=== PATIENT | male | born 1945 | race Caucasian/White ===

== ENCOUNTER → 2020-05-18 | Outpatient (CLI) | payer MEDICARE, OTHER ==
[2015-11-18 15:57] VITALS: BP 108/55
[~2020-05-18] MED LIST: ASPI81TA50 PO; ATOR10TA60 PO; DOCU-109 PO; FERR325T14 PO; LISI20TA18 PO; SILD100T PO; WARF3TAB54 PO
--- NOTE | 2020-05-18 09:04 | RAD ---
US DPLX CAROTID BILAT History: PAD / Spl. Instructions: / History: Multiple grayscale, color, and duplex spectral analysis waveform sonographic images were acquired of the carotid, subclavian, and vertebral arteries. Comparison: None Findings: RIGHT SIDE: Peak systolic flow velocity of the distal CCA is 120 cm/sec. Peak systolic flow velocity of the ICA is 141 cm/sec. The ICA/CCA ratio is 1.2. Peak end diastolic flow velocity of the ICA is 37 cm/sec. The peak systolic velocity of the ECA is 165 cm/sec. Atherosclerotic plaque formation is identified. LEFT SIDE: Peak systolic flow velocity of the distal CCA is 111 cm/sec. Peak systolic flow velocity of the ICA is 273 cm/sec. The ICA/CCA ratio is 2.5. Peak end diastolic flow velocity of the ICA is 73 cm/sec. Peak systolic flow velocity of the ECA is 178 cm/sec. Atherosclerotic plaque formation is identified. Vertebral arteries: Bilateral vertebral arteries demonstrate antegrade flow. Impression: Atherosclerosis of the cervical ICAs with velocities on the left consistent with greater than 70 perc ent stenosis and on the right with 50-69 percent stenosis. PQRS Compliance Statement - Stenosis calculations for carotid ultrasound studies are derived from giovanna idated velocity criteria which are known to correlate with the NASCET methodology. Electronically signed by: Kris Miller MD (05/18/2020 9:01 AM) [id number]
--- NOTE | 2020-05-18 11:43 | RAD ---
US ABDOMINAL AORTA SCREENING AAA Clinical Indication: Reason: tobacco use / Comparison: None. TECHNIQUE: Real-time grayscale, color-flow, Doppler spectral waveform analysis of the abdominal aorta . Findings: The proximal abdominal aorta maximum diameter is 2.5 cm, mid 2 cm, and distal 2 cm. The peak systolic velocity of the abdominal aorta is 108 cm/s. IMPRESSION: There is no abdominal aortic aneurysm. Electronically signed by: Alexander Montes MD (05/18/2020 11:41 AM) [id number]
--- NOTE | 2020-05-18 17:40 | CARD ---
MR#: [id number] Date of Study: 05/18/2020 Ordering Physician: WES JEFF, Referring Physician: WES JEFF, Tech: Cesia Calderon [facility] APPROVED REPORT EXAM: Two-dimensional and M-mode echocardiogram with Doppler and color Doppler. Other Information Quality : GoodHR: 91bpm Rhythm : APC's INDICATION CAD RISK FACTORS Hypertension Hyperlipidemia Smoking 2D DIMENSIONS RVDd3.0 (2.9-3.5cm)Left Atrium(2D)4.1 (1.6-4.0cm) IVSd1.2 (0.7-1.1cm)Aortic Root(2D)3.8 (2.0-3.7cm) LVDd4.7 (3.9-5.9cm)LVOT Diameter2.3 (1.8-2.4cm) PWd1.2 (0.7-1.1cm)LVDs3.0 (2.5-4.0cm) FS (%) 35.9 %SV67.8 ml Aortic Valve AoV Peak Axel.162.9cm/sAoV VTI37.2cm AO Peak GR.10.6mmHgLVOT Peak Axel.112.3cm/s AO Mean GR.6mmHgAVA (VMAX)2.82cm2 Mitral Valve MV E Eqbktjfq15.1cm/sMV DECEL [id number] MV A Nkndueai02.3cm/sE/A Ratio0.9 Pulmonary Valve PV Peak Wqbpjgzn21.9cm/s LEFT VENTRICLE The left ventricle is normal size. There is borderline to mild concentric left ventricular hypertroph y. The left ventricular systolic function is normal and the ejection fraction is within normal range. Estimated ejection fraction 55-60%. There is normal LV segmental wall motion. Transmitral Doppler f low pattern is Grade I-abnormal relaxation pattern. RIGHT VENTRICLE The right ventricle is normal size. There is normal right ventricular wall thickness. The right ventr icular systolic function is normal. ATRIA The left atrium size is normal. The right atrium size is normal. The interatrial septum is intact wit h no evidence for an atrial septal defect or patent foramen ovale as noted on 2-D or Doppler imaging. AORTIC VALVE The aortic valve is calcified but opens well. Doppler and Color Flow revealed no significant aortic r egurgitation. There is no significant aortic valvular stenosis. MITRAL VALVE The mitral valve is normal in structure and function. There is no evidence of mitral valve prolapse. There is no mitral valve stenosis. Doppler and Color-flow revealed mild mitral regurgitation. TRICUSPID VALVE The tricuspid valve is normal in structure and function. Doppler and Color Flow revealed no tricuspid valve regurgitation noted. There is no tricuspid valve stenosis. PULMONIC VALVE The pulmonary valve is normal in structure and function. Doppler and Color Flow revealed no pulmonic valvular regurgitation. GREAT VESSELS The aortic root is mildly enlarged. The IVC is normal in size and collapses >50% with inspiration. PERICARDIAL EFFUSION There is no evidence of significant pericardial effusion. Critical Notification Critical Value: No <Conclusion> The left ventricle is normal size. The left ventricular systolic function is normal and the ejection fraction is within normal range. Estimated ejection fraction 55-60%. There is borderline to mild concentric left ventricular hypertrophy. Doppler and Color Flow revealed no significant aortic regurgitation. There is no significant aortic valvular stenosis. Doppler and Color-flow revealed mild mitral regurgitation. Doppler and Color Flow revealed no tricuspid valve regurgitation noted. The aortic root is mildly enlarged. Signed by : Chilo Ureña MD Electronically Approved : 05/18/2020 17:39:21
== END ==
LOC: US 07:12
PROVIDERS: ATTEND Internal Medicine Cardiovascular Disease
DX: I65.23 Occlusion and stenosis of bilateral carotid arteries (principal); I08.0 Rheumatic disorders of both mitral and aortic valves; I25.10 Atherosclerotic heart disease of native coronary artery without angina pectoris; Z87.891 Personal history of nicotine dependence
CPT/HCPCS: 76770; 93306; 93880

== ENCOUNTER 2021-05-15 16:27 | Inpatient (IN) | payer MEDICARE, OTHER ==
[~2021-05-15] VITALS: Ht 182.9 cm; Wt 81.8 kg
[2021-05-15 14:00] VITALS: BP 120/59
[2021-05-15] MEDS ORDERED: FUROSEMIDE 40 MG/4 ML VIAL. IVP ONE (17:00)
[2021-05-15] MEDS ORDERED: ACETAMINOPHEN 325 MG TABLET. PO PRN (17:00)
[2021-05-15] MEDS ORDERED: ELECTROLYTE (NON-ICU) PROTOCOL. MC PRN (17:00)
[2021-05-15] MEDS ORDERED: CALCIUM CARBONATE 500 MG TAB.CHEW PO PRN (17:00)
[2021-05-15] MEDS ORDERED: ONDANSETRON PF 4 MG/2 ML VIAL. IVP PRN (17:00)
[2021-05-15] MEDS ORDERED: STERILE WATER for RESP 2,000 ML BAG. INH PRN (17:15)
[2021-05-15 18:23] LABS: BASO % 0 % (0-3); EOS # 0.1 x10^3/uL (0.0-0.7); EOS % 0 % (0-3); HEMATOCRIT 29.2 % (39.0-53.0); LYMPH # 0.9 x10^3/uL (1.0-4.8); LYMPH % 6 % (24-48); MEAN CORPUSCULAR HEMOGLOBIN 27 pg (25-35); MEAN CORPUSCULAR HGB CONC 31 g/dL (31-37); MEAN CORPUSCULAR VOLUME 87 fL (79-100); MONO # 1.4 x10^3/uL (0.0-1.1); MONO % 10 % (0-9); NEUT # 12.1 x10^3/uL (1.8-7.7); NEUT % 84 % (31-73); PLATELET COUNT 356 x10^3/uL (140-400); RED BLOOD COUNT 3.37 x10^6/uL (4.30-5.70); RED CELL DISTRIBUTION WIDTH 16.4 % (11.5-14.5); WHITE BLOOD COUNT 14.4 x10^3/uL (4.0-11.0)
[2021-05-15 18:37] LABS: ALBUMIN 3.2 g/dL (3.4-5.0); ALBUMIN/GLOBULIN RATIO 0.7 (1.0-1.7); CHOLESTEROL/HDL RATIO 2.5; GFR 32.9; POTASSIUM 3.5 mmol/L (3.5-5.1); TOTAL BILIRUBIN 0.6 mg/dL (0.2-1.0); TOTAL PROTEIN 7.7 g/dL (6.4-8.2)
--- NOTE | 2021-05-15 19:06 | RAD ---
XR CHEST 1V INDICATION: sob; left pleural effusion on osh imaging . COMPARISON STUDY: None. FINDINGS: Lungs: Normal lung volume. Bilateral perihilar and basilar heterogeneous opacity. Pleura: Trace left pleural effusion. Heart and Mediastinum: Cardiomegaly. Tortuous atherosclerotic aorta. IMPRESSION: Bilateral perihilar and basilar opacities, probably pulmonary edema or multifocal infection. Trace left pleural effusion. Electronically signed by: Kris Miller MD (05/15/2021 7:04 PM) [facility]
[2021-05-15 19:30] VITALS: BP_SYST 124; BP_SYST 149; BP_DIAS 59; BP_DIAS 88
[2021-05-15] MEDS: SENNOSIDES/DOCUSATE 8.6/50MG TABLET. PO SCH (20:40)
[2021-05-15] MEDS: DOCUSATE SODIUM 100 MG CAPSULE. PO SCH (21:00)
[2021-05-15] MEDS: cefTRIAXone IV Push 1 GM VIAL. IVP SCH (21:02)
[2021-05-15] MEDS: ATORVASTATIN CALCIUM 10 MG TABLET. PO SCH (21:02)
[2021-05-15] MEDS: PANTOPRAZOLE IV PUSH 40 MG VIAL. IVP SCH (21:02)
[2021-05-15] MEDS: AZITHROMYCIN 250 MG in IV NORMAL SALINE 250ML 250 ML IV SCH (21:03)
[2021-05-15] MEDS ORDERED: CONTRAST GIVEN. MC PRN (21:30)
[2021-05-15] MEDS ORDERED: IOHEXOL 300 MG/ML 100ML VIAL. IV ONE (21:30)
[2021-05-15 22:00] VITALS: BP 94/70
[2021-05-15] MEDS ORDERED: IV NORMAL SALINE 500ML BAG 500 ML IV PRN (22:00)
[2021-05-15] MEDS ORDERED: DEXMEDETOMIDINE 400 MCG in IV NORMAL SALINE 100ML 96 ML IV PRN (22:00)
[2021-05-15] MEDS ORDERED: ATROPINE 0.5 MG/5 ML DISP.SYRINGE. IV PRN (22:00)
--- NOTE | 2021-05-15 22:10 | PDOC1 ---
History and Physical Date of Service: DOS: DATE: 05/15/21 TIME: 22:10 Chief Complaint: Chief Complain: dyspnea History of Present Illness: HPI: Patient is 75-year-old white male presented to outside emergency room yesterday due to 3 to 4 days history of worsening shortness of breath. Particularly dyspnea on exertion bilateral lower extremity edema. In his usual state of health he can walk without shortness of breath but obviously this has been worsening. Presented to outside hospital and mention he had also been having bright red blood per rectum. He was anemic and did require blood transfusion. Also elevated troponin thought to be secondary to anemia. Eventually transferred here. For GI bleed elevated troponins. On arrival here patient with very labored respirations on nasal cannula. Frequently Saying he could not breathe. Did appear fluid overloaded. Contacted RT department to start Vapotherm. Also gave 80 IV Lasix one-time. Not much improvement with this thus at this point transferred him down to ICU. Started on BiPAP. Very anxious still labored breaths on arrival to ICU. Was maintaining saturations. Started on Precedex drip and instructed to intubate overnight if needed. Levophed ordered as well. Troponins were continually trending up. Cardiology consulted by outside facility and aware of patient. Holding off on heparin drip given GI bleed concern as well. Past Medical/Surgical History: PMH/PSH: CAD HTN Allergies: Allergies: Coded Allergies: No Known Drug Allergies (Unverified , 04/08/15) Family History: Family History: Cannot obtain from patient Social History: Social History: Daily tobacco smoker. Occasional alcohol use denies drug use Current Medications: Current Medications Current Medications Furosemide (Lasix) 80 mg 1X ONCE IVP Last administered on 05/15/21at 17:00; Start 05/15/21 at 17:00; Stop 05/15/21 at 17:01; Status DC Ondansetron HCl (Zofran) 4 mg PRN Q6HRS PRN IVP NAUSEA/VOMITING; Start 05/15/21 at 17:00 Calcium Carbonate/ Glycine (Tums) 500 mg PRN Q3HRS PRN PO UPSET STOMACH; Start 05/15/21 at 17:00 Info (Non-Icu Electrolyte Protocol) 1 ea PRN DAILY PRN MC SEE COMMENTS; Start 05/15/21 at 17:00 Acetaminophen (Tylenol) 650 mg PRN Q6HRS PRN PO Headaches, Temp > 101.5F; Start 05/15/21 at 17:00 Senna/Docusate Sodium (Senna Plus) 1 tab BID PO ; Start 05/15/21 at 21:00 Pantoprazole Sodium (PROTONIX VIAL for IV PUSH) 40 mg DAILYAC IVP Last administered on 05/15/21at 21:02; Start 05/15/21 at 18:00 Atorvastatin Calcium (Lipitor) 10 mg HS PO Last administered on 05/15/21at 21:02; Start 05/15/21 at 21:00 Docusate Sodium (Colace) 100 mg BID PO ; Start 05/15/21 at 21:00 Lisinopril (Prinivil) 10 mg DAILY PO ; Start 05/16/21 at 09:00 Sterile Water (WATER for RESP) 2,000 ml CONT PRN INH VIA VAPOTHERM DEVICE; Start 05/15/21 at 17:15 Ceftriaxone Sodium (Rocephin) 1 gm Q24H IVP Last administered on 05/15/21at 21:02; Start 05/15/21 at 20:00 Azithromycin 250 mg/Sodium Chloride 250 ml @ 250 mls/hr Q24H IV Last administered on 05/15/21at 21:03; Start 05/15/21 at 20:00 Iohexol (Omnipaque 300 Mg/ml) 60 ml 1X ONCE IV Last administered on 05/15/21at 21:51; Start 05/15/21 at 21:30; Stop 05/15/21 at 21:31; Status DC Info (CONTRAST GIVEN -- Rx MONITORING) 1 each PRN DAILY PRN MC SEE COMMENTS; Start 05/15/21 at 21:30; Stop 05/17/21 at 21:29 Dexmedetomidine HCl 400 mcg/ Sodium Chloride 100 ml @ 4.295 mls/ hr CONT PRN IV PER PROTOCOL; Start 05/15/21 at 22:00 Sodium Chloride 500 ml @ 500 mls/hr 1X PRN PRN IV SEE COMMENTS; Start 05/15/21 at 22:00 Atropine Sulfate (ATROPINE 0.5mg SYRINGE) 0.5 mg PRN Q5MIN PRN IV SEE COMMENTS; Start 05/15/21 at 22:00 Active Scripts Active Reported Colace (Docusate Sodium) 100 Mg Capsule 1 Cap PO BID Coumadin (Warfarin Sodium) 3 Mg Tablet 1 Tab PO DAILY Ferrous Sulfate 325 Mg Tablet 325 Mg PO Next dose tomorrow 11/19/15 09 am. Viagra (Sildenafil Citrate) 100 Mg Tablet 100 Mg PO ONCE Resume prior to hospitalization. Atorvastatin Calcium 10 Mg Tablet 10 Mg PO HS Next dose tonight at bed time. Lisinopril 20 Mg Tablet 10 Mg PO DAILY Next dose tomorrow 11/19/15 at 9 am. ROS: Review of Systems Review of System Other than labored respirations patient unable to provide much in way review of systems Physical Exam: Vital Signs: Vital Signs Date Time Temp Pulse Resp B/P (MAP) Pulse Ox O2 Delivery O2 Flow Rate FiO2 05/15/21 21:14 90 High Flow Nasal Cannula 05/15/21 20:00 28.0 05/15/21 19:30 98.2 119 28 124/59 (80) 98.2 Physcial Exam: GEN: Severe distress labored respirations HEENT: Normal cephalic, atraumatic, external auditory canals are patent EYES: Extraocular muscles are intact, pupil are equally round and reactive to light and accommodation MUSCULOSKELETAL: Well developed , well nourished, good range of motion ENDOCRINE: No thyromegaly was palpated LYMPHATICS: No cervical chain or axillary nodes were noted HEMATOPOIETIC: No bruising NECK: Supple, no JVD, no thyromegaly was noted LUNGS: Decreased air entry throughout. Labored respirations. On BiPAP HEART: Tachycardic ABDOMEN: Soft, nontender. Positive bowel sounds, no organomegaly, normal bowel sounds EXTREMITIES: Bilateral lower extremity edema NEUROLOGIC: Normal speech and tone. A&O x 3, moves all extremities, no obvious focal deficits PSYCHIATRIC: Normal affect, normal mood. Stable SKIN: No ulcerations or rashes, good skin turgor, no jaundice VASCULAR: Good capillary refill, neurovascular bundle appears to be intact Labs: Labs: Laboratory Tests Test 05/15/21 18:10 White Blood Count 14.4 x10^3/uL (4.0-11.0) Red Blood Count 3.37 x10^6/uL (4.30-5.70) Hemoglobin 9.0 g/dL (13.0-17.5) Hematocrit 29.2 % (39.0-53.0) Mean Corpuscular Volume 87 fL (79-100) Mean Corpuscular Hemoglobin 27 pg (25-35) Mean Corpuscular Hemoglobin Concent 31 g/dL (31-37) Red Cell Distribution Width 16.4 % (11.5-14.5) Platelet Count 356 x10^3/uL (140-400) Neutrophils (%) (Auto) 84 % (31-73) Lymphocytes (%) (Auto) 6 % (24-48) Monocytes (%) (Auto) 10 % (0-9) Eosinophils (%) (Auto) 0 % (0-3) Basophils (%) (Auto) 0 % (0-3) Neutrophils # (Auto) 12.1 x10^3/uL (1.8-7.7) Lymphocytes # (Auto) 0.9 x10^3/uL (1.0-4.8) Monocytes # (Auto) 1.4 x10^3/uL (0.0-1.1) Eosinophils # (Auto) 0.1 x10^3/uL (0.0-0.7) Basophils # (Auto) 0.0 x10^3/uL (0.0-0.2) Sodium Level 135 mmol/L (136-145) Potassium Level 3.5 mmol/L (3.5-5.1) Chloride Level 99 mmol/L (98-107) Carbon Dioxide Level 21 mmol/L (21-32) Anion Gap 15 (6-14) Blood Urea Nitrogen 32 mg/dL (8-26) Creatinine 2.0 mg/dL (0.7-1.3) Estimated GFR (Cockcroft-Gault) 32.9 BUN/Creatinine Ratio 16 (6-20) Glucose Level 137 mg/dL (70-99) Calcium Level 8.0 mg/dL (8.5-10.1) Total Bilirubin 0.6 mg/dL (0.2-1.0) Aspartate Amino Transf (AST/SGOT) 65 U/L (15-37) Alanine Aminotransferase (ALT/SGPT) 42 U/L (16-63) Alkaline Phosphatase 67 U/L (46-116) Troponin I High Sensitivity 6592 ng/L (4-75) Total Protein 7.7 g/dL (6.4-8.2) Albumin 3.2 g/dL (3.4-5.0) Albumin/Globulin Ratio 0.7 (1.0-1.7) Triglycerides Level 58 mg/dL (0-150) Cholesterol Level 98 mg/dL (0-200) LDL Cholesterol, Calculated 47 mg/dL (0-100) VLDL Cholesterol, Calculated 12 mg/dL (0-40) Non-HDL Cholesterol Calculated 59 mg/dL (0-129) HDL Cholesterol 39 mg/dL (40-60) Cholesterol/HDL Ratio 2.5 Thyroid Stimulating Hormone (TSH) 1.070 uIU/mL (0.358-3.74) Laboratory Tests Test 05/15/21 18:10 White Blood Count 14.4 x10^3/uL (4.0-11.0) Red Blood Count 3.37 x10^6/uL (4.30-5.70) Hemoglobin 9.0 g/dL (13.0-17.5) Hematocrit 29.2 % (39.0-53.0) Mean Corpuscular Volume 87 fL (79-100) Mean Corpuscular Hemoglobin 27 pg (25-35) Mean Corpuscular Hemoglobin Concent 31 g/dL (31-37) Red Cell Distribution Width 16.4 % (11.5-14.5) Platelet Count 356 x10^3/uL (140-400) Neutrophils (%) (Auto) 84 % (31-73) Lymphocytes (%) (Auto) 6 % (24-48) Monocytes (%) (Auto) 10 % (0-9) Eosinophils (%) (Auto) 0 % (0-3) Basophils (%) (Auto) 0 % (0-3) Neutrophils # (Auto) 12.1 x10^3/uL (1.8-7.7) Lymphocytes # (Auto) 0.9 x10^3/uL (1.0-4.8) Monocytes # (Auto) 1.4 x10^3/uL (0.0-1.1) Eosinophils # (Auto) 0.1 x10^3/uL (0.0-0.7) Basophils # (Auto) 0.0 x10^3/uL (0.0-0.2) Sodium Level 135 mmol/L (136-145) Potassium Level 3.5 mmol/L (3.5-5.1) Chloride Level 99 mmol/L (98-107) Carbon Dioxide Level 21 mmol/L (21-32) Anion Gap 15 (6-14) Blood Urea Nitrogen 32 mg/dL (8-26) Creatinine 2.0 mg/dL (0.7-1.3) Estimated GFR (Cockcroft-Gault) 32.9 BUN/Creatinine Ratio 16 (6-20) Glucose Level 137 mg/dL (70-99) Calcium Level 8.0 mg/dL (8.5-10.1) Total Bilirubin 0.6 mg/dL (0.2-1.0) Aspartate Amino Transf (AST/SGOT) 65 U/L (15-37) Alanine Aminotransferase (ALT/SGPT) 42 U/L (16-63) Alkaline Phosphatase 67 U/L (46-116) Troponin I High Sensitivity 6592 ng/L (4-75) Total Protein 7.7 g/dL (6.4-8.2) Albumin 3.2 g/dL (3.4-5.0) Albumin/Globulin Ratio 0.7 (1.0-1.7) Triglycerides Level 58 mg/dL (0-150) Cholesterol Level 98 mg/dL (0-200) LDL Cholesterol, Calculated 47 mg/dL (0-100) VLDL Cholesterol, Calculated 12 mg/dL (0-40) Non-HDL Cholesterol Calculated 59 mg/dL (0-129) HDL Cholesterol 39 mg/dL (40-60) Cholesterol/HDL Ratio 2.5 Thyroid Stimulating Hormone (TSH) 1.070 uIU/mL (0.358-3.74) Assessment/Plan Assessment/Plan Acute anemia secondary to GI bleed, troponinemia suspect type II NSTEMI secondary to bleed?, Acute hypoxic respiratory failure secondary to fluid overload suspect CHF exacerbation, ASHA; history CAD hypertension -Transferred from outside facility where he presented with shortness of breath and acute anemia. Noted to be fluid overloaded there -Presented here labored respirations. Eventually transferred to ICU and on BiPAP currently tolerating with Precedex -One-time 80 IV Lasix given on the floor for apparent fluid overload closely monitor urine output -Continue to trend troponins. Holding off on heparin drip due to GI bleed concern -Cardiology consultation -Required 1 unit packed red blood cells at outside emergency room. GI consult. Trend hemoglobin -Elevated creatinine has trended up. Consult to nephrology -Pulm consult for respiratory failure, BiPAP and if needed ventilator management -Home meds as indicated -Possible Collection Support Specialist in the morning? Was able to elicit from patient he is a full code 60 minutes critical care time. Justifications for Admission Other Justification ORLANDO GONZALEZ MD May 15, 2021 22:10
[2021-05-15 23:00] VITALS: BP 85/59
[2021-05-15 23:01] LABS: BASE EXCESS COOX -5 mmol/L (-3-3); HCO3 COOX 19 mmol/L (21-28); OXYHEMOGLOBIN 92.7 %; PCO2 COOX 32 mmHg (35-46); PO2 COOX 74 mmHg (65-108); SAT O2 COOX 93 % (92-99)
[2021-05-16] VITALS (27 sets, daily range): BP systolic 92–115; BP diastolic 46–70
[2021-05-16] MEDS ORDERED: NOREPINEPHRINE VIAL 8 MG in IV DEXTROSE 5% 250 ML IV PRN (00:30)
--- NOTE | 2021-05-16 01:20 | RAD ---
EXAM: CT CHEST WITH CONTRAST HISTORY: Shortness of breath on vapotherm. Emphysema, pneumonia. COMPARISON: None available TECHNIQUE: Helical CT of the chest performed after administration of 60 mL Omnipaque 300 intravenous contrast. Coronal and sagittal reformats were obtained. One or more of the following individualized dose reduction techniques were utilized for this examinat ion: 1. Automated exposure control 2. Adjustment of the mA and/or kV according to patient size 3. Use of iterative reconstruction technique. FINDINGS: Thyroid gland and thoracic inlet: Normal. Heart and great vessels: Heart is mildly enlarged. No pericardial effusion. Thoracic aorta is normal in caliber. There are coronary artery calcifications. Mediastinum and ant: Small mediastinal and hilar lymph nodes, likely reactive. Lungs and pleura: There are small bilateral pleural effusions with adjacent consolidative and groundg lass opacities in the posterior lower lobes. There is diffuse interlobular septal thickening. Mild gr oundglass and consolidative opacities in the posterior upper lobes. Motion artifact limits evaluatio n of the apices. Chest wall and axillae: No axillary lymphadenopathy. Upper abdomen: Probable sludge in the gallbladder. Upper abdomen is otherwise unremarkable. Bones: No acute osseous abnormality. IMPRESSION: 1. Diffuse interlobular septal thickening with dependent opacities, suspicious for mild pulmonary ed colten. Superimposed pneumonia is not excluded in the lower lobes. 2. Small pleural effusions. 3. Mild cardiomegaly. Coronary calcifications. Electronically signed by: Kay Lin MD (05/16/2021 1:18 AM) [facility]
[2021-05-16 04:39] LABS: BASO # 0.1 x10^3/uL (0.0-0.2); BASO % 1 % (0-3); EOS % 0 % (0-3); HEMOGLOBIN 8.5 g/dL (13.0-17.5); LYMPH # 0.8 x10^3/uL (1.0-4.8); LYMPH % 6 % (24-48); MEAN CORPUSCULAR HEMOGLOBIN 27 pg (25-35); MEAN CORPUSCULAR HGB CONC 31 g/dL (31-37); MEAN CORPUSCULAR VOLUME 86 fL (79-100); MONO # 1.4 x10^3/uL (0.0-1.1); MONO % 10 % (0-9); NEUT # 12.1 x10^3/uL (1.8-7.7); NEUT % 84 % (31-73); PLATELET COUNT 306 x10^3/uL (140-400); RED BLOOD COUNT 3.14 x10^6/uL (4.30-5.70); RED CELL DISTRIBUTION WIDTH 16.7 % (11.5-14.5); WHITE BLOOD COUNT 14.4 x10^3/uL (4.0-11.0)
[2021-05-16 05:05] LABS: ALBUMIN 2.9 g/dL (3.4-5.0); ALBUMIN/GLOBULIN RATIO 0.8 (1.0-1.7); CALCIUM 7.7 mg/dL (8.5-10.1); CREATININE 2.2 mg/dL (0.7-1.3); GFR 29.5; POTASSIUM 4.2 mmol/L (3.5-5.1); TOTAL BILIRUBIN 0.4 mg/dL (0.2-1.0); TOTAL PROTEIN 6.7 g/dL (6.4-8.2)
[2021-05-16] MEDS ORDERED: PERFLUTREN PROTEIN-A MICROSPHR 0.22 MG/ML 3 ML VIAL. IV ONE (08:15)
--- NOTE | 2021-05-16 08:15 | PDOC ---
PULMONARY PROGRESS NOTES DATE: 05/16/21 TIME: 08:14 Vitals Vital Signs Date Time Temp Pulse Resp B/P (MAP) Pulse Ox O2 Delivery O2 Flow Rate FiO2 05/16/21 06:00 93 18 99/62 (74) 100 BiPAP/CPAP 05/16/21 04:00 97.7 97.7 05/15/21 21:35 40.0 Labs Laboratory Tests Test 05/15/21 18:10 05/15/21 21:35 05/16/21 04:20 White Blood Count 14.4 x10^3/uL (4.0-11.0) 14.4 x10^3/uL (4.0-11.0) Red Blood Count 3.37 x10^6/uL (4.30-5.70) 3.14 x10^6/uL (4.30-5.70) Hemoglobin 9.0 g/dL (13.0-17.5) 8.5 g/dL (13.0-17.5) Hematocrit 29.2 % (39.0-53.0) 27.0 % (39.0-53.0) Mean Corpuscular Volume 87 fL (79-100) 86 fL (79-100) Mean Corpuscular Hemoglobin 27 pg (25-35) 27 pg (25-35) Mean Corpuscular Hemoglobin Concent 31 g/dL (31-37) 31 g/dL (31-37) Red Cell Distribution Width 16.4 % (11.5-14.5) 16.7 % (11.5-14.5) Platelet Count 356 x10^3/uL (140-400) 306 x10^3/uL (140-400) Neutrophils (%) (Auto) 84 % (31-73) 84 % (31-73) Lymphocytes (%) (Auto) 6 % (24-48) 6 % (24-48) Monocytes (%) (Auto) 10 % (0-9) 10 % (0-9) Eosinophils (%) (Auto) 0 % (0-3) 0 % (0-3) Basophils (%) (Auto) 0 % (0-3) 1 % (0-3) Neutrophils # (Auto) 12.1 x10^3/uL (1.8-7.7) 12.1 x10^3/uL (1.8-7.7) Lymphocytes # (Auto) 0.9 x10^3/uL (1.0-4.8) 0.8 x10^3/uL (1.0-4.8) Monocytes # (Auto) 1.4 x10^3/uL (0.0-1.1) 1.4 x10^3/uL (0.0-1.1) Eosinophils # (Auto) 0.1 x10^3/uL (0.0-0.7) 0.0 x10^3/uL (0.0-0.7) Basophils # (Auto) 0.0 x10^3/uL (0.0-0.2) 0.1 x10^3/uL (0.0-0.2) Sodium Level 135 mmol/L (136-145) 137 mmol/L (136-145) Potassium Level 3.5 mmol/L (3.5-5.1) 4.2 mmol/L (3.5-5.1) Chloride Level 99 mmol/L (98-107) 100 mmol/L (98-107) Carbon Dioxide Level 21 mmol/L (21-32) 23 mmol/L (21-32) Anion Gap 15 (6-14) 14 (6-14) Blood Urea Nitrogen 32 mg/dL (8-26) 36 mg/dL (8-26) Creatinine 2.0 mg/dL (0.7-1.3) 2.2 mg/dL (0.7-1.3) Estimated GFR (Cockcroft-Gault) 32.9 29.5 BUN/Creatinine Ratio 16 (6-20) 16 (6-20) Glucose Level 137 mg/dL (70-99) 104 mg/dL (70-99) Calcium Level 8.0 mg/dL (8.5-10.1) 7.7 mg/dL (8.5-10.1) Total Bilirubin 0.6 mg/dL (0.2-1.0) 0.4 mg/dL (0.2-1.0) Aspartate Amino Transf (AST/SGOT) 65 U/L (15-37) 91 U/L (15-37) Alanine Aminotransferase (ALT/SGPT) 42 U/L (16-63) 42 U/L (16-63) Alkaline Phosphatase 67 U/L (46-116) 65 U/L (46-116) Troponin I High Sensitivity 6592 ng/L (4-75) 97449 ng/L (4-75) Total Protein 7.7 g/dL (6.4-8.2) 6.7 g/dL (6.4-8.2) Albumin 3.2 g/dL (3.4-5.0) 2.9 g/dL (3.4-5.0) Albumin/Globulin Ratio 0.7 (1.0-1.7) 0.8 (1.0-1.7) Triglycerides Level 58 mg/dL (0-150) Cholesterol Level 98 mg/dL (0-200) LDL Cholesterol, Calculated 47 mg/dL (0-100) VLDL Cholesterol, Calculated 12 mg/dL (0-40) Non-HDL Cholesterol Calculated 59 mg/dL (0-129) HDL Cholesterol 39 mg/dL (40-60) Cholesterol/HDL Ratio 2.5 Thyroid Stimulating Hormone (TSH) 1.070 uIU/mL (0.358-3.74) O2 Saturation 93 % (92-99) Arterial Blood pH 7.39 (7.35-7.45) Arterial Blood pCO2 at Patient Temp 32 mmHg (35-46) Arterial Blood pO2 at Patient Temp 74 mmHg (65-108) Arterial Blood HCO3 19 mmol/L (21-28) Arterial Blood Base Excess -5 mmol/L (-3-3) Oxyhemoglobin 92.7 % Methemoglobin 0.0 % (0.0-1.9) Carbon Monoxide, Quantitative 0.0 % (0.0-1.9) FiO2 40l 100% vapotherm Laboratory Tests Test 05/15/21 18:10 05/15/21 21:35 05/16/21 04:20 White Blood Count 14.4 x10^3/uL (4.0-11.0) 14.4 x10^3/uL (4.0-11.0) Red Blood Count 3.37 x10^6/uL (4.30-5.70) 3.14 x10^6/uL (4.30-5.70) Hemoglobin 9.0 g/dL (13.0-17.5) 8.5 g/dL (13.0-17.5) Hematocrit 29.2 % (39.0-53.0) 27.0 % (39.0-53.0) Mean Corpuscular Volume 87 fL (79-100) 86 fL (79-100) Mean Corpuscular Hemoglobin 27 pg (25-35) 27 pg (25-35) Mean Corpuscular Hemoglobin Concent 31 g/dL (31-37) 31 g/dL (31-37) Red Cell Distribution Width 16.4 % (11.5-14.5) 16.7 % (11.5-14.5) Platelet Count 356 x10^3/uL (140-400) 306 x10^3/uL (140-400) Neutrophils (%) (Auto) 84 % (31-73) 84 % (31-73) Lymphocytes (%) (Auto) 6 % (24-48) 6 % (24-48) Monocytes (%) (Auto) 10 % (0-9) 10 % (0-9) Eosinophils (%) (Auto) 0 % (0-3) 0 % (0-3) Basophils (%) (Auto) 0 % (0-3) 1 % (0-3) Neutrophils # (Auto) 12.1 x10^3/uL (1.8-7.7) 12.1 x10^3/uL (1.8-7.7) Lymphocytes # (Auto) 0.9 x10^3/uL (1.0-4.8) 0.8 x10^3/uL (1.0-4.8) Monocytes # (Auto) 1.4 x10^3/uL (0.0-1.1) 1.4 x10^3/uL (0.0-1.1) Eosinophils # (Auto) 0.1 x10^3/uL (0.0-0.7) 0.0 x10^3/uL (0.0-0.7) Basophils # (Auto) 0.0 x10^3/uL (0.0-0.2) 0.1 x10^3/uL (0.0-0.2) Sodium Level 135 mmol/L (136-145) 137 mmol/L (136-145) Potassium Level 3.5 mmol/L (3.5-5.1) 4.2 mmol/L (3.5-5.1) Chloride Level 99 mmol/L (98-107) 100 mmol/L (98-107) Carbon Dioxide Level 21 mmol/L (21-32) 23 mmol/L (21-32) Anion Gap 15 (6-14) 14 (6-14) Blood Urea Nitrogen 32 mg/dL (8-26) 36 mg/dL (8-26) Creatinine 2.0 mg/dL (0.7-1.3) 2.2 mg/dL (0.7-1.3) Estimated GFR (Cockcroft-Gault) 32.9 29.5 BUN/Creatinine Ratio 16 (6-20) 16 (6-20) Glucose Level 137 mg/dL (70-99) 104 mg/dL (70-99) Calcium Level 8.0 mg/dL (8.5-10.1) 7.7 mg/dL (8.5-10.1) Total Bilirubin 0.6 mg/dL (0.2-1.0) 0.4 mg/dL (0.2-1.0) Aspartate Amino Transf (AST/SGOT) 65 U/L (15-37) 91 U/L (15-37) Alanine Aminotransferase (ALT/SGPT) 42 U/L (16-63) 42 U/L (16-63) Alkaline Phosphatase 67 U/L (46-116) 65 U/L (46-116) Troponin I High Sensitivity 6592 ng/L (4-75) 32718 ng/L (4-75) Total Protein 7.7 g/dL (6.4-8.2) 6.7 g/dL (6.4-8.2) Albumin 3.2 g/dL (3.4-5.0) 2.9 g/dL (3.4-5.0) Albumin/Globulin Ratio 0.7 (1.0-1.7) 0.8 (1.0-1.7) Triglycerides Level 58 mg/dL (0-150) Cholesterol Level 98 mg/dL (0-200) LDL Cholesterol, Calculated 47 mg/dL (0-100) VLDL Cholesterol, Calculated 12 mg/dL (0-40) Non-HDL Cholesterol Calculated 59 mg/dL (0-129) HDL Cholesterol 39 mg/dL (40-60) Cholesterol/HDL Ratio 2.5 Thyroid Stimulating Hormone (TSH) 1.070 uIU/mL (0.358-3.74) O2 Saturation 93 % (92-99) Arterial Blood pH 7.39 (7.35-7.45) Arterial Blood pCO2 at Patient Temp 32 mmHg (35-46) Arterial Blood pO2 at Patient Temp 74 mmHg (65-108) Arterial Blood HCO3 19 mmol/L (21-28) Arterial Blood Base Excess -5 mmol/L (-3-3) Oxyhemoglobin 92.7 % Methemoglobin 0.0 % (0.0-1.9) Carbon Monoxide, Quantitative 0.0 % (0.0-1.9) FiO2 40l 100% vapotherm Medications Active Scripts Medications Dose Route/Sig Max Daily Dose Days Date Category Dose Instructions Colace (Docusate Sodium) 100 Mg Capsule 1 Cap PO BID 11/18/15 Reported Coumadin (Warfarin Sodium) 3 Mg Tablet 1 Tab PO DAILY 11/18/15 Reported Ferrous Sulfate 325 Mg Tablet 325 Mg PO 10/29/15 Reported Next dose tomorrow 11/19/15 09 am. Viagra (Sildenafil Citrate) 100 Mg Tablet 100 Mg PO ONCE 10/29/15 Reported Resume prior to hospitalization. Atorvastatin Calcium 10 Mg Tablet 10 Mg PO HS 10/29/15 Reported Next dose tonight at bed time. Lisinopril 20 Mg Tablet 10 Mg PO DAILY 04/08/15 Reported Next dose tomorrow 11/19/15 at 9 am. Impression . Full consult dictated acute hypoxemic respiratory failure secondary to acute heart failure Tobacco dependent Acute blood loss anemia plan patient to undergo cardiac catheterization, Titrate FiO2 down GRICELDA DENNISON MD May 16, 2021 08:14
[2021-05-16] MEDS: DOCUSATE SODIUM 100 MG CAPSULE. PO SCH ×2 (09:00→21:34)
[2021-05-16] MEDS: SENNOSIDES/DOCUSATE 8.6/50MG TABLET. PO SCH ×2 (09:00→21:34)
[2021-05-16] MEDS ORDERED: LISINOPRIL 20 MG TABLET PO SCH (09:00)
--- NOTE | 2021-05-16 09:41 | PDOC2 ---
GI CONSULT Date of Service: DATE: 05/16/21 TIME: 09:41 Reason For Consult: hematochezia HPI: HPI: 75 y/o male from [facility], evaluated there for worsening SOA, now on BiPAP w/ elevated troponin and plans for cardiac cath. Noted w/ anemia (Hgb 6.9 initially) s/p transfusion 2 units pRBCs. Per nursing, large bloody stool at [facility], no bleeding here. Per ER notes, red and dark blood on rectal exam. He reports intermittent bleeding (thinks red) w/ stool for a month or more. Also has had recent heartburn. Denies dysphagia, n/v, abd pain, diarrhea, constipation, change in appetite, or weight loss. Reports normal colonoscopy years ago. No previous EGD. No GB, liver, pancreas, or PUD history. Per staff, ?was taking Warfarin? - he denies, also denies NSAIDs - iron on med list. PMH: PMH: CAD, HTN, COPD, HLD, carotid artery disease left hip surgery FH: Family History: No pertinent hx Social History: Smoke: Quit ALCOHOL: occassional Drugs: None ROS: Difficult w/ BiPAP - see HPI. Vitals: Vitals: Vital Signs Date Time Temp Pulse Resp B/P (MAP) Pulse Ox O2 Delivery O2 Flow Rate FiO2 05/16/21 06:00 93 18 99/62 (74) 100 BiPAP/CPAP 05/16/21 04:00 97.7 97.7 05/15/21 21:35 40.0 Labs: Labs: Laboratory Tests Test 05/15/21 18:10 05/15/21 21:35 05/16/21 04:20 White Blood Count 14.4 x10^3/uL (4.0-11.0) 14.4 x10^3/uL (4.0-11.0) Red Blood Count 3.37 x10^6/uL (4.30-5.70) 3.14 x10^6/uL (4.30-5.70) Hemoglobin 9.0 g/dL (13.0-17.5) 8.5 g/dL (13.0-17.5) Hematocrit 29.2 % (39.0-53.0) 27.0 % (39.0-53.0) Mean Corpuscular Volume 87 fL (79-100) 86 fL (79-100) Mean Corpuscular Hemoglobin 27 pg (25-35) 27 pg (25-35) Mean Corpuscular Hemoglobin Concent 31 g/dL (31-37) 31 g/dL (31-37) Red Cell Distribution Width 16.4 % (11.5-14.5) 16.7 % (11.5-14.5) Platelet Count 356 x10^3/uL (140-400) 306 x10^3/uL (140-400) Neutrophils (%) (Auto) 84 % (31-73) 84 % (31-73) Lymphocytes (%) (Auto) 6 % (24-48) 6 % (24-48) Monocytes (%) (Auto) 10 % (0-9) 10 % (0-9) Eosinophils (%) (Auto) 0 % (0-3) 0 % (0-3) Basophils (%) (Auto) 0 % (0-3) 1 % (0-3) Neutrophils # (Auto) 12.1 x10^3/uL (1.8-7.7) 12.1 x10^3/uL (1.8-7.7) Lymphocytes # (Auto) 0.9 x10^3/uL (1.0-4.8) 0.8 x10^3/uL (1.0-4.8) Monocytes # (Auto) 1.4 x10^3/uL (0.0-1.1) 1.4 x10^3/uL (0.0-1.1) Eosinophils # (Auto) 0.1 x10^3/uL (0.0-0.7) 0.0 x10^3/uL (0.0-0.7) Basophils # (Auto) 0.0 x10^3/uL (0.0-0.2) 0.1 x10^3/uL (0.0-0.2) Sodium Level 135 mmol/L (136-145) 137 mmol/L (136-145) Potassium Level 3.5 mmol/L (3.5-5.1) 4.2 mmol/L (3.5-5.1) Chloride Level 99 mmol/L (98-107) 100 mmol/L (98-107) Carbon Dioxide Level 21 mmol/L (21-32) 23 mmol/L (21-32) Anion Gap 15 (6-14) 14 (6-14) Blood Urea Nitrogen 32 mg/dL (8-26) 36 mg/dL (8-26) Creatinine 2.0 mg/dL (0.7-1.3) 2.2 mg/dL (0.7-1.3) Estimated GFR (Cockcroft-Gault) 32.9 29.5 BUN/Creatinine Ratio 16 (6-20) 16 (6-20) Glucose Level 137 mg/dL (70-99) 104 mg/dL (70-99) Calcium Level 8.0 mg/dL (8.5-10.1) 7.7 mg/dL (8.5-10.1) Total Bilirubin 0.6 mg/dL (0.2-1.0) 0.4 mg/dL (0.2-1.0) Aspartate Amino Transf (AST/SGOT) 65 U/L (15-37) 91 U/L (15-37) Alanine Aminotransferase (ALT/SGPT) 42 U/L (16-63) 42 U/L (16-63) Alkaline Phosphatase 67 U/L (46-116) 65 U/L (46-116) Troponin I High Sensitivity 6592 ng/L (4-75) 75479 ng/L (4-75) Total Protein 7.7 g/dL (6.4-8.2) 6.7 g/dL (6.4-8.2) Albumin 3.2 g/dL (3.4-5.0) 2.9 g/dL (3.4-5.0) Albumin/Globulin Ratio 0.7 (1.0-1.7) 0.8 (1.0-1.7) Triglycerides Level 58 mg/dL (0-150) Cholesterol Level 98 mg/dL (0-200) LDL Cholesterol, Calculated 47 mg/dL (0-100) VLDL Cholesterol, Calculated 12 mg/dL (0-40) Non-HDL Cholesterol Calculated 59 mg/dL (0-129) HDL Cholesterol 39 mg/dL (40-60) Cholesterol/HDL Ratio 2.5 Thyroid Stimulating Hormone (TSH) 1.070 uIU/mL (0.358-3.74) O2 Saturation 93 % (92-99) Arterial Blood pH 7.39 (7.35-7.45) Arterial Blood pCO2 at Patient Temp 32 mmHg (35-46) Arterial Blood pO2 at Patient Temp 74 mmHg (65-108) Arterial Blood HCO3 19 mmol/L (21-28) Arterial Blood Base Excess -5 mmol/L (-3-3) Oxyhemoglobin 92.7 % Methemoglobin 0.0 % (0.0-1.9) Carbon Monoxide, Quantitative 0.0 % (0.0-1.9) FiO2 40l 100% vapotherm Allergies: Coded Allergies: No Known Drug Allergies (Unverified , 04/08/15) Medications: Current Medications Medications (Trade) Dose Ordered Sig/Layne Route PRN Reason Start Time Stop Time Status Last Admin Dose Admin Furosemide (Lasix) 80 mg 1X ONCE IVP 05/15/21 17:00 05/15/21 17:01 DC 05/15/21 17:00 Pantoprazole Sodium (PROTONIX VIAL for IV PUSH) 40 mg DAILYAC IVP 05/15/21 18:00 05/15/21 21:02 Atorvastatin Calcium (Lipitor) 10 mg HS PO 05/15/21 21:00 05/15/21 21:02 Ceftriaxone Sodium (Rocephin) 1 gm Q24H IVP 05/15/21 20:00 05/15/21 21:02 Azithromycin 250 mg/Sodium Chloride 250 ml @ 250 mls/hr Q24H IV 05/15/21 20:00 05/15/21 21:03 Iohexol (Omnipaque 300 Mg/ml) 60 ml 1X ONCE IV 05/15/21 21:30 05/15/21 21:31 DC 05/15/21 21:51 Dexmedetomidine HCl 400 mcg/ Sodium Chloride 100 ml @ 4.295 mls/ hr CONT PRN IV PER PROTOCOL 05/15/21 22:00 05/15/21 22:25 Imaging: Imaging: CXR IMPRESSION: Bilateral perihilar and basilar opacities, probably pulmonary edema or multifocal infection. Trace left pleural effusion. Chest CT IMPRESSION: 1. Diffuse interlobular septal thickening with dependent opacities, suspicious for mild pulmonary edema. Superimposed pneumonia is not excluded in the lower lobes. 2. Small pleural effusions. 3. Mild cardiomegaly. Coronary calcifications. Echo <Conclusion> The left ventricle is normal size. The left ventricular systolic function is normal and the ejection fraction is within normal range. Estimated ejection fraction 55-60%. There is borderline to mild concentric left ventricular hypertrophy. Doppler and Color Flow revealed no significant aortic regurgitation. There is no significant aortic valvular stenosis. Doppler and Color-flow revealed mild mitral regurgitation. Doppler and Color Flow revealed no tricuspid valve regurgitation noted. The aortic root is mildly enlarged. PE: GEN: in COVID isolation while awaiting PCR HEENT: Atraumatic, PERRL LUNGS: BiPAP HEART: RRR ABD: S/ND/NT EXTREMITY: No edema SKIN: No rashes, no jaundice NEURO/PSYCH: A & O 3 A/P: A/P: CHF/resp failure, NSTEMI, hypotension, ASHA Anemia - improved w/ transfusions Rectal bleeding - ongoing for at least a month - none @ [facility] Heartburn - new CRC screen - reports normal colonoscopy years ago Rapid COVID negative -- Chronic rectal bleeding, anemia requiring transfusions - ?lower GI course? - not stable for 'scopes - observe for recurrent bleeding consider abdominal imaging later (bleed scan, CT/CTA, etc). Agree w/ IV PPI. Check anemia parameters (though has already transfused). LIBERTAD BARCENAS May 16, 2021 09:41
--- NOTE | 2021-05-16 09:45 | PDOC2 ---
NEEMA ALVAREZ ADOPTION COORDINATOR 05/16/21 0945: CARDIAC CONSULT DATE OF CONSULT Date of Consult DATE: 05/16/21 TIME: 09:44 REASON FOR CONSULT Reason for Consult: Fluid overload, elevated troponin REFERRING PHYSICIAN Referring Physician: Dr. Perez SOURCE Source: Chart review, Patient HISTORY OF PRESENT ILLNESS HISTORY OF PRESENT ILLNESS This is a 75 yo male who presented to [facility] secondary to shortness of breath. Patient reports dyspnea upon exertion for the last 2 weeks. Has progressively worsened over the last 3-4 days. Having shortness of breath at rest. Associated with mild LE edema. CXR noted with CHF. Patient also reported bright red blood per rectum. Reports this has been intermittent for the last several months. Denies any dark stools. Does have a history of hemorrhoids. Hgb was 6.9 and patient received 2 units of PRBC's. Troponin was elevated at 5029. Anticoagulation was not given due to concerns for GIB. Patient was transferred to [facility] for further evaluation and treatment. Upon arrival, became significantly more dyspneic with labored respirations. Was given IV Lasix and placed on BiPAP and transferred to ICU. Troponin level increased to 16,603. Patient denies experiencing any chest pain, but reports having "heart burn" intermittently for the last couple of weeks. Describes as ce ntral chest burning/pressure. Also associated with diaphoresis and nausea. Has taken Tums several times, which does seem to improved his symptoms. Initial labs also noted with ASHA. Denies any prior h/o renal disease and renal function was WNL 11/2018 per review of [place] records. Is presently CP free and breathing has improved some. PAST MEDICAL HISTORY Cardiovascular: HTN, Hyperlipidemia, Other (carotid artery disease ) Musculoskeletal: Osteoarthritis PAST SURGICAL HISTORY Past Surgical History: Total hip replacement (left ) FAMILY HISTORY Family History: Heart Disease (father ), Hypertension SOCIAL HISTORY Smoke: <1 pack per day ALCOHOL: other (2-4 beers daily ) Drugs: None Lives: Alone CURRENT MEDICATIONS CURRENT MEDICATIONS Current Medications Medications (Trade) Dose Ordered Sig/Layne Route PRN Reason Start Time Stop Time Status Last Admin Dose Admin Furosemide (Lasix) 80 mg 1X ONCE IVP 05/15/21 17:00 05/15/21 17:01 DC 05/15/21 17:00 Pantoprazole Sodium (PROTONIX VIAL for IV PUSH) 40 mg DAILYAC IVP 05/15/21 18:00 05/15/21 21:02 Atorvastatin Calcium (Lipitor) 10 mg HS PO 05/15/21 21:00 05/15/21 21:02 Ceftriaxone Sodium (Rocephin) 1 gm Q24H IVP 05/15/21 20:00 05/15/21 21:02 Azithromycin 250 mg/Sodium Chloride 250 ml @ 250 mls/hr Q24H IV 05/15/21 20:00 05/15/21 21:03 Iohexol (Omnipaque 300 Mg/ml) 60 ml 1X ONCE IV 05/15/21 21:30 05/15/21 21:31 DC 05/15/21 21:51 Dexmedetomidine HCl 400 mcg/ Sodium Chloride 100 ml @ 4.295 mls/ hr CONT PRN IV PER PROTOCOL 05/15/21 22:00 05/15/21 22:25 ALLERGIES ALLERGIES: Coded Allergies: No Known Drug Allergies (Unverified , 04/08/15) ROS Review of System 14 point ROS conducted with pertinent positives noted above in HPI PHYSICAL EXAM General: Alert, Oriented X3, Cooperative, mild distress HEENT: Atraumatic, Mucous membr. moist/pink Lungs: Other (crackles ) Heart: Regular rate Abdomen: Soft, No tenderness Extremities: Other (trace bilateral LE edema ) Skin: No breakdown, No significant lesion Neuro: Normal speech, Sensation intact Psych/Mental Status: Mental status NL, Mood NL MUSCULOSKELETAL: Osteoarthritic changes both hands VITALS/I&O VITALS/I&O: Vital Signs Date Time Temp Pulse Resp B/P (MAP) Pulse Ox O2 Delivery O2 Flow Rate FiO2 05/16/21 06:00 93 18 99/62 (74) 100 BiPAP/CPAP 05/16/21 04:00 97.7 97.7 05/15/21 21:35 40.0 I & O 05/15/21 05/15/21 05/16/21 15:00 23:00 07:00 Output Total 400 ml 200 ml Balance -400 ml -200 ml LABS Lab: Laboratory Tests Test 05/15/21 18:10 05/15/21 21:35 05/16/21 04:20 White Blood Count 14.4 x10^3/uL (4.0-11.0) H 14.4 x10^3/uL (4.0-11.0) H Red Blood Count 3.37 x10^6/uL (4.30-5.70) L 3.14 x10^6/uL (4.30-5.70) L Hemoglobin 9.0 g/dL (13.0-17.5) L 8.5 g/dL (13.0-17.5) L Hematocrit 29.2 % (39.0-53.0) L 27.0 % (39.0-53.0) L Mean Corpuscular Volume 87 fL (79-100) 86 fL (79-100) Mean Corpuscular Hemoglobin 27 pg (25-35) 27 pg (25-35) Mean Corpuscular Hemoglobin Concent 31 g/dL (31-37) 31 g/dL (31-37) Red Cell Distribution Width 16.4 % (11.5-14.5) H 16.7 % (11.5-14.5) H Platelet Count 356 x10^3/uL (140-400) 306 x10^3/uL (140-400) Neutrophils (%) (Auto) 84 % (31-73) H 84 % (31-73) H Lymphocytes (%) (Auto) 6 % (24-48) L 6 % (24-48) L Monocytes (%) (Auto) 10 % (0-9) H 10 % (0-9) H Eosinophils (%) (Auto) 0 % (0-3) 0 % (0-3) Basophils (%) (Auto) 0 % (0-3) 1 % (0-3) Neutrophils # (Auto) 12.1 x10^3/uL (1.8-7.7) H 12.1 x10^3/uL (1.8-7.7) H Lymphocytes # (Auto) 0.9 x10^3/uL (1.0-4.8) L 0.8 x10^3/uL (1.0-4.8) L Monocytes # (Auto) 1.4 x10^3/uL (0.0-1.1) H 1.4 x10^3/uL (0.0-1.1) H Eosinophils # (Auto) 0.1 x10^3/uL (0.0-0.7) 0.0 x10^3/uL (0.0-0.7) Basophils # (Auto) 0.0 x10^3/uL (0.0-0.2) 0.1 x10^3/uL (0.0-0.2) Sodium Level 135 mmol/L (136-145) L 137 mmol/L (136-145) Potassium Level 3.5 mmol/L (3.5-5.1) 4.2 mmol/L (3.5-5.1) Chloride Level 99 mmol/L (98-107) 100 mmol/L (98-107) Carbon Dioxide Level 21 mmol/L (21-32) 23 mmol/L (21-32) Anion Gap 15 (6-14) H 14 (6-14) Blood Urea Nitrogen 32 mg/dL (8-26) H 36 mg/dL (8-26) H Creatinine 2.0 mg/dL (0.7-1.3) H 2.2 mg/dL (0.7-1.3) H Estimated GFR (Cockcroft-Gault) 32.9 29.5 BUN/Creatinine Ratio 16 (6-20) 16 (6-20) Glucose Level 137 mg/dL (70-99) H 104 mg/dL (70-99) H Calcium Level 8.0 mg/dL (8.5-10.1) L 7.7 mg/dL (8.5-10.1) L Total Bilirubin 0.6 mg/dL (0.2-1.0) 0.4 mg/dL (0.2-1.0) Aspartate Amino Transferase (AST) 65 U/L (15-37) H 91 U/L (15-37) H Alanine Aminotransferase (ALT) 42 U/L (16-63) 42 U/L (16-63) Alkaline Phosphatase 67 U/L (46-116) 65 U/L (46-116) Troponin I High Sensitivity 6592 ng/L (4-75) H 71527 ng/L (4-75) H Total Protein 7.7 g/dL (6.4-8.2) 6.7 g/dL (6.4-8.2) Albumin 3.2 g/dL (3.4-5.0) L 2.9 g/dL (3.4-5.0) L Albumin/Globulin Ratio 0.7 (1.0-1.7) L 0.8 (1.0-1.7) L Triglycerides Level 58 mg/dL (0-150) Cholesterol Level 98 mg/dL (0-200) LDL Cholesterol, Calculated 47 mg/dL (0-100) VLDL Cholesterol, Calculated 12 mg/dL (0-40) Non-HDL Cholesterol Calculated 59 mg/dL (0-129) HDL Cholesterol 39 mg/dL (40-60) L Cholesterol/HDL Ratio 2.5 Thyroid Stimulating Hormone (TSH) 1.070 uIU/mL (0.358-3.74) O2 Saturation 93 % (92-99) Arterial Blood pH 7.39 (7.35-7.45) Arterial Blood pCO2 at Patient Temp 32 mmHg (35-46) L Arterial Blood pO2 at Patient Temp 74 mmHg (65-108) Arterial Blood HCO3 19 mmol/L (21-28) L Arterial Blood Base Excess -5 mmol/L (-3-3) L Oxyhemoglobin 92.7 % Methemoglobin 0.0 % (0.0-1.9) Carbon Monoxide, Quantitative 0.0 % (0.0-1.9) FiO2 40l 100% vapotherm Laboratory Tests 05/15/21 18:10 05/16/21 04:20 Laboratory Tests 05/15/21 18:10 05/16/21 04:20 ECHOCARDIOGRAM ECHOCARDIOGRAM <Conclusion> The left ventricle is normal size. The left ventricular systolic function is normal and the ejection fraction is within normal range. Estimated ejection fraction 55-60%. There is borderline to mild concentric left ventricular hypertrophy. Doppler and Color Flow revealed no significant aortic regurgitation. There is no significant aortic valvular stenosis. Doppler and Color-flow revealed mild mitral regurgitation. Doppler and Color Flow revealed no tricuspid valve regurgitation noted. The aortic root is mildly enlarged. DATE: 05/18/20 [id number] 0 ASSESSMENT/PLAN ASSESSMENT/PLAN 1. Acute respiratory failure secondary to CHF 2. Acute on chronic CHF with suspected systolic dysfunction 3. NSTEMI; trop highest 16,603. EKG noted with anterolateral ST depression and lateral t-wave inversion, which was not present on prior EKG from 2019 4. Chest pressure with typical features; intermittent x2 week 5. CAD; CT chest with coronary artery calcifications 6. Anemia; hgb 6.9 upon arrival. reports of intermittent hematochezia x2 months . s/p 2 units PRBC's 7. ASHA; new finding. ? hypoperfusion 8. H/o hypertension; presently low end. 9. Hyperlipidemia; statin 10. Carotid artery disease 11. Tobaccoism; discussed/encouraged cessation Recommendations Echo now If significant LV dysfunction is noted, will start milrinone and Lasix gtt Will hold off on heparin for now given bleeding, anemia Will need right and left heart catheterization given symptomatology and risk factors in the setting of NSTEMI. R/b/a discussed with patient and he is agreeable. Hold lisinopril Keep NPO Supportive care Further pending above. WES JEFF MD 05/17/21 0716: CARDIAC CONSULT ASSESSMENT/PLAN ASSESSMENT/PLAN Late entry for 05/16/2021 Patient seen and examined. Agree with above nurse practitioner note. 75-year-old male well-known to our office presents in acute decompensated heart failure. Patient taken to the catheterization laboratory found to have critical two-vessel disease. He is in cardiogenic shock and volume overloaded. He has been started on appropriate medical therapy. Critical care time greater than 35 minutes exclusive of procedures. NEEMA ALVAREZ APRN May 16, 2021 09:45 WES JEFF MD May 17, 2021 07:16
[2021-05-16] MEDS: PANTOPRAZOLE IV PUSH 40 MG VIAL. IVP SCH (10:44)
[2021-05-16] MEDS ORDERED: LIDOCAINE 1% PF 2 ML VIAL. ONE (12:29)
--- NOTE | 2021-05-16 12:38 | PDOC ---
[employer] PROGRESS NOTE Date of Service DOS: DATE: 05/16/21 TIME: 12:36 Chief Complaint Chief Complaint Acute [place] CAD Hypertension Respiratory failure GI bleed Thrombocytopenia Fluid overload Acute on chronic systolic diastolic heart failure ASHA History of Present Illness History of Present Illness 05/17/2019 Patient seen and examined in the ICU He is scheduled to go to cardiac cath later today Discussed with RN Discussed with case management Chart review Vitals/I&O Vitals/I&O: Vital Signs Date Time Temp Pulse Resp B/P (MAP) Pulse Ox O2 Delivery O2 Flow Rate FiO2 05/16/21 12:00 Vapotherm 05/16/21 11:00 94 20 97/54 (68) 100 05/16/21 08:00 98.4 98.4 05/15/21 21:35 40.0 I & O 05/15/21 05/15/21 05/16/21 15:00 23:00 07:00 Output Total 400 ml 200 ml Balance -400 ml -200 ml Labs Labs: Laboratory Tests Test 05/15/21 18:10 05/15/21 21:35 05/16/21 04:20 White Blood Count 14.4 x10^3/uL (4.0-11.0) 14.4 x10^3/uL (4.0-11.0) Red Blood Count 3.37 x10^6/uL (4.30-5.70) 3.14 x10^6/uL (4.30-5.70) Hemoglobin 9.0 g/dL (13.0-17.5) 8.5 g/dL (13.0-17.5) Hematocrit 29.2 % (39.0-53.0) 27.0 % (39.0-53.0) Mean Corpuscular Volume 87 fL (79-100) 86 fL (79-100) Mean Corpuscular Hemoglobin 27 pg (25-35) 27 pg (25-35) Mean Corpuscular Hemoglobin Concent 31 g/dL (31-37) 31 g/dL (31-37) Red Cell Distribution Width 16.4 % (11.5-14.5) 16.7 % (11.5-14.5) Platelet Count 356 x10^3/uL (140-400) 306 x10^3/uL (140-400) Neutrophils (%) (Auto) 84 % (31-73) 84 % (31-73) Lymphocytes (%) (Auto) 6 % (24-48) 6 % (24-48) Monocytes (%) (Auto) 10 % (0-9) 10 % (0-9) Eosinophils (%) (Auto) 0 % (0-3) 0 % (0-3) Basophils (%) (Auto) 0 % (0-3) 1 % (0-3) Neutrophils # (Auto) 12.1 x10^3/uL (1.8-7.7) 12.1 x10^3/uL (1.8-7.7) Lymphocytes # (Auto) 0.9 x10^3/uL (1.0-4.8) 0.8 x10^3/uL (1.0-4.8) Monocytes # (Auto) 1.4 x10^3/uL (0.0-1.1) 1.4 x10^3/uL (0.0-1.1) Eosinophils # (Auto) 0.1 x10^3/uL (0.0-0.7) 0.0 x10^3/uL (0.0-0.7) Basophils # (Auto) 0.0 x10^3/uL (0.0-0.2) 0.1 x10^3/uL (0.0-0.2) Sodium Level 135 mmol/L (136-145) 137 mmol/L (136-145) Potassium Level 3.5 mmol/L (3.5-5.1) 4.2 mmol/L (3.5-5.1) Chloride Level 99 mmol/L (98-107) 100 mmol/L (98-107) Carbon Dioxide Level 21 mmol/L (21-32) 23 mmol/L (21-32) Anion Gap 15 (6-14) 14 (6-14) Blood Urea Nitrogen 32 mg/dL (8-26) 36 mg/dL (8-26) Creatinine 2.0 mg/dL (0.7-1.3) 2.2 mg/dL (0.7-1.3) Estimated GFR (Cockcroft-Gault) 32.9 29.5 BUN/Creatinine Ratio 16 (6-20) 16 (6-20) Glucose Level 137 mg/dL (70-99) 104 mg/dL (70-99) Calcium Level 8.0 mg/dL (8.5-10.1) 7.7 mg/dL (8.5-10.1) Total Bilirubin 0.6 mg/dL (0.2-1.0) 0.4 mg/dL (0.2-1.0) Aspartate Amino Transf (AST/SGOT) 65 U/L (15-37) 91 U/L (15-37) Alanine Aminotransferase (ALT/SGPT) 42 U/L (16-63) 42 U/L (16-63) Alkaline Phosphatase 67 U/L (46-116) 65 U/L (46-116) Troponin I High Sensitivity 6592 ng/L (4-75) 65791 ng/L (4-75) Total Protein 7.7 g/dL (6.4-8.2) 6.7 g/dL (6.4-8.2) Albumin 3.2 g/dL (3.4-5.0) 2.9 g/dL (3.4-5.0) Albumin/Globulin Ratio 0.7 (1.0-1.7) 0.8 (1.0-1.7) Triglycerides Level 58 mg/dL (0-150) Cholesterol Level 98 mg/dL (0-200) LDL Cholesterol, Calculated 47 mg/dL (0-100) VLDL Cholesterol, Calculated 12 mg/dL (0-40) Non-HDL Cholesterol Calculated 59 mg/dL (0-129) HDL Cholesterol 39 mg/dL (40-60) Cholesterol/HDL Ratio 2.5 Thyroid Stimulating Hormone (TSH) 1.070 uIU/mL (0.358-3.74) O2 Saturation 93 % (92-99) Arterial Blood pH 7.39 (7.35-7.45) Arterial Blood pCO2 at Patient Temp 32 mmHg (35-46) Arterial Blood pO2 at Patient Temp 74 mmHg (65-108) Arterial Blood HCO3 19 mmol/L (21-28) Arterial Blood Base Excess -5 mmol/L (-3-3) Oxyhemoglobin 92.7 % Methemoglobin 0.0 % (0.0-1.9) Carbon Monoxide, Quantitative 0.0 % (0.0-1.9) FiO2 40l 100% vapotherm Iron Level 13 ug/dL (65-175) Total Iron Binding Capacity 333 ug/dL (250-450) Iron Saturation 4 % (15-34) Assessment and Plan Assessmemt and Plan Acute [place] CAD Hypertension Respiratory failure GI bleed Thrombocytopenia Fluid overload Acute on chronic systolic diastolic heart failure ASHA Plan He is going to cardiac cath later today Continue ICU monitoring Serial enzymes Serial EKGs Home meds DVT prophylaxis Full code IV Lasix Trend lab Appreciate subspecialist input (pulmonary cardiology nephrology Long-term prognosis guarded Comment Review of Relevant I have reviewed the following items angelica (where applicable) has been applied. Medications: Current Medications Medications (Trade) Dose Ordered Sig/Layne Route PRN Reason Start Time Stop Time Status Last Admin Dose Admin Furosemide (Lasix) 80 mg 1X ONCE IVP 05/15/21 17:00 05/15/21 17:01 DC 05/15/21 17:00 Pantoprazole Sodium (PROTONIX VIAL for IV PUSH) 40 mg DAILYAC IVP 05/15/21 18:00 05/16/21 10:44 Atorvastatin Calcium (Lipitor) 10 mg HS PO 05/15/21 21:00 05/15/21 21:02 Ceftriaxone Sodium (Rocephin) 1 gm Q24H IVP 05/15/21 20:00 05/15/21 21:02 Azithromycin 250 mg/Sodium Chloride 250 ml @ 250 mls/hr Q24H IV 05/15/21 20:00 05/15/21 21:03 Iohexol (Omnipaque 300 Mg/ml) 60 ml 1X ONCE IV 05/15/21 21:30 05/15/21 21:31 DC 05/15/21 21:51 Dexmedetomidine HCl 400 mcg/ Sodium Chloride 100 ml @ 4.295 mls/ hr CONT PRN IV PER PROTOCOL 05/15/21 22:00 05/15/21 22:25 Justifications for Admission Other Justification LUPE APPLE III DO May 16, 2021 12:38
[2021-05-16] MEDS ORDERED: MIDAZOLAM HCL/PF 2 MG/2 ML VIAL. ONE ×2 (12:50→13:38)
[2021-05-16] MEDS ORDERED: fentaNYL PF VIAL 100 MCG/2 ML VIAL ONE (12:50)
[2021-05-16] MEDS ORDERED: HEPARIN for IV BOLUS 10,000 UNIT/10 ML VIAL. ONE (12:50)
[2021-05-16] MEDS ORDERED: VERAPAMIL 5 MG/2 ML VIAL. ONE (12:50)
[2021-05-16] MEDS ORDERED: NITROGLYCERIN 200 MCG/2 ML SYRINGE FOR CATH/VASC LAB. ONE (12:50)
--- NOTE | 2021-05-16 13:15 | PDOC2 ---
CONSULT Date of Consult Date of Consult DATE: 05/16/21 TIME: 13:01 Reason for Consult Reason for Consult: ASHA Identification/Chief Complaint Chief Complaint Shortness of breath Source Source: Chart review, Patient History of Present Illness Reason for Visit: Patient is 75-year-old CM presented to [facility] due to 3 to 4 days history of worsening shortness of breath especially on exertion and bilateral lower extremity edema. In his usual state of health he can walk without shortness of breath but noted been worsening. He also reports having bright red blood per rectum off and on . He was anemic and did require blood transfusion. Also elevated troponin thought to be secondary to anemia. Eventually transferred here. On arrival here patient with very labored respirations on nasal cannula. Frequently Saying he could not breathe, appeared fluid overloaded. Recd 80 IV Lasix one-time. Started on BiPAP. Currently getting Echo cardiogram, appears to be having some shortness of breath. Denies any CP, No .N/V. No F/C. Denies any past history of Kidney related issues . Denies any urinary [id number] Troponins trending up. Cardiology consulted Holding off on heparin drip given GI bleed Past Medical History Cardiovascular: HTN, Hyperlipidemia, Other (carotid artery disease ) Musculoskeletal: Osteoarthritis Past Surgical History Past Surgical History: Total hip replacement (left ) Family History Family History: Heart Disease (father ), Hypertension Social History Quit ALCOHOL: occassional Drugs: None Lives: Alone Current Medications Current Medications Current Medications Furosemide (Lasix) 80 mg 1X ONCE IVP Last administered on 05/15/21at 17:00; Start 05/15/21 at 17:00; Stop 05/15/21 at 17:01; Status DC Ondansetron HCl (Zofran) 4 mg PRN Q6HRS PRN IVP NAUSEA/VOMITING; Start 05/15/21 at 17:00 Calcium Carbonate/ Glycine (Tums) 500 mg PRN Q3HRS PRN PO UPSET STOMACH; Start 05/15/21 at 17:00 Info (Non-Icu Electrolyte Protocol) 1 ea PRN DAILY PRN MC SEE COMMENTS; Start 05/15/21 at 17:00 Acetaminophen (Tylenol) 650 mg PRN Q6HRS PRN PO Headaches, Temp > 101.5F; Start 05/15/21 at 17:00 Senna/Docusate Sodium (Senna Plus) 1 tab BID PO ; Start 05/15/21 at 21:00 Pantoprazole Sodium (PROTONIX VIAL for IV PUSH) 40 mg DAILYAC IVP Last administered on 05/16/21at 10:44; Start 05/15/21 at 18:00 Atorvastatin Calcium (Lipitor) 10 mg HS PO Last administered on 05/15/21at 21:02; Start 05/15/21 at 21:00 Docusate Sodium (Colace) 100 mg BID PO ; Start 05/15/21 at 21:00 Lisinopril (Prinivil) 10 mg DAILY PO ; Start 05/16/21 at 09:00; Stop 05/16/21 at 10:07; Status DC Sterile Water (WATER for RESP) 2,000 ml CONT PRN INH VIA VAPOTHERM DEVICE; Start 05/15/21 at 17:15 Ceftriaxone Sodium (Rocephin) 1 gm Q24H IVP Last administered on 05/15/21at 21:02; Start 05/15/21 at 20:00 Azithromycin 250 mg/Sodium Chloride 250 ml @ 250 mls/hr Q24H IV Last administered on 05/15/21at 21:03; Start 05/15/21 at 20:00 Iohexol (Omnipaque 300 Mg/ml) 60 ml 1X ONCE IV Last administered on 05/15/21at 21:51; Start 05/15/21 at 21:30; Stop 05/15/21 at 21:31; Status DC Info (CONTRAST GIVEN -- Rx MONITORING) 1 each PRN DAILY PRN MC SEE COMMENTS; Start 05/15/21 at 21:30; Stop 05/17/21 at 21:29 Dexmedetomidine HCl 400 mcg/ Sodium Chloride 100 ml @ 4.295 mls/ hr CONT PRN IV PER PROTOCOL Last administered on 05/15/21at 22:25; Start 05/15/21 at 22:00 Sodium Chloride 500 ml @ 500 mls/hr 1X PRN PRN IV SEE COMMENTS; Start 05/15/21 at 22:00 Atropine Sulfate (ATROPINE 0.5mg SYRINGE) 0.5 mg PRN Q5MIN PRN IV SEE COMMENTS; Start 05/15/21 at 22:00 Norepinephrine Bitartrate 8 mg/ Dextrose 258 ml @ 16.622 mls/ hr CONT PRN IV PER PROTOCOL; Start 05/16/21 at 00:30 Perflutren Protein Type A Microsphe (Optison) 0.66 mg 1X ONCE IV ; Start 05/16/21 at 08:15; Stop 05/16/21 at 08:16; Status DC Lidocaine HCl (Xylocaine-Mpf 1% 2ml Vial) 2 ml STK-MED ONCE .ROUTE ; Start 05/16/21 at 12:29; Stop 05/16/21 at 12:29; Status DC Heparin Sodium/ Sodium Chloride 1,000 ml @ As Directed STK-MED ONCE .ROUTE ; Start 05/16/21 at 12:29; Stop 05/16/21 at 12:29; Status DC Fentanyl Citrate (Fentanyl 2ml Vial) 100 mcg STK-MED ONCE .ROUTE ; Start 05/16/21 at 12:50; Stop 05/16/21 at 12:50; Status DC Midazolam HCl (Versed) 2 mg STK-MED ONCE .ROUTE ; Start 05/16/21 at 12:50; Stop 05/16/21 at 12:50; Status DC Heparin Sodium (Porcine) (Heparin Sodium) 10,000 unit STK-MED ONCE .ROUTE ; Start 05/16/21 at 12:50; Stop 05/16/21 at 12:50; Status DC Verapamil HCl (Verapamil) 5 mg STK-MED ONCE .ROUTE ; Start 05/16/21 at 12:50; Stop 05/16/21 at 12:50; Status DC Nitroglycerin (Nitroglycerin) 200 mcg STK-MED ONCE .ROUTE ; Start 05/16/21 at 12:50; Stop 05/16/21 at 12:51; Status DC Active Scripts Active Reported Colace (Docusate Sodium) 100 Mg Capsule 1 Cap PO BID Coumadin (Warfarin Sodium) 3 Mg Tablet 1 Tab PO DAILY Ferrous Sulfate 325 Mg Tablet 325 Mg PO Next dose tomorrow 11/19/15 09 am. Viagra (Sildenafil Citrate) 100 Mg Tablet 100 Mg PO ONCE Resume prior to hospitalization. Atorvastatin Calcium 10 Mg Tablet 10 Mg PO HS Next dose tonight at bed time. Lisinopril 20 Mg Tablet 10 Mg PO DAILY Next dose tomorrow 11/19/15 at 9 am. Allergies Allergies: Coded Allergies: No Known Drug Allergies (Unverified , 04/08/15) ROS Review of System As per HPI, rest of the ROS is negative Physical Exam Physical Exam General Mild Resp distress. Propped up in bed HEEN OM moist, On O2 by NC Neck Supple Lungs Decreased at bases, Labored CV S1S2 Abd Soft, NT Ext No LE edema Neuro Grossly normal, Moving all extremities No Schroeder (Pt refused) , No CVA or SP tenderness Psych Cooperative Skin No Rash Vital Signs Vital Signs Date Time Temp Pulse Resp B/P (MAP) Pulse Ox O2 Delivery O2 Flow Rate FiO2 05/16/21 12:00 Vapotherm 05/16/21 11:00 94 20 97/54 (68) 100 05/16/21 08:00 98.4 98.4 05/15/21 21:35 40.0 Assessment & Plan ASHA - Cardiorenal ; Baseline Creat Normal 0.7 in 2019 (per [facility] records) , Patient refused Schroeder, Bladder scan earlier with 200 mls of Urine, Patient was able to Void . Repeat Bladder scan or Schroeder Symptoms of CHF at presentation, Lasix given . Had CT with IV contrast . Supportive care , Strict I/O, avoid Nephrotoxins. Discussed with patient Risk of JACLYN . Agree with cardiac Cath if Benefits out weigh risks. No IV hydration Currently 2/2 CHF- defer to cardiology Hypotension- BP low ; Hx of HTN Anemia-Hgb trended down to 6.9 POA .s/p 2 units PRBC's Acute respiratory failure secondary to CHF Acute on chronic CHF with suspected systolic dysfunction NSTEMI; trop 16,603. EKG with anterolateral ST depression and lateral t-wave inversion per Card Chest pressure POA CAD; CT chest with coronary artery calcifications Hematochezia- intermittent x2 months . Tobaccoism; discussed/encouraged cessation Labs Labs Laboratory Tests Test 05/15/21 18:10 05/15/21 21:35 05/16/21 04:20 White Blood Count 14.4 x10^3/uL (4.0-11.0) 14.4 x10^3/uL (4.0-11.0) Red Blood Count 3.37 x10^6/uL (4.30-5.70) 3.14 x10^6/uL (4.30-5.70) Hemoglobin 9.0 g/dL (13.0-17.5) 8.5 g/dL (13.0-17.5) Hematocrit 29.2 % (39.0-53.0) 27.0 % (39.0-53.0) Mean Corpuscular Volume 87 fL (79-100) 86 fL (79-100) Mean Corpuscular Hemoglobin 27 pg (25-35) 27 pg (25-35) Mean Corpuscular Hemoglobin Concent 31 g/dL (31-37) 31 g/dL (31-37) Red Cell Distribution Width 16.4 % (11.5-14.5) 16.7 % (11.5-14.5) Platelet Count 356 x10^3/uL (140-400) 306 x10^3/uL (140-400) Neutrophils (%) (Auto) 84 % (31-73) 84 % (31-73) Lymphocytes (%) (Auto) 6 % (24-48) 6 % (24-48) Monocytes (%) (Auto) 10 % (0-9) 10 % (0-9) Eosinophils (%) (Auto) 0 % (0-3) 0 % (0-3) Basophils (%) (Auto) 0 % (0-3) 1 % (0-3) Neutrophils # (Auto) 12.1 x10^3/uL (1.8-7.7) 12.1 x10^3/uL (1.8-7.7) Lymphocytes # (Auto) 0.9 x10^3/uL (1.0-4.8) 0.8 x10^3/uL (1.0-4.8) Monocytes # (Auto) 1.4 x10^3/uL (0.0-1.1) 1.4 x10^3/uL (0.0-1.1) Eosinophils # (Auto) 0.1 x10^3/uL (0.0-0.7) 0.0 x10^3/uL (0.0-0.7) Basophils # (Auto) 0.0 x10^3/uL (0.0-0.2) 0.1 x10^3/uL (0.0-0.2) Sodium Level 135 mmol/L (136-145) 137 mmol/L (136-145) Potassium Level 3.5 mmol/L (3.5-5.1) 4.2 mmol/L (3.5-5.1) Chloride Level 99 mmol/L (98-107) 100 mmol/L (98-107) Carbon Dioxide Level 21 mmol/L (21-32) 23 mmol/L (21-32) Anion Gap 15 (6-14) 14 (6-14) Blood Urea Nitrogen 32 mg/dL (8-26) 36 mg/dL (8-26) Creatinine 2.0 mg/dL (0.7-1.3) 2.2 mg/dL (0.7-1.3) Estimated GFR (Cockcroft-Gault) 32.9 29.5 BUN/Creatinine Ratio 16 (6-20) 16 (6-20) Glucose Level 137 mg/dL (70-99) 104 mg/dL (70-99) Calcium Level 8.0 mg/dL (8.5-10.1) 7.7 mg/dL (8.5-10.1) Total Bilirubin 0.6 mg/dL (0.2-1.0) 0.4 mg/dL (0.2-1.0) Aspartate Amino Transf (AST/SGOT) 65 U/L (15-37) 91 U/L (15-37) Alanine Aminotransferase (ALT/SGPT) 42 U/L (16-63) 42 U/L (16-63) Alkaline Phosphatase 67 U/L (46-116) 65 U/L (46-116) Troponin I High Sensitivity 6592 ng/L (4-75) 79994 ng/L (4-75) Total Protein 7.7 g/dL (6.4-8.2) 6.7 g/dL (6.4-8.2) Albumin 3.2 g/dL (3.4-5.0) 2.9 g/dL (3.4-5.0) Albumin/Globulin Ratio 0.7 (1.0-1.7) 0.8 (1.0-1.7) Triglycerides Level 58 mg/dL (0-150) Cholesterol Level 98 mg/dL (0-200) LDL Cholesterol, Calculated 47 mg/dL (0-100) VLDL Cholesterol, Calculated 12 mg/dL (0-40) Non-HDL Cholesterol Calculated 59 mg/dL (0-129) HDL Cholesterol 39 mg/dL (40-60) Cholesterol/HDL Ratio 2.5 Thyroid Stimulating Hormone (TSH) 1.070 uIU/mL (0.358-3.74) O2 Saturation 93 % (92-99) Arterial Blood pH 7.39 (7.35-7.45) Arterial Blood pCO2 at Patient Temp 32 mmHg (35-46) Arterial Blood pO2 at Patient Temp 74 mmHg (65-108) Arterial Blood HCO3 19 mmol/L (21-28) Arterial Blood Base Excess -5 mmol/L (-3-3) Oxyhemoglobin 92.7 % Methemoglobin 0.0 % (0.0-1.9) Carbon Monoxide, Quantitative 0.0 % (0.0-1.9) FiO2 40l 100% vapotherm Iron Level 13 ug/dL (65-175) Total Iron Binding Capacity 333 ug/dL (250-450) Iron Saturation 4 % (15-34) Vitamin B12 Level 518 pg/mL (247-911) Laboratory Tests Test 05/15/21 18:10 05/15/21 21:35 05/16/21 04:20 White Blood Count 14.4 x10^3/uL (4.0-11.0) 14.4 x10^3/uL (4.0-11.0) Red Blood Count 3.37 x10^6/uL (4.30-5.70) 3.14 x10^6/uL (4.30-5.70) Hemoglobin 9.0 g/dL (13.0-17.5) 8.5 g/dL (13.0-17.5) Hematocrit 29.2 % (39.0-53.0) 27.0 % (39.0-53.0) Mean Corpuscular Volume 87 fL (79-100) 86 fL (79-100) Mean Corpuscular Hemoglobin 27 pg (25-35) 27 pg (25-35) Mean Corpuscular Hemoglobin Concent 31 g/dL (31-37) 31 g/dL (31-37) Red Cell Distribution Width 16.4 % (11.5-14.5) 16.7 % (11.5-14.5) Platelet Count 356 x10^3/uL (140-400) 306 x10^3/uL (140-400) Neutrophils (%) (Auto) 84 % (31-73) 84 % (31-73) Lymphocytes (%) (Auto) 6 % (24-48) 6 % (24-48) Monocytes (%) (Auto) 10 % (0-9) 10 % (0-9) Eosinophils (%) (Auto) 0 % (0-3) 0 % (0-3) Basophils (%) (Auto) 0 % (0-3) 1 % (0-3) Neutrophils # (Auto) 12.1 x10^3/uL (1.8-7.7) 12.1 x10^3/uL (1.8-7.7) Lymphocytes # (Auto) 0.9 x10^3/uL (1.0-4.8) 0.8 x10^3/uL (1.0-4.8) Monocytes # (Auto) 1.4 x10^3/uL (0.0-1.1) 1.4 x10^3/uL (0.0-1.1) Eosinophils # (Auto) 0.1 x10^3/uL (0.0-0.7) 0.0 x10^3/uL (0.0-0.7) Basophils # (Auto) 0.0 x10^3/uL (0.0-0.2) 0.1 x10^3/uL (0.0-0.2) Sodium Level 135 mmol/L (136-145) 137 mmol/L (136-145) Potassium Level 3.5 mmol/L (3.5-5.1) 4.2 mmol/L (3.5-5.1) Chloride Level 99 mmol/L (98-107) 100 mmol/L (98-107) Carbon Dioxide Level 21 mmol/L (21-32) 23 mmol/L (21-32) Anion Gap 15 (6-14) 14 (6-14) Blood Urea Nitrogen 32 mg/dL (8-26) 36 mg/dL (8-26) Creatinine 2.0 mg/dL (0.7-1.3) 2.2 mg/dL (0.7-1.3) Estimated GFR (Cockcroft-Gault) 32.9 29.5 BUN/Creatinine Ratio 16 (6-20) 16 (6-20) Glucose Level 137 mg/dL (70-99) 104 mg/dL (70-99) Calcium Level 8.0 mg/dL (8.5-10.1) 7.7 mg/dL (8.5-10.1) Total Bilirubin 0.6 mg/dL (0.2-1.0) 0.4 mg/dL (0.2-1.0) Aspartate Amino Transf (AST/SGOT) 65 U/L (15-37) 91 U/L (15-37) Alanine Aminotransferase (ALT/SGPT) 42 U/L (16-63) 42 U/L (16-63) Alkaline Phosphatase 67 U/L (46-116) 65 U/L (46-116) Troponin I High Sensitivity 6592 ng/L (4-75) 33062 ng/L (4-75) Total Protein 7.7 g/dL (6.4-8.2) 6.7 g/dL (6.4-8.2) Albumin 3.2 g/dL (3.4-5.0) 2.9 g/dL (3.4-5.0) Albumin/Globulin Ratio 0.7 (1.0-1.7) 0.8 (1.0-1.7) Triglycerides Level 58 mg/dL (0-150) Cholesterol Level 98 mg/dL (0-200) LDL Cholesterol, Calculated 47 mg/dL (0-100) VLDL Cholesterol, Calculated 12 mg/dL (0-40) Non-HDL Cholesterol Calculated 59 mg/dL (0-129) HDL Cholesterol 39 mg/dL (40-60) Cholesterol/HDL Ratio 2.5 Thyroid Stimulating Hormone (TSH) 1.070 uIU/mL (0.358-3.74) O2 Saturation 93 % (92-99) Arterial Blood pH 7.39 (7.35-7.45) Arterial Blood pCO2 at Patient Temp 32 mmHg (35-46) Arterial Blood pO2 at Patient Temp 74 mmHg (65-108) Arterial Blood HCO3 19 mmol/L (21-28) Arterial Blood Base Excess -5 mmol/L (-3-3) Oxyhemoglobin 92.7 % Methemoglobin 0.0 % (0.0-1.9) Carbon Monoxide, Quantitative 0.0 % (0.0-1.9) FiO2 40l 100% vapotherm Iron Level 13 ug/dL (65-175) Total Iron Binding Capacity 333 ug/dL (250-450) Iron Saturation 4 % (15-34) Vitamin B12 Level 518 pg/mL (247-911) Review All relevant outside records, renal labs, imaging studies, telemetry/EKG's were reviewed. Images Images EXAM: CT CHEST WITH CONTRAST HISTORY: Shortness of breath on vapotherm. Emphysema, pneumonia. COMPARISON: None available TECHNIQUE: Helical CT of the chest performed after administration of 60 mL Omnipaque 300 intravenous contrast. Coronal and sagittal reformats were obtained. One or more of the following individualized dose reduction techniques were utilized for this examination: 1. Automated exposure control 2. Adjustment of the mA and/or kV according to patient size 3. Use of iterative reconstruction technique. FINDINGS: Thyroid gland and thoracic inlet: Normal. Heart and great vessels: Heart is mildly enlarged. No pericardial effusion. Thoracic aorta is normal in caliber. There are coronary artery calcifications. Mediastinum and ant: Small mediastinal and hilar lymph nodes, likely reactive. Lungs and pleura: There are small bilateral pleural effusions with adjacent consolidative and groundglass opacities in the posterior lower lobes. There is diffuse interlobular septal thickening. Mild groundglass and consolidative opacities in the posterior upper lobes. Motion artifact limits evaluation of the apices. Chest wall and axillae: No axillary lymphadenopathy. Upper abdomen: Probable sludge in the gallbladder. Upper abdomen is otherwise unremarkable. Bones: No acute osseous abnormality. IMPRESSION: 1. Diffuse interlobular septal thickening with dependent opacities, suspicious for mild pulmonary edema. Superimposed pneumonia is not excluded in the lower lobes. 2. Small pleural effusions. 3. Mild cardiomegaly. Coronary calcifications. KERRY MAGAÑA MD May 16, 2021 13:15
[2021-05-16] MEDS ORDERED: IODIXANOL 320 MG/ML 100 ML VIAL. ONE (13:22)
[2021-05-16] MEDS ORDERED: LIDOCAINE 1% Multi-Dose 20 ML VIAL. ONE (13:33)
[2021-05-16 13:49] LABS: BASE EXCESS ABG -5 mmol/L (-3-3); FIO2 ABG 8 lpm nc; HCO3 ABG 19 mmol/L (21-28); PCO2 ABG 34 mmHg (35-46); PO2 ABG 59 mmHg (65-108); SAT O2 ABG 86 % (92-99)
[2021-05-16] MEDS ORDERED: LIDOCAINE 1% PF 2 ML VIAL. INJ ONE (14:00)
[2021-05-16] MEDS ORDERED: HEPARIN for IV BOLUS 10,000 UNIT/10 ML VIAL. IART ONE (14:00)
[2021-05-16] MEDS ORDERED: LIDOCAINE 1% Multi-Dose 20 ML VIAL. INJ ONE (14:00)
[2021-05-16] MEDS ORDERED: IODIXANOL 320 MG/ML 100 ML VIAL. IART ONE (14:00)
[2021-05-16] MEDS ORDERED: VERAPAMIL 5 MG/2 ML VIAL. IART ONE (14:00)
[2021-05-16] MEDS ORDERED: MIDAZOLAM HCL/PF 2 MG/2 ML VIAL. IV ONE (14:00)
[2021-05-16] MEDS ORDERED: NITROGLYCERIN 200 MCG/2 ML SYRINGE FOR CATH/VASC LAB. IART ONE (14:00)
[2021-05-16] MEDS ORDERED: fentaNYL PF VIAL 100 MCG/2 ML VIAL IV ONE (14:00)
[2021-05-16] MEDS ORDERED: FUROSEMIDE 40 MG/4 ML VIAL. IVP ONE (14:15)
[2021-05-16] MEDS ORDERED: CONTRAST GIVEN. MC PRN (14:15)
[2021-05-16] MEDS ORDERED: HEPARIN for IV BOLUS 10,000 UNIT/10 ML VIAL. IV PRN (14:15)
[2021-05-16] MEDS: FUROSEMIDE INJ 100 MG in IV NORMAL SALINE 100ML 100 ML IV SCH (14:55)
[2021-05-16] MEDS: MILRINONE 20MG/100ML PREMIX 100 ML IV PRN (14:57)
--- NOTE | 2021-05-16 15:11 | CARD ---
MR#: [id number] Date of Study: 05/16/2021 Ordering Physician: ORLANDO GONZALEZ, Referring Physician: ORLANDO GONZALEZ, Tech: Cesia Calderon [facility] APPROVED REPORT EXAM: Two-dimensional and M-mode echocardiogram with Doppler and color Doppler. Other Information Quality : AverageHR: 94bpm Rhythm : NSR INDICATION Dyspnea Chest Pain RISK FACTORS Hypertension 2D DIMENSIONS RVDd3.8 (2.9-3.5cm)Left Atrium(2D)4.5 (1.6-4.0cm) IVSd1.0 (0.7-1.1cm)Aortic Root(2D)3.7 (2.0-3.7cm) LVDd5.3 (3.9-5.9cm)LVOT Diameter2.1 (1.8-2.4cm) PWd1.0 (0.7-1.1cm)LVDs4.7 (2.5-4.0cm) FS (%) 10.1 %SV29.2 ml LVEF(%)21.9 (>50%) Aortic Valve AoV Peak Axel.120.9cm/sAoV VTI19.4cm AO Peak GR.5.8mmHgLVOT Peak Axel.83.4cm/s AO Mean GR.3mmHgAVA (VMAX)2.37cm2 Pulmonary Valve PV Peak Cvxzcmux58.3cm/s LEFT VENTRICLE The left ventricle is normal size. There is normal left ventricular wall thickness. Severe hypokinesi s of mid to distal anterior and anteroseptal bryson and apical wall. The ejection fraction is estimate d at 25%. RIGHT VENTRICLE The right ventricle is normal size. There is normal right ventricular wall thickness. Systolic functi on is mildly reduced. ATRIA The left atrium size is normal. The right atrium size is normal. The interatrial septum is intact wit h no evidence for an atrial septal defect or patent foramen ovale as noted on 2-D or Doppler imaging. AORTIC VALVE A bicuspid aortic valve cannot be excluded. Doppler and Color Flow revealed trace aortic regurgitatio n. There is no significant aortic valvular stenosis. MITRAL VALVE The mitral valve is normal in structure and function. There is no evidence of mitral valve prolapse. There is no mitral valve stenosis. Doppler and Color-flow revealed moderate mitral regurgitation. TRICUSPID VALVE The tricuspid valve is normal in structure and function. Doppler and Color Flow revealed trace tricus pid valve regurgitation. There is no tricuspid valve stenosis. PULMONIC VALVE Doppler and Color Flow revealed no pulmonic valvular regurgitation. GREAT VESSELS The aortic root is mildly enlarged. The ascending aorta is Mildly dilated. The IVC is dilated and col lapses <50% with inspiration. PERICARDIAL EFFUSION There is no evidence of significant pericardial effusion. Critical Notification Critical Value: No <Conclusion> Severe hypokinesis of mid to distal anterior and anteroseptal bryson and apical wall. The ejection fraction is estimated at 25%. Doppler and Color-flow revealed moderate mitral regurgitation. There is no evidence of significant pericardial effusion. Signed by : Dickson Morataya, Electronically Approved : 05/16/2021 15:11:23
[2021-05-16] MEDS: HEPARIN 25,000UTS/250ML PREMIX 250 ML IV PRN (16:20)
[2021-05-16] MEDS: AZITHROMYCIN 250 MG in IV NORMAL SALINE 250ML 250 ML IV SCH (20:47)
[2021-05-16] MEDS: cefTRIAXone IV Push 1 GM VIAL. IVP SCH (20:47)
[2021-05-16] MEDS: ATORVASTATIN CALCIUM 10 MG TABLET. PO SCH (21:34)
[2021-05-17] VITALS (23 sets, daily range): BP systolic 79–129; BP diastolic 36–66
[2021-05-17 05:53] LABS: ALBUMIN 2.7 g/dL (3.4-5.0); CALCIUM 6.9 mg/dL (8.5-10.1); CREATININE 1.5 mg/dL (0.7-1.3); GFR 45.9
[2021-05-17 05:56] LABS: HEMATOCRIT 26.5 % (39.0-53.0); HEMOGLOBIN 8.1 g/dL (13.0-17.5); RED BLOOD COUNT 3.09 x10^6/uL (4.30-5.70); RED CELL DISTRIBUTION WIDTH 16.8 % (11.5-14.5); WHITE BLOOD COUNT 12.5 x10^3/uL (4.0-11.0)
[2021-05-17 05:58] LABS: POTASSIUM 2.7 mmol/L (3.5-5.1)
[2021-05-17] MEDS ORDERED: POTASSIUM CHLORIDE 20 MEQ TABLET.ER. PO SCH (06:00)
--- NOTE | 2021-05-17 06:12 | CONS ---
DATE OF CONSULTATION: 05/16/2021 ATTENDING PHYSICIAN: Lamberto Perez MD REASON FOR CONSULTATION: The patient is seen in pulmonary consultation at the request of Dr. Perez for abnormal x-ray, hypoxemia, respiratory failure requiring noninvasive ventilation. HISTORY OF PRESENT ILLNESS: The patient is a 75-year-old with a history of tobacco use for 55 years. He states he smoked at the day of admission, presented to [facility] in [place] with a 3-4 day history of shortness of breath, bilateral lower extremity edema. He states that over the last week or so, he was experiencing some chest discomfort. He finally came into the Emergency Room. He was given some IV Lasix. Chest x-ray and CT compatible with pulmonary edema. There were small bilateral effusions. I was asked to see him in consultation. The patient initially was very tachypneic. He was started on BiPAP. He was also very anxious. He was admitted to the intensive care unit. He was started on Precedex drip. Levophed was started for hypotension. He is currently scheduled to undergo cardiac catheterization sometime this morning. He denies any current chest pain, no syncope or near syncopal episode. Denies hemoptysis. PAST MEDICAL HISTORY: Coronary artery disease, hypertension, COPD, unknown ____, tobacco dependent. ALLERGIES: CODEINE. FAMILY HISTORY: Coronary artery disease. Father suffered a myocardial infarction. SOCIAL HISTORY: He worked in the army, recently retired from [employer]. REVIEW OF SYSTEMS: As indicated above, otherwise other systems were reviewed and negative. CONSTITUTIONAL: No fever or chills. EYES: No change in visual acuity. HENT: No nasal congestion or sore throat. PULMONARY: As indicated above. GASTROINTESTINAL: No nausea, vomiting, diarrhea. GENITOURINARY: No dysuria or frequency. MUSCULOSKELETAL: No localized muscle aches or joint pains. SKIN: No new skin rashes. NEUROLOGIC: No headaches, diplopia or blurred vision. PHYSICAL EXAMINATION: VITAL SIGNS: Stable. O2 saturation was greater than 92%, currently on nasal cannula oxygen. HEENT: Eyes: The sclerae were nonicteric. NECK: Jugular venous distention was not elevated. No lymphadenopathy. CHEST: Full expansion. LUNGS: Adequate flow with crackles in the bases. No wheezes. CARDIOVASCULAR: Regular rate and rhythm with S1, S2, no S3. ABDOMEN: Soft. EXTREMITIES: No clubbing, cyanosis. Minimal edema. NEUROLOGIC: The patient was awake, alert, following commands. A detailed neuro exam was not performed. LABORATORY DATA: Arterial blood gas earlier, pH of 7.39, PaCO2 of 32, pO2 of 74 on Vapotherm 40 liters, 100% FiO2. White count was elevated. Hemoglobin and hematocrit chronically low. Electrolytes were noted. BUN is elevated, creatinine was elevated. Troponin was elevated. Chest x-ray and CT as indicated above, bilateral interstitial opacities compatible with pulmonary edema. There are small bilateral effusions and cardiomegaly. IMPRESSION: 1. Acute hypoxemic respiratory failure secondary to acute systolic heart failure. 2. Chronic obstructive pulmonary disease with exacerbation. 3. Hypertension. 4. Tobacco dependent. 5. Non-ST segment elevation myocardial infarction. 6. Acute blood loss anemia. Hemoglobin is 6.9 upon arrival, status post transfusion. 7. Acute kidney injury. 8. Hypotension, suspect hypovolemia, possibly cardiogenic shock. PLAN: 1. The patient is to undergo cardiac catheterization. 2. Continue to diurese per Cardiology. 3. Monitor H and H. 4. GI workup for acute blood loss anemia. 5. Outpatient pulmonary function testing. 6. Repeat CT chest in 6 months. I do appreciate the privilege in sharing in the patient's care. Total cumulative critical care time of 40 minutes. TEDDY/CINDY/ERNESTINE DR: TEDDY/milton TID: [id number]
[2021-05-17] MEDS ORDERED: POTASSIUM BICARB 20 MEQ EFFERVESCENT TABLET. PEG ONE (06:30)
--- NOTE | 2021-05-17 07:39 | CARD ---
MR#: [id number] Date of Study: 05/16/2021 Ordering Physician: GERRI TORRES, Referring Physician: GERRI TORRES, Tech: RT Ambika(R)() APPROVED REPORT Technologist: Becca Philippe RT(R)() Nurse: No Dos Santos RN Procedure(s) performed: Fluoro time: 3.9 min Dose: 43 Gycm2 Contrast: 38ccs Mod Sed:67 MIN LHC, coronary angiography, RHC HISTORY The patient is a 75 year-old male with a history of : tobacco history() , hypertension, dyslipidemia. INDICATION The indication(s) include : non-STEMI . CS Clinical Frailty Scale [facility] Clinical Frailty Scale: Severely Frail Heart Failure Heart Failure: No If Yes, Newly Diagnosed: Yes If Yes, HF Type: Diastolic Systolic If Yes, NYHA Class: Class III CASE TECHNIQUE IV conscious sedation was used throughout procedure with appropriate monitoring and was performed in the presence of a registered nurse who was an independent trained observer other than the physician p erforming the procedure. During this case, Fluoroscopy and low osmolar contrast were used for imaging . Specimen(s) Removed: N/A Estimated Blood loss: 15 cc's. PROCEDURE NARRATIVE Clinical information: 75-year-old male presented to the hospital in setting of severe dyspnea on exertion and chest discomf ort. Patient had significant LV dysfunction on echocardiogram and therefore was taken to the cathete rization laboratory for further evaluation and treatment. Procedure details: After proper informed consent the right wrist and right neck were prepped and draped in usual sterile fashion. Under 1% lidocaine local anesthesia a 6 Singaporean sheath was placed in the right radial arter y and a 8 Singaporean sheath was placed in the right internal jugular vein via ultrasound guidance. A 7.5 Singaporean PA catheter was then advanced to the right heart chambers and pressures and saturations were obtained. Diagnostic angiography was then performed with a 6 Singaporean TIG catheter and a LVEDP wa s also measured and a pullback was performed. At case completion the arterial catheter and sheath were removed and hemostasis was achieved via a [place] radial band. The right neck sheath was sutured in place and the [place] catheter was left in place for hemodynamic monitoring in the ICU. No acute complications. Findings: Aorta 90/60 LVEDP 35 mmHg No LV to aortic pullback gradient Right heart catheterization: RA 15 mmHg RV 70/11/15 PA 65/30/45 Wedge 33 mmHg Cardiac output 4.2 L/min, cardiac index 2.1 PA saturation 48% FA saturation 88% on 10 L nasal cannula Coronary angiography: Left main is a large caliber calcified vessel with a distal 50% stenosis LAD is a large caliber calcified vessel with an ostial 95% stenosis D1 is a moderate caliber vessel with normal angiographic appearance Left circumflex is a moderate to large caliber vessel with mild luminal irregularities OM1 is a moderate caliber vessel with mild luminal irregularities RCA is a moderate to large caliber dominant vessel with a mid subtotal occlusion with [id number] c ollaterals noted. Conclusion 1. Acute on chronic systolic and diastolic heart failure 2. Severe secondary pulmonary hypertension 3. Mildly decreased cardiac output 4. Acute respiratory failure secondary to cardiogenic shock and volume overload 5. Two-vessel coronary artery disease with left main involvement Recommendations 1. Initiate patient on Lasix drip, milrinone drip and heparin drip 2. After stabilization we will assess the patient's risk status for possible complex PCI versus bypa ss surgery. Signed by : Antwan Cruz, Electronically Approved : 05/17/2021 07:38:25
[2021-05-17] MEDS: DOCUSATE SODIUM 100 MG CAPSULE. PO SCH ×2 (07:59→20:53)
[2021-05-17] MEDS: FUROSEMIDE INJ 100 MG in IV NORMAL SALINE 100ML 100 ML IV SCH (08:00)
[2021-05-17] MEDS: PANTOPRAZOLE IV PUSH 40 MG VIAL. IVP SCH (08:00)
[2021-05-17] MEDS ORDERED: POTASSIUM BICARB 20 MEQ EFFERVESCENT TABLET. PO ONE ×2 (09:00→13:00)
--- NOTE | 2021-05-17 09:22 | PDOC ---
PULMONARY PROGRESS NOTES DATE: 05/17/21 TIME: 09:22 Subjective Patient feels less short of breath compared to yesterday. No chest pain or pressure. No productive cough. Vitals Vital Signs Date Time Temp Pulse Resp B/P (MAP) Pulse Ox O2 Delivery O2 Flow Rate FiO2 05/17/21 08:15 94 Nasal Cannula 8.0 05/17/21 06:00 86 18 111/56 (74) 05/17/21 04:00 98.7 98.7 ROS: No Nausea, No Abdominal Pain, No Increase Cough General: Alert Lungs: Crackles Cardiovascular: S1, S2 Abdomen: Soft, Non-tender Neuro Exam: Alert, Oriented Extremities: No Edema Skin: Warm Labs Laboratory Tests Test 05/15/21 18:10 05/15/21 21:35 05/16/21 04:20 05/16/21 13:40 White Blood Count 14.4 x10^3/uL (4.0-11.0) 14.4 x10^3/uL (4.0-11.0) Red Blood Count 3.37 x10^6/uL (4.30-5.70) 3.14 x10^6/uL (4.30-5.70) Hemoglobin 9.0 g/dL (13.0-17.5) 8.5 g/dL (13.0-17.5) Hematocrit 29.2 % (39.0-53.0) 27.0 % (39.0-53.0) Mean Corpuscular Volume 87 fL (79-100) 86 fL (79-100) Mean Corpuscular Hemoglobin 27 pg (25-35) 27 pg (25-35) Mean Corpuscular Hemoglobin Concent 31 g/dL (31-37) 31 g/dL (31-37) Red Cell Distribution Width 16.4 % (11.5-14.5) 16.7 % (11.5-14.5) Platelet Count 356 x10^3/uL (140-400) 306 x10^3/uL (140-400) Neutrophils (%) (Auto) 84 % (31-73) 84 % (31-73) Lymphocytes (%) (Auto) 6 % (24-48) 6 % (24-48) Monocytes (%) (Auto) 10 % (0-9) 10 % (0-9) Eosinophils (%) (Auto) 0 % (0-3) 0 % (0-3) Basophils (%) (Auto) 0 % (0-3) 1 % (0-3) Neutrophils # (Auto) 12.1 x10^3/uL (1.8-7.7) 12.1 x10^3/uL (1.8-7.7) Lymphocytes # (Auto) 0.9 x10^3/uL (1.0-4.8) 0.8 x10^3/uL (1.0-4.8) Monocytes # (Auto) 1.4 x10^3/uL (0.0-1.1) 1.4 x10^3/uL (0.0-1.1) Eosinophils # (Auto) 0.1 x10^3/uL (0.0-0.7) 0.0 x10^3/uL (0.0-0.7) Basophils # (Auto) 0.0 x10^3/uL (0.0-0.2) 0.1 x10^3/uL (0.0-0.2) Sodium Level 135 mmol/L (136-145) 137 mmol/L (136-145) Potassium Level 3.5 mmol/L (3.5-5.1) 4.2 mmol/L (3.5-5.1) Chloride Level 99 mmol/L (98-107) 100 mmol/L (98-107) Carbon Dioxide Level 21 mmol/L (21-32) 23 mmol/L (21-32) Anion Gap 15 (6-14) 14 (6-14) Blood Urea Nitrogen 32 mg/dL (8-26) 36 mg/dL (8-26) Creatinine 2.0 mg/dL (0.7-1.3) 2.2 mg/dL (0.7-1.3) Estimated GFR (Cockcroft-Gault) 32.9 29.5 BUN/Creatinine Ratio 16 (6-20) 16 (6-20) Glucose Level 137 mg/dL (70-99) 104 mg/dL (70-99) Calcium Level 8.0 mg/dL (8.5-10.1) 7.7 mg/dL (8.5-10.1) Total Bilirubin 0.6 mg/dL (0.2-1.0) 0.4 mg/dL (0.2-1.0) Aspartate Amino Transf (AST/SGOT) 65 U/L (15-37) 91 U/L (15-37) Alanine Aminotransferase (ALT/SGPT) 42 U/L (16-63) 42 U/L (16-63) Alkaline Phosphatase 67 U/L (46-116) 65 U/L (46-116) Troponin I High Sensitivity 6592 ng/L (4-75) 75611 ng/L (4-75) Total Protein 7.7 g/dL (6.4-8.2) 6.7 g/dL (6.4-8.2) Albumin 3.2 g/dL (3.4-5.0) 2.9 g/dL (3.4-5.0) Albumin/Globulin Ratio 0.7 (1.0-1.7) 0.8 (1.0-1.7) Triglycerides Level 58 mg/dL (0-150) Cholesterol Level 98 mg/dL (0-200) LDL Cholesterol, Calculated 47 mg/dL (0-100) VLDL Cholesterol, Calculated 12 mg/dL (0-40) Non-HDL Cholesterol Calculated 59 mg/dL (0-129) HDL Cholesterol 39 mg/dL (40-60) Cholesterol/HDL Ratio 2.5 Thyroid Stimulating Hormone (TSH) 1.070 uIU/mL (0.358-3.74) O2 Saturation 93 % (92-99) 86 % (92-99) Arterial Blood pH 7.39 (7.35-7.45) 7.38 (7.35-7.45) Arterial Blood pCO2 at Patient Temp 32 mmHg (35-46) 34 mmHg (35-46) Arterial Blood pO2 at Patient Temp 74 mmHg (65-108) 59 mmHg (65-108) Arterial Blood HCO3 19 mmol/L (21-28) 19 mmol/L (21-28) Arterial Blood Base Excess -5 mmol/L (-3-3) -5 mmol/L (-3-3) Oxyhemoglobin 92.7 % Methemoglobin 0.0 % (0.0-1.9) Carbon Monoxide, Quantitative 0.0 % (0.0-1.9) FiO2 40l 100% vapotherm 8 lpm nc Iron Level 13 ug/dL (65-175) Total Iron Binding Capacity 333 ug/dL (250-450) Iron Saturation 4 % (15-34) Vitamin B12 Level 518 pg/mL (247-911) Test 05/16/21 20:50 05/17/21 05:00 Heparin Anti-Xa Act, Unfractionated 0.16 IU/mL (0.30-0.70) 0.31 IU/mL (0.30-0.70) White Blood Count 12.5 x10^3/uL (4.0-11.0) Red Blood Count 3.09 x10^6/uL (4.30-5.70) Hemoglobin 8.1 g/dL (13.0-17.5) Hematocrit 26.5 % (39.0-53.0) Mean Corpuscular Volume 86 fL (79-100) Mean Corpuscular Hemoglobin 26 pg (25-35) Mean Corpuscular Hemoglobin Concent 31 g/dL (31-37) Red Cell Distribution Width 16.8 % (11.5-14.5) Platelet Count 278 x10^3/uL (140-400) Sodium Level 138 mmol/L (136-145) Potassium Level 2.7 mmol/L (3.5-5.1) Chloride Level 99 mmol/L (98-107) Carbon Dioxide Level 29 mmol/L (21-32) Anion Gap 10 (6-14) Blood Urea Nitrogen 27 mg/dL (8-26) Creatinine 1.5 mg/dL (0.7-1.3) Estimated GFR (Cockcroft-Gault) 45.9 Glucose Level 90 mg/dL (70-99) Calcium Level 6.9 mg/dL (8.5-10.1) Phosphorus Level 3.0 mg/dL (2.6-4.7) Albumin 2.7 g/dL (3.4-5.0) Laboratory Tests Test 05/16/21 13:40 05/16/21 20:50 05/17/21 05:00 O2 Saturation 86 % (92-99) Arterial Blood pH 7.38 (7.35-7.45) Arterial Blood pCO2 at Patient Temp 34 mmHg (35-46) Arterial Blood pO2 at Patient Temp 59 mmHg (65-108) Arterial Blood HCO3 19 mmol/L (21-28) Arterial Blood Base Excess -5 mmol/L (-3-3) FiO2 8 lpm nc Heparin Anti-Xa Act, Unfractionated 0.16 IU/mL (0.30-0.70) 0.31 IU/mL (0.30-0.70) White Blood Count 12.5 x10^3/uL (4.0-11.0) Red Blood Count 3.09 x10^6/uL (4.30-5.70) Hemoglobin 8.1 g/dL (13.0-17.5) Hematocrit 26.5 % (39.0-53.0) Mean Corpuscular Volume 86 fL (79-100) Mean Corpuscular Hemoglobin 26 pg (25-35) Mean Corpuscular Hemoglobin Concent 31 g/dL (31-37) Red Cell Distribution Width 16.8 % (11.5-14.5) Platelet Count 278 x10^3/uL (140-400) Sodium Level 138 mmol/L (136-145) Potassium Level 2.7 mmol/L (3.5-5.1) Chloride Level 99 mmol/L (98-107) Carbon Dioxide Level 29 mmol/L (21-32) Anion Gap 10 (6-14) Blood Urea Nitrogen 27 mg/dL (8-26) Creatinine 1.5 mg/dL (0.7-1.3) Estimated GFR (Cockcroft-Gault) 45.9 Glucose Level 90 mg/dL (70-99) Calcium Level 6.9 mg/dL (8.5-10.1) Phosphorus Level 3.0 mg/dL (2.6-4.7) Albumin 2.7 g/dL (3.4-5.0) Medications Active Scripts Medications Dose Route/Sig Max Daily Dose Days Date Category Dose Instructions Colace (Docusate Sodium) 100 Mg Capsule 1 Cap PO BID 11/18/15 Reported Coumadin (Warfarin Sodium) 3 Mg Tablet 1 Tab PO DAILY 11/18/15 Reported Ferrous Sulfate 325 Mg Tablet 325 Mg PO 10/29/15 Reported Next dose tomorrow 11/19/15 09 am. Viagra (Sildenafil Citrate) 100 Mg Tablet 100 Mg PO ONCE 10/29/15 Reported Resume prior to hospitalization. Atorvastatin Calcium 10 Mg Tablet 10 Mg PO HS 10/29/15 Reported Next dose tonight at bed time. Lisinopril 20 Mg Tablet 10 Mg PO DAILY 04/08/15 Reported Next dose tomorrow 11/19/15 at 9 am. Impression . IMPRESSION: 1. Acute hypoxemic respiratory failure secondary to acute systolic heart failure. 2. Chronic obstructive pulmonary disease with exacerbation. 3. Hypertension. 4. Tobacco dependent. 5. Non-ST segment elevation myocardial infarction. 6. Acute blood loss anemia. Hemoglobin is 6.9 upon arrival, status post transfusion. 7. Acute kidney injury. 8. Hypotension, suspect hypovolemia, possibly cardiogenic shock. 9. Cardiomyopathy ejection fraction 25% 10. Coronary artery disease, with 90% LAD occlusion Cardiac catheterization Wedge 33 mmHg Cardiac output 4.2 L/min, cardiac index 2.1 PA saturation 48% FA saturation 88% on 10 L nasal cannula Coronary angiography: Left main is a large caliber calcified vessel with a distal 50% stenosis LAD is a large caliber calcified vessel with an ostial 95% stenosis D1 is a moderate caliber vessel with normal angiographic appearance Left circumflex is a moderate to large caliber vessel with mild luminal irregularities OM1 is a moderate caliber vessel with mild luminal irregularities RCA is a moderate to large caliber dominant vessel with a mid subtotal occlusion with [id number] collaterals noted. Conclusion 1. Acute on chronic systolic and diastolic heart failure 2. Severe secondary pulmonary hypertension 3. Mildly decreased cardiac output 4. Acute respiratory failure secondary to cardiogenic shock and volume overload 5. Two-vessel coronary artery disease with left main involvement Recommendations 1. Initiate patient on Lasix drip, milrinone drip and heparin drip 2. After stabilization we will assess the patient's risk status for possible complex PCI versus bypass surgery. Plan . Updated 05/17 Continue optimizing cardiac medication for cardiogenic shock and acute systolic heart failure Possible PCI per cardiology Continue to diurese Oxygen supplementation Monitor H&H Replace potassium Monitor creatinine 05/16 PLAN: 1. The patient is to undergo cardiac catheterization. 2. Continue to diurese per Cardiology. 3. Monitor H and H. 4. GI workup for acute blood loss anemia. 5. Outpatient pulmonary function testing. 6. Repeat CT chest in 6 months. I do appreciate the privilege in sharing in the patient's care. Total cumulative critical care time of 40 minutes. GRICELDA DENNISON MD May 17, 2021 09:22
--- NOTE | 2021-05-17 09:41 | PDOC ---
Date of Service: DATE: 05/17/21 TIME: 09:37 Subjective: Subjective: No bleeding/stools. No GI complaints. Feels better. Objective: Vital Signs: Vital Signs Date Time Temp Pulse Resp B/P (MAP) Pulse Ox O2 Delivery O2 Flow Rate FiO2 05/17/21 08:15 94 Nasal Cannula 8.0 05/17/21 06:00 86 18 111/56 (74) 05/17/21 04:00 98.7 98.7 Labs: Laboratory Tests Test 05/16/21 13:40 05/16/21 20:50 05/17/21 05:00 O2 Saturation 86 % Arterial Blood pH 7.38 Arterial Blood pCO2 at Patient Temp 34 mmHg Arterial Blood pO2 at Patient Temp 59 mmHg Arterial Blood HCO3 19 mmol/L Arterial Blood Base Excess -5 mmol/L FiO2 8 lpm nc Heparin Anti-Xa Act, Unfractionated 0.16 IU/mL 0.31 IU/mL White Blood Count 12.5 x10^3/uL Red Blood Count 3.09 x10^6/uL Hemoglobin 8.1 g/dL Hematocrit 26.5 % Mean Corpuscular Volume 86 fL Mean Corpuscular Hemoglobin 26 pg Mean Corpuscular Hemoglobin Concent 31 g/dL Red Cell Distribution Width 16.8 % Platelet Count 278 x10^3/uL Sodium Level 138 mmol/L Potassium Level 2.7 mmol/L Chloride Level 99 mmol/L Carbon Dioxide Level 29 mmol/L Anion Gap 10 Blood Urea Nitrogen 27 mg/dL Creatinine 1.5 mg/dL Estimated GFR (Cockcroft-Gault) 45.9 Glucose Level 90 mg/dL Calcium Level 6.9 mg/dL Phosphorus Level 3.0 mg/dL Albumin 2.7 g/dL Imaging: Echo <Conclusion> Severe hypokinesis of mid to distal anterior and anteroseptal bryson and apical wall. The ejection fraction is estimated at 25%. Doppler and Color-flow revealed moderate mitral regurgitation. There is no evidence of significant pericardial effusion. Cath Conclusion 1. Acute on chronic systolic and diastolic heart failure 2. Severe secondary pulmonary hypertension 3. Mildly decreased cardiac output 4. Acute respiratory failure secondary to cardiogenic shock and volume overload 5. Two-vessel coronary artery disease with left main involvement Recommendations 1. Initiate patient on Lasix drip, milrinone drip and heparin drip 2. After stabilization we will assess the patient's risk status for possible complex PCI versus bypass surgery. PE: GEN: NAD - sitting up in bed, breakfast tray nearly empty LUNGS: NC 8L HEART: RRR ABD: S/ND/NT NEURO/PSYCH: A & O 3 A/P: CHF/resp failure, CAD, NSTEMI - cath/echo w/ plans as above MANUELITO - improved/stable Rectal bleeding - chronic, none here Hypokalemia -- Address cardiopulm issues. Follow Hgb, observe for bleeding, PO PPI, add iron. Justicifation of Admission Dx: Justifications for Admission: Justification of Admission Dx: Yes LIBERTAD BARCENAS May 17, 2021 09:41
--- NOTE | 2021-05-17 09:43 | PDOC ---
NEEMA ALVAREZ ATHLETIC DIRECTOR 05/17/21 0943: CARDIO Progress Notes Date and Time Date of Service 05/17/21 Time of Evaluation 1115 Subjective Subjective: No Chest Pain, No Palpitations, No Dizziness, Other (breathing improved) Vitals Vitals Vital Signs Date Time Temp Pulse Resp B/P (MAP) Pulse Ox O2 Delivery O2 Flow Rate FiO2 05/17/21 08:15 94 Nasal Cannula 8.0 05/17/21 06:00 86 18 111/56 (74) 05/17/21 04:00 98.7 98.7 Weight Weight [ ] Input and Output Intake and Output Intake and Output 05/17/21 07:00 Intake Total 1114.3 ml Output Total 5225 ml Balance -4110.7 ml Intake Oral 500 ml IV Total 604.3 ml Blood Product IV Normal Saline Flush 10 ml Output Urine Total 5225 ml Laboratory Labs Laboratory Tests Test 05/16/21 13:40 05/16/21 20:50 05/17/21 05:00 O2 Saturation 86 % (92-99) Arterial Blood pH 7.38 (7.35-7.45) Arterial Blood pCO2 at Patient Temp 34 mmHg (35-46) Arterial Blood pO2 at Patient Temp 59 mmHg (65-108) Arterial Blood HCO3 19 mmol/L (21-28) Arterial Blood Base Excess -5 mmol/L (-3-3) FiO2 8 lpm nc Heparin Anti-Xa Act, Unfractionated 0.16 IU/mL (0.30-0.70) 0.31 IU/mL (0.30-0.70) White Blood Count 12.5 x10^3/uL (4.0-11.0) Red Blood Count 3.09 x10^6/uL (4.30-5.70) Hemoglobin 8.1 g/dL (13.0-17.5) Hematocrit 26.5 % (39.0-53.0) Mean Corpuscular Volume 86 fL (79-100) Mean Corpuscular Hemoglobin 26 pg (25-35) Mean Corpuscular Hemoglobin Concent 31 g/dL (31-37) Red Cell Distribution Width 16.8 % (11.5-14.5) Platelet Count 278 x10^3/uL (140-400) Sodium Level 138 mmol/L (136-145) Potassium Level 2.7 mmol/L (3.5-5.1) Chloride Level 99 mmol/L (98-107) Carbon Dioxide Level 29 mmol/L (21-32) Anion Gap 10 (6-14) Blood Urea Nitrogen 27 mg/dL (8-26) Creatinine 1.5 mg/dL (0.7-1.3) Estimated GFR (Cockcroft-Gault) 45.9 Glucose Level 90 mg/dL (70-99) Calcium Level 6.9 mg/dL (8.5-10.1) Phosphorus Level 3.0 mg/dL (2.6-4.7) Albumin 2.7 g/dL (3.4-5.0) Physical Exam HEENT: Neck Supple W Full Motion Chest: Symmetric LUNGS: Other (diminished bases) Heart: RRR, other (2/6 systolic murmur ) Abdomen: Soft N/T Extremities: No Edema Neurology: alert, oriented, follow commands Assessment Assessment 1. Acute respiratory failure secondary to CHF 2. Acute on chronic systolic CHF; better compensated with milrinone, Lasix. negative over 4L. CVP 5 3. Severe ischemic cardiomyopathy, cardiogenic shock; Echo showed LVEF 25% with severe hypokinesis of mid to distal anterior and anteroseptal bryson and apical wall. Also moderate MR. RHC with volume overload, severe secondary pulmHTN. 4. NSTEMI; trop highest 16,603. EKG noted with anterolateral ST depression and lateral t-wave inversion, which was not present on prior EKG from 2019 5. CAD; [facility] with critical two-vessel disease with LM involvement. 6. Anemia; hgb 6.9 upon arrival. reports of intermittent hematochezia x2 months . s/p 2 units PRBC's. hgb now 8.1. no obvious bleeding 7. ASHA; cardiorenal. Improved. 8. H/o hypertension; remains low end, but adequate 9. Hyperlipidemia; statin 10. Carotid artery disease 11. Tobaccoism; discussed/encouraged cessation 12. Hypokalemia; replaced Recommendations Continue milrinone and heparin gtt Stop Lasix Monitor H and H. Add BB when BP consistently adequate No OSCAR/ARB with ASHA, hypotension Increase statin to high-dose Will optimize patient further and consider possible complex PCI versus bypass surgery. Supportive care Justicifation of Admission Dx: Justifications for Admission: Justification of Admission Dx: Yes CHF: Hemodynamic Instability DC: Acute NSTEMI WES JEFF MD 05/17/21 1809: CARDIO Progress Notes Plan Plan Patient seen and examined. Agree with above nurse practitioner note. Overall he is much improved after 4 L net diuresis Will have surgical team evaluate him, likely too high risk for surgery but will await their input Probably plan for high risk PCI of the LM/LAD and RCA in the next few days after stabilization of renal function, anemia and heart failure. Supportive care. CCT time > 35 minutes in addition to initiation consultation. Thanks NEEMA ALVAREZ APRN May 17, 2021 09:43 WES JEFF MD May 17, 2021 18:09
--- NOTE | 2021-05-17 10:47 | PDOC ---
DATE OF SERVICE DATE: 05/17/21 TIME: 10:46 SUBJECTIVE ROS S/P Cardiac cath on 05/16 . Diuresed well with lasix gtt . Feels much better today. OBJECTIVE Vital Signs Vital Signs Date Time Temp Pulse Resp B/P (MAP) Pulse Ox O2 Delivery O2 Flow Rate FiO2 05/17/21 08:15 94 Nasal Cannula 8.0 05/17/21 06:00 86 18 111/56 (74) 05/17/21 04:00 98.7 98.7 I & 0 Intake and Output 05/17/21 07:00 Intake Total 1114.3 ml Output Total 5225 ml Balance -4110.7 ml Intake Oral 500 ml IV Total 604.3 ml Blood Product IV Normal Saline Flush 10 ml Output Urine Total 5225 ml PHYSICAL EXAM Physical Exam General NAD HEEN OM moist, On O2 by NC Neck Supple Lungs Decreased at bases, Non labored CV S1S2 Abd Soft, NT Ext No LE edema Neuro Grossly normal, Moving all extremities No Schroeder placed , No CVA or SP tenderness Psych Cooperative Skin No Rash DIAGNOSIS/ASSESSMENT Assessment & Plan ASHA - Cardiorenal ; Baseline Creat Normal 0.7 in 2019 (per [facility] records) , Creat trending down. Monitor for JACLYN - Recd IV contrast with CT scan and Cardiac cath . Diuresed well with Lasix gtt Supportive care , Strict I/O, avoid Nephrotoxins, maintain fluid balance HypoKalemia- replace Hypotension- BP low POA ; Hx of HTN. Improved Anemia-Hgb trended down to 6.9 POA .s/p 2 units PRBC's Acute respiratory failure secondary -secondary to cardiogenic shock and volume overload. Clinically Improved. Good response to Lasix gtt and Milrinone Acute on chronic CHF - LVGram - Acute on chronic systolic and diastolic heart failure. Off Lasix gtt Severe secondary pulmonary hypertension NSTEMI; trop 16,603. EKG changes and symptomatic POA. Heart Cath 05/16 - 2V CAD with left main involvement. Card will re assess risk status for possible complex PCI versus bypass surgery CAD; CT chest with coronary artery calcifications Hematochezia- intermittent x2 months .Tsats very low . Recd PRBC x2 GI consulted Tobaccoism; encouraged cessation COMMENT/RELEVANT DATA Meds Current Medications Medications (Trade) Dose Ordered Sig/Layne Start Time Stop Time Status Last Admin Dose Admin Acetaminophen (Tylenol) 650 mg PRN Q6HRS PRN 05/15/21 17:00 Atorvastatin Calcium (Lipitor) 40 mg QHS 05/17/21 21:00 Atropine Sulfate (ATROPINE 0.5mg SYRINGE) 0.5 mg PRN Q5MIN PRN 05/15/21 22:00 Azithromycin 250 mg/Sodium Chloride 250 ml @ 250 mls/hr Q24H 05/15/21 20:00 05/16/21 20:47 250 MLS/HR Calcium Carbonate/ Glycine (Tums) 500 mg PRN Q3HRS PRN 05/15/21 17:00 Ceftriaxone Sodium (Rocephin) 1 gm Q24H 05/15/21 20:00 05/16/21 20:47 1 GM Dexmedetomidine HCl 400 mcg/ Sodium Chloride 100 ml @ 4.295 mls/ hr CONT PRN 05/15/21 22:00 05/15/21 22:25 4.295 MLS/HR Docusate Sodium (Colace) 100 mg BID 05/15/21 21:00 05/17/21 07:59 100 MG Fentanyl Citrate (Fentanyl 2ml Vial) 100 mcg 1X ONCE 05/16/21 14:00 05/16/21 14:14 DC 05/16/21 14:00 75 MCG Ferrous Sulfate (Feosol) 325 mg BIDAC 05/17/21 16:30 Furosemide (Lasix) 80 mg 1X ONCE 05/16/21 14:15 05/16/21 14:19 DC 05/16/21 15:30 80 MG Furosemide 100 mg/ Sodium Chloride 100 ml @ 5 mls/hr Q20H 05/16/21 14:30 05/17/21 09:45 DC 05/17/21 08:00 5 MLS/HR Heparin Sodium (Porcine) (Heparin Sodium) 2,100 unit PRN Q6HRS PRN 05/16/21 14:15 05/16/21 22:48 2,100 UNIT Heparin Sodium/ Dextrose 250 ml @ 10 mls/hr CONT PRN 05/16/21 14:15 05/16/21 16:20 10 MLS/HR Heparin Sodium/ Sodium Chloride (HEPARIN for ARTERIAL LINE FLUSH) 1,000 unit 1X ONCE 05/16/21 14:00 05/16/21 14:14 DC 05/16/21 14:00 1,000 UNIT Info (CONTRAST GIVEN -- Rx MONITORING) 1 each PRN DAILY PRN 05/16/21 14:15 05/18/21 14:14 Info (Non-Icu Electrolyte Protocol) 1 ea PRN DAILY PRN 05/15/21 17:00 Iodixanol (Visipaque 320) 100 ml 1X ONCE 05/16/21 14:00 05/16/21 14:14 DC 05/16/21 14:00 38 ML Iohexol (Omnipaque 300 Mg/ml) 60 ml 1X ONCE 05/15/21 21:30 05/15/21 21:31 DC 05/15/21 21:51 60 ML Lidocaine HCl (Lidocaine 1% 20ml Vial) 20 ml 1X ONCE 05/16/21 14:00 05/16/21 14:14 DC 05/16/21 14:00 8 ML Lidocaine HCl (Xylocaine-Mpf 1% 2ml Vial) 2 ml 1X ONCE 05/16/21 14:00 05/16/21 14:14 DC 05/16/21 14:00 1 ML Lisinopril (Prinivil) 10 mg DAILY 05/16/21 09:00 05/16/21 10:07 DC Midazolam HCl (Versed) 2 mg 1X ONCE 05/16/21 14:00 05/16/21 14:14 DC 05/16/21 14:00 2.5 MG Milrinone Lactate/ Dextrose 100 ml @ 3.161 mls/ hr CONT PRN 05/16/21 14:15 05/16/21 14:57 3.161 MLS/HR Nitroglycerin (Nitroglycerin) 200 mcg 1X ONCE 05/16/21 14:00 05/16/21 14:14 DC 05/16/21 14:00 200 MCG Norepinephrine Bitartrate 8 mg/ Dextrose 258 ml @ 16.622 mls/ hr CONT PRN 05/16/21 00:30 Ondansetron HCl (Zofran) 4 mg PRN Q6HRS PRN 05/15/21 17:00 Pantoprazole Sodium (PROTONIX VIAL for IV PUSH) 40 mg DAILYAC 05/15/21 18:00 05/17/21 09:42 DC 05/17/21 08:00 40 MG Pantoprazole Sodium (Protonix) 40 mg DAILYAC 05/18/21 07:30 Perflutren Protein Type A Microsphe (Optison) 0.66 mg 1X ONCE 05/16/21 08:15 05/16/21 08:16 DC Potassium Bicarbonate (Potassium Effervescent Tablet) 40 meq 1X ONCE 05/17/21 13:00 05/17/21 13:01 Potassium Chloride (Klor-Con) 40 meq Q2H 05/17/21 06:00 05/17/21 08:01 Cancel Senna/Docusate Sodium (Senna Plus) 1 tab BID 05/15/21 21:00 05/16/21 21:34 1 TAB Sodium Chloride 500 ml @ 500 mls/hr 1X PRN PRN 05/15/21 22:00 Sterile Water (WATER for RESP) 2,000 ml CONT PRN 05/15/21 17:15 Verapamil HCl (Verapamil) 2.5 mg 1X ONCE 05/16/21 14:00 05/16/21 14:14 DC 05/16/21 14:00 2.5 MG Lab Laboratory Tests Test 05/16/21 13:40 05/16/21 20:50 05/17/21 05:00 O2 Saturation 86 % (92-99) Arterial Blood pH 7.38 (7.35-7.45) Arterial Blood pCO2 at Patient Temp 34 mmHg (35-46) Arterial Blood pO2 at Patient Temp 59 mmHg (65-108) Arterial Blood HCO3 19 mmol/L (21-28) Arterial Blood Base Excess -5 mmol/L (-3-3) FiO2 8 lpm nc Heparin Anti-Xa Act, Unfractionated 0.16 IU/mL (0.30-0.70) 0.31 IU/mL (0.30-0.70) White Blood Count 12.5 x10^3/uL (4.0-11.0) Red Blood Count 3.09 x10^6/uL (4.30-5.70) Hemoglobin 8.1 g/dL (13.0-17.5) Hematocrit 26.5 % (39.0-53.0) Mean Corpuscular Volume 86 fL (79-100) Mean Corpuscular Hemoglobin 26 pg (25-35) Mean Corpuscular Hemoglobin Concent 31 g/dL (31-37) Red Cell Distribution Width 16.8 % (11.5-14.5) Platelet Count 278 x10^3/uL (140-400) Sodium Level 138 mmol/L (136-145) Potassium Level 2.7 mmol/L (3.5-5.1) Chloride Level 99 mmol/L (98-107) Carbon Dioxide Level 29 mmol/L (21-32) Anion Gap 10 (6-14) Blood Urea Nitrogen 27 mg/dL (8-26) Creatinine 1.5 mg/dL (0.7-1.3) Estimated GFR (Cockcroft-Gault) 45.9 Glucose Level 90 mg/dL (70-99) Calcium Level 6.9 mg/dL (8.5-10.1) Phosphorus Level 3.0 mg/dL (2.6-4.7) Magnesium Level 2.1 mg/dL (1.8-2.4) Albumin 2.7 g/dL (3.4-5.0) Results All relevant outside records, renal labs, imaging studies, telemetry/EKG's were reviewed. Justicifation of Admission Dx: Justifications for Admission: Justification of Admission Dx: Yes KERRY MAGAÑA MD May 17, 2021 10:47
[2021-05-17] MEDS: ANTI-COAG MONITOR BY PHARMACY. MC PRN (11:18)
[2021-05-17] MEDS: HEPARIN 25,000UTS/250ML PREMIX 250 ML IV PRN (11:44)
--- NOTE | 2021-05-17 12:39 | PDOC ---
[employer] PROGRESS NOTE Date of Service DOS: DATE: 05/17/21 TIME: 12:39 Chief Complaint Chief Complaint Acute SC Status post cardiac cath yesterday with the following results; Conclusion 1. Acute on chronic systolic and diastolic heart failure 2. Severe secondary pulmonary hypertension 3. Mildly decreased cardiac output 4. Acute respiratory failure secondary to cardiogenic shock and volume overload 5. Two-vessel coronary artery disease with left main involvement CAD Hypertension Respiratory failure GI bleed Thrombocytopenia Fluid overload Acute on chronic systolic diastolic heart failure ASHA History of Present Illness History of Present Illness 05/17/2021 Patient seen and examined in the ICU Went for cardiac cath yesterday Has a [place]-Leanna catheter Discussed with RN Discussed with case management Chart 05/17/2019 Patient seen and examined in the ICU He is scheduled to go to cardiac cath later today Discussed with RN Discussed with case management Chart review Vitals/I&O Vitals/I&O: Vital Signs Date Time Temp Pulse Resp B/P (MAP) Pulse Ox O2 Delivery O2 Flow Rate FiO2 05/17/21 08:15 94 Nasal Cannula 8.0 05/17/21 06:00 86 18 111/56 (74) 05/17/21 04:00 98.7 98.7 I & O 05/16/21 05/16/21 05/17/21 15:00 23:00 07:00 Intake Total 828 ml 286.3 ml Output Total 775 ml 2625 ml 1825 ml Balance -775 ml -1797 ml -1538.7 ml Physical Exam General: Alert, Oriented X3, Cooperative, mild distress Heart: Regular rate Abdomen: Soft, No tenderness Extremities: Other (trace bilateral LE edema ) Skin: No breakdown, No significant lesion Labs Labs: Laboratory Tests Test 05/16/21 13:40 05/16/21 20:50 05/17/21 05:00 05/17/21 11:30 O2 Saturation 86 % (92-99) Arterial Blood pH 7.38 (7.35-7.45) Arterial Blood pCO2 at Patient Temp 34 mmHg (35-46) Arterial Blood pO2 at Patient Temp 59 mmHg (65-108) Arterial Blood HCO3 19 mmol/L (21-28) Arterial Blood Base Excess -5 mmol/L (-3-3) FiO2 8 lpm nc Heparin Anti-Xa Act, Unfractionated 0.16 IU/mL (0.30-0.70) 0.31 IU/mL (0.30-0.70) 0.32 IU/mL (0.30-0.70) White Blood Count 12.5 x10^3/uL (4.0-11.0) Red Blood Count 3.09 x10^6/uL (4.30-5.70) Hemoglobin 8.1 g/dL (13.0-17.5) Hematocrit 26.5 % (39.0-53.0) Mean Corpuscular Volume 86 fL (79-100) Mean Corpuscular Hemoglobin 26 pg (25-35) Mean Corpuscular Hemoglobin Concent 31 g/dL (31-37) Red Cell Distribution Width 16.8 % (11.5-14.5) Platelet Count 278 x10^3/uL (140-400) Sodium Level 138 mmol/L (136-145) Potassium Level 2.7 mmol/L (3.5-5.1) Chloride Level 99 mmol/L (98-107) Carbon Dioxide Level 29 mmol/L (21-32) Anion Gap 10 (6-14) Blood Urea Nitrogen 27 mg/dL (8-26) Creatinine 1.5 mg/dL (0.7-1.3) Estimated GFR (Cockcroft-Gault) 45.9 Glucose Level 90 mg/dL (70-99) Calcium Level 6.9 mg/dL (8.5-10.1) Phosphorus Level 3.0 mg/dL (2.6-4.7) Magnesium Level 2.1 mg/dL (1.8-2.4) Albumin 2.7 g/dL (3.4-5.0) Assessment and Plan Assessmemt and Plan Acute SC Status post cardiac cath CAD Hypertension Respiratory failure GI bleed Thrombocytopenia Fluid overload Acute on chronic systolic diastolic heart failure ASHA Plan ICU monitoring Cardiac meds per cardiology Home meds DVT prophylaxis Full code Long-term prognosis guarded Appreciate subspecialist input Trend labs Per cardiology recommendations after the cardiac cath please see the following and we certainly agree and appreciate their input; Conclusion 1. Acute on chronic systolic and diastolic heart failure 2. Severe secondary pulmonary hypertension 3. Mildly decreased cardiac output 4. Acute respiratory failure secondary to cardiogenic shock and volume overload 5. Two-vessel coronary artery disease with left main involvement Recommendations 1. Initiate patient on Lasix drip, milrinone drip and heparin drip 2. After stabilization we will assess the patient's risk status for possible complex PCI versus bypass surgery. Comment Review of Relevant I have reviewed the following items angelica (where applicable) has been applied. Medications: Current Medications Medications (Trade) Dose Ordered Sig/Layne Route PRN Reason Start Time Stop Time Status Last Admin Dose Admin Nitroglycerin (Nitroglycerin) 200 mcg 1X ONCE IART 05/16/21 14:00 05/16/21 14:14 DC 05/16/21 14:00 Verapamil HCl (Verapamil) 2.5 mg 1X ONCE IART 05/16/21 14:00 05/16/21 14:14 DC 05/16/21 14:00 Heparin Sodium (Porcine) (Heparin Sodium) 2,500 unit 1X ONCE IART 05/16/21 14:00 05/16/21 14:14 DC 05/16/21 14:00 Heparin Sodium/ Sodium Chloride (HEPARIN for ARTERIAL LINE FLUSH) 1,000 unit 1X ONCE IART 05/16/21 14:00 05/16/21 14:14 DC 05/16/21 14:00 Heparin Sodium/ Sodium Chloride (HEPARIN for ARTERIAL LINE FLUSH) 1,000 unit 1X ONCE IART 05/16/21 14:00 05/16/21 14:14 DC 05/16/21 14:00 Midazolam HCl (Versed) 2 mg 1X ONCE IV 05/16/21 14:00 05/16/21 14:14 DC 05/16/21 14:00 Fentanyl Citrate (Fentanyl 2ml Vial) 100 mcg 1X ONCE IV 05/16/21 14:00 05/16/21 14:14 DC 05/16/21 14:00 Iodixanol (Visipaque 320) 100 ml 1X ONCE IART 05/16/21 14:00 05/16/21 14:14 DC 05/16/21 14:00 Lidocaine HCl (Lidocaine 1% 20ml Vial) 20 ml 1X ONCE INJ 05/16/21 14:00 05/16/21 14:14 DC 05/16/21 14:00 Lidocaine HCl (Xylocaine-Mpf 1% 2ml Vial) 2 ml 1X ONCE INJ 05/16/21 14:00 05/16/21 14:14 DC 05/16/21 14:00 Milrinone Lactate/ Dextrose 100 ml @ 3.161 mls/ hr CONT PRN IV SEE I/O RECORD 05/16/21 14:15 05/16/21 14:57 Furosemide (Lasix) 80 mg 1X ONCE IVP 05/16/21 14:15 05/16/21 14:19 DC 05/16/21 15:30 Furosemide 100 mg/ Sodium Chloride 100 ml @ 5 mls/hr Q20H IV 05/16/21 14:30 05/17/21 09:45 DC 05/17/21 08:00 Heparin Sodium/ Dextrose 250 ml @ 10 mls/hr CONT PRN IV PER PROTOCOL 05/16/21 14:15 05/17/21 11:44 Heparin Sodium (Porcine) (Heparin Sodium) 2,100 unit PRN Q6HRS PRN IV FOR UFH LEVEL LESS THAN 0.2 05/16/21 14:15 05/16/21 22:48 Potassium Bicarbonate (Potassium Effervescent Tablet) 40 meq 1X ONCE PEG 05/17/21 06:30 05/17/21 06:37 DC 05/17/21 07:59 Potassium Bicarbonate (Potassium Effervescent Tablet) 40 meq 1X ONCE PO 05/17/21 09:00 05/17/21 09:01 DC 05/17/21 09:56 Info (Anti-Coagulation Monitoring By Pharmacy) 1 each PRN DAILY PRN MC PER PROTOCOL 05/17/21 11:15 05/17/21 11:18 Justifications for Admission Other Justification LUPE APPLE III DO May 17, 2021 12:39
[2021-05-17] MEDS: SENNOSIDES/DOCUSATE 8.6/50MG TABLET. PO SCH ×2 (14:29→20:53)
--- NOTE | 2021-05-17 16:00 | RAD ---
EXAMINATION: XR CHEST 1V CLINICAL HISTORY: Heart failure. TECHNIQUE: XR CHEST 1V COMPARISON: 05/15/2021 FINDINGS/ IMPRESSION: Interval placement of right internal jugular A[place]-Elanna catheter terminating near the proximal right p ulmonary artery. New ill-defined opacities in the left lung base, possibly related to a layering pleural effusion and/ or airspace disease. Similar patchy bibasilar opacities and pulmonary edema. Stable heart size. Electronically signed by: Ethan Davis DO (05/17/2021 3:58 PM) [id number]
[2021-05-17] MEDS: FERROUS SULFATE 325 MG TABLET. PO SCH (17:18)
[2021-05-17] MEDS: MILRINONE 20MG/100ML PREMIX 100 ML IV PRN (17:18)
[2021-05-17] MEDS: LACTOBACILLUS RHAMNOSUS GG 1 CAPSULE. PO SCH (20:53)
[2021-05-17] MEDS: AZITHROMYCIN 250 MG in IV NORMAL SALINE 250ML 250 ML IV SCH (20:54)
[2021-05-17] MEDS: cefTRIAXone IV Push 1 GM VIAL. IVP SCH (20:54)
[2021-05-17] MEDS: ATORVASTATIN CALCIUM 40 MG TABLET. PO SCH (20:54)
[2021-05-18] VITALS (24 sets, daily range): BP systolic 82–116; BP diastolic 40–62
[2021-05-18 05:57] LABS: HEMATOCRIT 24.2 % (39.0-53.0); HEMOGLOBIN 7.6 g/dL (13.0-17.5); RED BLOOD COUNT 2.82 x10^6/uL (4.30-5.70); RED CELL DISTRIBUTION WIDTH 17.3 % (11.5-14.5); WHITE BLOOD COUNT 10.1 x10^3/uL (4.0-11.0)
[2021-05-18 06:09] LABS: CALCIUM 7.1 mg/dL (8.5-10.1); CREATININE 1.2 mg/dL (0.7-1.3); GFR 59.3; POTASSIUM 3.1 mmol/L (3.5-5.1)
[2021-05-18] MEDS ORDERED: POTASSIUM CHLORIDE 20 MEQ TABLET.ER. PO ONE (08:00)
[2021-05-18] MEDS: PANTOPRAZOLE 40 MG TABLET.DR. PO SCH (08:10)
--- NOTE | 2021-05-18 08:17 | PDOC ---
PULMONARY PROGRESS NOTES DATE: 05/18/21 TIME: 08:10 Subjective Patient reports no chest pain, shortness of breath is better, currently on IV milrinone Vitals Vital Signs Date Time Temp Pulse Resp B/P (MAP) Pulse Ox O2 Delivery O2 Flow Rate FiO2 05/18/21 07:00 97.4 94 18 114/51 (72) 98 Nasal Cannula 5.0 97.4 ROS: No Nausea, No Abdominal Pain, No Increase Cough General: Alert Lungs: Crackles Cardiovascular: S1, S2 Abdomen: Soft, Non-tender Neuro Exam: Alert, Oriented Extremities: No Edema Skin: Warm Labs Laboratory Tests Test 05/16/21 13:40 05/16/21 20:50 05/17/21 05:00 05/17/21 11:30 O2 Saturation 86 % (92-99) Arterial Blood pH 7.38 (7.35-7.45) Arterial Blood pCO2 at Patient Temp 34 mmHg (35-46) Arterial Blood pO2 at Patient Temp 59 mmHg (65-108) Arterial Blood HCO3 19 mmol/L (21-28) Arterial Blood Base Excess -5 mmol/L (-3-3) FiO2 8 lpm nc Heparin Anti-Xa Act, Unfractionated 0.16 IU/mL (0.30-0.70) 0.31 IU/mL (0.30-0.70) 0.32 IU/mL (0.30-0.70) White Blood Count 12.5 x10^3/uL (4.0-11.0) Red Blood Count 3.09 x10^6/uL (4.30-5.70) Hemoglobin 8.1 g/dL (13.0-17.5) Hematocrit 26.5 % (39.0-53.0) Mean Corpuscular Volume 86 fL (79-100) Mean Corpuscular Hemoglobin 26 pg (25-35) Mean Corpuscular Hemoglobin Concent 31 g/dL (31-37) Red Cell Distribution Width 16.8 % (11.5-14.5) Platelet Count 278 x10^3/uL (140-400) Sodium Level 138 mmol/L (136-145) Potassium Level 2.7 mmol/L (3.5-5.1) Chloride Level 99 mmol/L (98-107) Carbon Dioxide Level 29 mmol/L (21-32) Anion Gap 10 (6-14) Blood Urea Nitrogen 27 mg/dL (8-26) Creatinine 1.5 mg/dL (0.7-1.3) Estimated GFR (Cockcroft-Gault) 45.9 Glucose Level 90 mg/dL (70-99) Calcium Level 6.9 mg/dL (8.5-10.1) Phosphorus Level 3.0 mg/dL (2.6-4.7) Magnesium Level 2.1 mg/dL (1.8-2.4) Albumin 2.7 g/dL (3.4-5.0) Test 05/18/21 05:30 White Blood Count 10.1 x10^3/uL (4.0-11.0) Red Blood Count 2.82 x10^6/uL (4.30-5.70) Hemoglobin 7.6 g/dL (13.0-17.5) Hematocrit 24.2 % (39.0-53.0) Mean Corpuscular Volume 86 fL (79-100) Mean Corpuscular Hemoglobin 27 pg (25-35) Mean Corpuscular Hemoglobin Concent 31 g/dL (31-37) Red Cell Distribution Width 17.3 % (11.5-14.5) Platelet Count 239 x10^3/uL (140-400) Heparin Anti-Xa Act, Unfractionated 0.34 IU/mL (0.30-0.70) Sodium Level 137 mmol/L (136-145) Potassium Level 3.1 mmol/L (3.5-5.1) Chloride Level 98 mmol/L (98-107) Carbon Dioxide Level 33 mmol/L (21-32) Anion Gap 6 (6-14) Blood Urea Nitrogen 20 mg/dL (8-26) Creatinine 1.2 mg/dL (0.7-1.3) Estimated GFR (Cockcroft-Gault) 59.3 Glucose Level 102 mg/dL (70-99) Calcium Level 7.1 mg/dL (8.5-10.1) Laboratory Tests Test 05/17/21 11:30 05/18/21 05:30 Heparin Anti-Xa Act, Unfractionated 0.32 IU/mL (0.30-0.70) 0.34 IU/mL (0.30-0.70) White Blood Count 10.1 x10^3/uL (4.0-11.0) Red Blood Count 2.82 x10^6/uL (4.30-5.70) Hemoglobin 7.6 g/dL (13.0-17.5) Hematocrit 24.2 % (39.0-53.0) Mean Corpuscular Volume 86 fL (79-100) Mean Corpuscular Hemoglobin 27 pg (25-35) Mean Corpuscular Hemoglobin Concent 31 g/dL (31-37) Red Cell Distribution Width 17.3 % (11.5-14.5) Platelet Count 239 x10^3/uL (140-400) Sodium Level 137 mmol/L (136-145) Potassium Level 3.1 mmol/L (3.5-5.1) Chloride Level 98 mmol/L (98-107) Carbon Dioxide Level 33 mmol/L (21-32) Anion Gap 6 (6-14) Blood Urea Nitrogen 20 mg/dL (8-26) Creatinine 1.2 mg/dL (0.7-1.3) Estimated GFR (Cockcroft-Gault) 59.3 Glucose Level 102 mg/dL (70-99) Calcium Level 7.1 mg/dL (8.5-10.1) Medications Active Scripts Medications Dose Route/Sig Max Daily Dose Days Date Category Dose Instructions Colace (Docusate Sodium) 100 Mg Capsule 1 Cap PO BID 11/18/15 Reported Coumadin (Warfarin Sodium) 3 Mg Tablet 1 Tab PO DAILY 11/18/15 Reported Ferrous Sulfate 325 Mg Tablet 325 Mg PO 10/29/15 Reported Next dose tomorrow 11/19/15 09 am. Viagra (Sildenafil Citrate) 100 Mg Tablet 100 Mg PO ONCE 10/29/15 Reported Resume prior to hospitalization. Atorvastatin Calcium 10 Mg Tablet 10 Mg PO HS 10/29/15 Reported Next dose tonight at bed time. Lisinopril 20 Mg Tablet 10 Mg PO DAILY 04/08/15 Reported Next dose tomorrow 11/19/15 at 9 am. Impression . IMPRESSION: 1. Acute hypoxemic respiratory failure secondary to acute systolic heart failure. 2. Chronic obstructive pulmonary disease with exacerbation. 3. Hypertension. 4. Tobacco dependent. 5. Non-ST segment elevation myocardial infarction. 6. Acute blood loss anemia. Hemoglobin is 6.9 upon arrival, status post transfusion. 7. Acute kidney injury. 8. Hypotension, suspect hypovolemia, possibly cardiogenic shock. 9. Cardiomyopathy ejection fraction 25% 10. Coronary artery disease, with 90% LAD occlusion Cardiac catheterization Wedge 33 mmHg Cardiac output 4.2 L/min, cardiac index 2.1 PA saturation 48% FA saturation 88% on 10 L nasal cannula Coronary angiography: Left main is a large caliber calcified vessel with a distal 50% stenosis LAD is a large caliber calcified vessel with an ostial 95% stenosis D1 is a moderate caliber vessel with normal angiographic appearance Left circumflex is a moderate to large caliber vessel with mild luminal irregularities OM1 is a moderate caliber vessel with mild luminal irregularities RCA is a moderate to large caliber dominant vessel with a mid subtotal occlusion with [id number] collaterals noted. Conclusion 1. Acute on chronic systolic and diastolic heart failure 2. Severe secondary pulmonary hypertension 3. Mildly decreased cardiac output 4. Acute respiratory failure secondary to cardiogenic shock and volume overload 5. Two-vessel coronary artery disease with left main involvement Recommendations 1. Initiate patient on Lasix drip, milrinone drip and heparin drip 2. After stabilization we will assess the patient's risk status for possible complex PCI versus bypass surgery. Plan . Updated 05/18 Continue IV milrinone per cardiology Follow cardiology recommendations Continue optimizing cardiac medication for cardiogenic shock and acute systolic heart failure Continue to diurese Oxygen supplementation Monitor H&H Replace potassium Monitor creatinine GRICELDA DENNISON MD May 18, 2021 08:17
[2021-05-18] MEDS: LACTOBACILLUS RHAMNOSUS GG 1 CAPSULE. PO SCH ×2 (08:37→20:46)
[2021-05-18] MEDS: SENNOSIDES/DOCUSATE 8.6/50MG TABLET. PO SCH ×2 (08:37→20:46)
[2021-05-18] MEDS: FERROUS SULFATE 325 MG TABLET. PO SCH ×2 (08:37→17:23)
[2021-05-18] MEDS: DOCUSATE SODIUM 100 MG CAPSULE. PO SCH ×2 (08:41→20:46)
--- NOTE | 2021-05-18 09:02 | PDOC ---
DATE OF SERVICE DATE: 05/18/21 TIME: 09:01 SUBJECTIVE ROS stable, sitting up in chair OBJECTIVE Vital Signs Vital Signs Date Time Temp Pulse Resp B/P (MAP) Pulse Ox O2 Delivery O2 Flow Rate FiO2 05/18/21 07:00 97.4 94 18 114/51 (72) 98 Nasal Cannula 5.0 97.4 I & 0 Intake and Output 05/18/21 07:00 Intake Total 1653 ml Output Total 1960 ml Balance -307 ml Intake Oral 1040 ml IV Total 613 ml Output Urine Total 1960 ml PHYSICAL EXAM Physical Exam General NAD HEEN OM moist, On O2 by NC Neck Supple Lungs Decreased at bases, Non labored CV S1S2 Abd Soft, NT Ext No LE edema Neuro Grossly normal, Moving all extremities No Schroeder placed , No CVA or SP tenderness Psych Cooperative Skin No Rash DIAGNOSIS/ASSESSMENT Assessment & Plan ASHA - Cardiorenal ; Baseline Creat Normal 0.7 in 2019 (per [facility] records) , Creat trending down. Monitor for JACLYN - Recd IV contrast with CT scan and Cardiac cath . Supportive care , Strict I/O, avoid Nephrotoxins, maintain fluid balance HypoKalemia- replace Hypotension- BP low POA ; Hx of HTN. Improved Anemia-Hgb trended down to 6.9 POA .s/p 2 units PRBC's . Hgb trending down. GI following Acute respiratory failure secondary -secondary to cardiogenic shock and volume overload. Clinically Improved. Good response to Lasix gtt and Milrinone Acute on chronic CHF - LVGram - Acute on chronic systolic and diastolic heart failure. Off Lasix gtt Severe secondary pulmonary hypertension NSTEMI; trop 16,603. EKG changes and symptomatic POA. Heart Cath 05/16 - 2V CAD with left main involvement. Card will re assess risk status for possible complex PCI versus bypass surgery CAD; CT chest with coronary artery calcifications Hematochezia- intermittent x2 months .Tsats very low . Recd PRBC x2 GI c onsulted Tobaccoism; encouraged cessation COMMENT/RELEVANT DATA Meds Current Medications Medications (Trade) Dose Ordered Sig/Layne Start Time Stop Time Status Last Admin Dose Admin Acetaminophen (Tylenol) 650 mg PRN Q6HRS PRN 05/15/21 17:00 Atorvastatin Calcium (Lipitor) 40 mg QHS 05/17/21 21:00 05/17/21 20:54 40 MG Atropine Sulfate (ATROPINE 0.5mg SYRINGE) 0.5 mg PRN Q5MIN PRN 05/15/21 22:00 Azithromycin 250 mg/Sodium Chloride 250 ml @ 250 mls/hr Q24H 05/15/21 20:00 05/17/21 20:54 250 MLS/HR Calcium Carbonate/ Glycine (Tums) 500 mg PRN Q3HRS PRN 05/15/21 17:00 Ceftriaxone Sodium (Rocephin) 1 gm Q24H 05/15/21 20:00 05/17/21 20:54 1 GM Dexmedetomidine HCl 400 mcg/ Sodium Chloride 100 ml @ 4.295 mls/ hr CONT PRN 05/15/21 22:00 05/15/21 22:25 4.295 MLS/HR Docusate Sodium (Colace) 100 mg BID 05/15/21 21:00 05/17/21 20:53 100 MG Fentanyl Citrate (Fentanyl 2ml Vial) 100 mcg 1X ONCE 05/16/21 14:00 05/16/21 14:14 DC 05/16/21 14:00 75 MCG Ferrous Sulfate (Feosol) 325 mg BIDAC 05/17/21 16:30 05/18/21 08:37 325 MG Furosemide (Lasix) 80 mg 1X ONCE 05/16/21 14:15 05/16/21 14:19 DC 05/16/21 15:30 80 MG Furosemide 100 mg/ Sodium Chloride 100 ml @ 5 mls/hr Q20H 05/16/21 14:30 05/17/21 09:45 DC 05/17/21 08:00 5 MLS/HR Heparin Sodium (Porcine) (Heparin Sodium) 2,100 unit PRN Q6HRS PRN 05/16/21 14:15 05/16/21 22:48 2,100 UNIT Heparin Sodium/ Dextrose 250 ml @ 10 mls/hr CONT PRN 05/16/21 14:15 05/17/21 11:44 10 MLS/HR Heparin Sodium/ Sodium Chloride (HEPARIN for ARTERIAL LINE FLUSH) 1,000 unit 1X ONCE 05/16/21 14:00 05/16/21 14:14 DC 05/16/21 14:00 1,000 UNIT Info (Anti-Coagulation Monitoring By Pharmacy) 1 each PRN DAILY PRN 05/17/21 11:15 05/17/21 11:18 1 EACH Info (CONTRAST GIVEN -- Rx MONITORING) 1 each PRN DAILY PRN 05/16/21 14:15 05/18/21 14:14 Info (Non-Icu Electrolyte Protocol) 1 ea PRN DAILY PRN 05/15/21 17:00 Iodixanol (Visipaque 320) 100 ml 1X ONCE 05/16/21 14:00 05/16/21 14:14 DC 05/16/21 14:00 38 ML Iohexol (Omnipaque 300 Mg/ml) 60 ml 1X ONCE 05/15/21 21:30 05/15/21 21:31 DC 05/15/21 21:51 60 ML Lactobacillus Rhamnosus (Culturelle) 1 cap BID 05/17/21 21:00 05/18/21 08:37 1 CAP Lidocaine HCl (Lidocaine 1% 20ml Vial) 20 ml 1X ONCE 05/16/21 14:00 05/16/21 14:14 DC 05/16/21 14:00 8 ML Lidocaine HCl (Xylocaine-Mpf 1% 2ml Vial) 2 ml 1X ONCE 05/16/21 14:00 05/16/21 14:14 DC 05/16/21 14:00 1 ML Lisinopril (Prinivil) 10 mg DAILY 05/16/21 09:00 05/16/21 10:07 DC Midazolam HCl (Versed) 2 mg 1X ONCE 05/16/21 14:00 05/16/21 14:14 DC 05/16/21 14:00 2.5 MG Milrinone Lactate/ Dextrose 100 ml @ 3.161 mls/ hr CONT PRN 05/16/21 14:15 05/17/21 17:18 3.161 MLS/HR Nitroglycerin (Nitroglycerin) 200 mcg 1X ONCE 05/16/21 14:00 05/16/21 14:14 DC 05/16/21 14:00 200 MCG Norepinephrine Bitartrate 8 mg/ Dextrose 258 ml @ 16.622 mls/ hr CONT PRN 05/16/21 00:30 Ondansetron HCl (Zofran) 4 mg PRN Q6HRS PRN 05/15/21 17:00 Pantoprazole Sodium (PROTONIX VIAL for IV PUSH) 40 mg DAILYAC 05/15/21 18:00 05/17/21 09:42 DC 05/17/21 08:00 40 MG Pantoprazole Sodium (Protonix) 40 mg DAILYAC 05/18/21 07:30 05/18/21 08:10 40 MG Perflutren Protein Type A Microsphe (Optison) 0.66 mg 1X ONCE 05/16/21 08:15 05/16/21 08:16 DC Potassium Bicarbonate (Potassium Effervescent Tablet) 40 meq 1X ONCE 05/17/21 13:00 05/17/21 13:01 DC 05/17/21 14:30 40 MEQ Potassium Chloride (Klor-Con) 40 meq 1X ONCE 05/18/21 08:00 05/18/21 08:01 DC 05/18/21 08:37 40 MEQ Senna/Docusate Sodium (Senna Plus) 1 tab BID 05/15/21 21:00 05/18/21 08:37 1 TAB Sodium Chloride 500 ml @ 500 mls/hr 1X PRN PRN 05/15/21 22:00 Sterile Water (WATER for RESP) 2,000 ml CONT PRN 05/15/21 17:15 Verapamil HCl (Verapamil) 2.5 mg 1X ONCE 05/16/21 14:00 05/16/21 14:14 DC 05/16/21 14:00 2.5 MG Lab Laboratory Tests Test 05/17/21 11:30 05/18/21 05:30 Heparin Anti-Xa Act, Unfractionated 0.32 IU/mL (0.30-0.70) 0.34 IU/mL (0.30-0.70) White Blood Count 10.1 x10^3/uL (4.0-11.0) Red Blood Count 2.82 x10^6/uL (4.30-5.70) Hemoglobin 7.6 g/dL (13.0-17.5) Hematocrit 24.2 % (39.0-53.0) Mean Corpuscular Volume 86 fL (79-100) Mean Corpuscular Hemoglobin 27 pg (25-35) Mean Corpuscular Hemoglobin Concent 31 g/dL (31-37) Red Cell Distribution Width 17.3 % (11.5-14.5) Platelet Count 239 x10^3/uL (140-400) Sodium Level 137 mmol/L (136-145) Potassium Level 3.1 mmol/L (3.5-5.1) Chloride Level 98 mmol/L (98-107) Carbon Dioxide Level 33 mmol/L (21-32) Anion Gap 6 (6-14) Blood Urea Nitrogen 20 mg/dL (8-26) Creatinine 1.2 mg/dL (0.7-1.3) Estimated GFR (Cockcroft-Gault) 59.3 Glucose Level 102 mg/dL (70-99) Calcium Level 7.1 mg/dL (8.5-10.1) Results All relevant outside records, renal labs, imaging studies, telemetry/EKG's were reviewed. Justicifation of Admission Dx: Justifications for Admission: Justification of Admission Dx: Yes CHF: Hemodynamic Instability DC: Acute NSTEMI KERRY MAGAÑA MD May 18, 2021 09:02
[2021-05-18] MEDS: HEPARIN 25,000UTS/250ML PREMIX 250 ML IV PRN (09:10)
--- NOTE | 2021-05-18 09:14 | PDOC ---
Date of Service: DATE: 05/18/21 TIME: 09:11 Subjective: Subjective: No GI complaints, denies bleeding. Objective: Objective: D/w nurse - stooled w/o blood last night. Vital Signs: Vital Signs Date Time Temp Pulse Resp B/P (MAP) Pulse Ox O2 Delivery O2 Flow Rate FiO2 05/18/21 07:00 97.4 94 18 114/51 (72) 98 Nasal Cannula 5.0 97.4 Labs: Laboratory Tests Test 05/17/21 11:30 05/18/21 05:30 Heparin Anti-Xa Act, Unfractionated 0.32 IU/mL 0.34 IU/mL White Blood Count 10.1 x10^3/uL Red Blood Count 2.82 x10^6/uL Hemoglobin 7.6 g/dL Hematocrit 24.2 % Mean Corpuscular Volume 86 fL Mean Corpuscular Hemoglobin 27 pg Mean Corpuscular Hemoglobin Concent 31 g/dL Red Cell Distribution Width 17.3 % Platelet Count 239 x10^3/uL Sodium Level 137 mmol/L Potassium Level 3.1 mmol/L Chloride Level 98 mmol/L Carbon Dioxide Level 33 mmol/L Anion Gap 6 Blood Urea Nitrogen 20 mg/dL Creatinine 1.2 mg/dL Estimated GFR (Cockcroft-Gault) 59.3 Glucose Level 102 mg/dL Calcium Level 7.1 mg/dL Imaging: CXR IMPRESSION: Interval placement of right internal jugular [place]-Leanna catheter terminating near the proximal right pulmonary artery. New ill-defined opacities in the left lung base, possibly related to a layering pleural effusion and/or airspace disease. Similar patchy bibasilar opacities and pulmonary edema. Stable heart size. PE: GEN: NAD LUNGS: diminished, 5L NC HEART: RRR ABD: NABS, S/ND/NT NEURO/PSYCH: A & O 3 A/P: CHF/resp failure, CAD, NSTEMI - on Heparin, discussion for possible complex PCI vs bypass surgery MANUELITO - essentially stable since transfusions/slight Hgb drift Rectal bleeding - no recurrence -- Continue PPI and iron, observe GI-vera. Justicifation of Admission Dx: Justifications for Admission: Justification of Admission Dx: Yes CHF: Hemodynamic Instability ME: Acute NSTEMI LIBERTAD BARCENAS May 18, 2021 09:14
--- NOTE | 2021-05-18 10:15 | PDOC ---
NEEMA ALVAREZ [employer]PER[employer] 05/18/21 1015: CARDIO Progress Notes Date and Time Date of Service 05/18/21 Time of Evaluation 1015 Subjective Subjective: No Chest Pain, No Palpitations, No Dizziness, Other (breathing improved) Vitals Vitals Vital Signs Date Time Temp Pulse Resp B/P (MAP) Pulse Ox O2 Delivery O2 Flow Rate FiO2 05/18/21 09:00 96 27 95/49 (64) 100 Nasal Cannula 5.0 05/18/21 07:00 97.4 97.4 Weight Weight [ ] Input and Output Intake and Output Intake and Output 05/18/21 07:00 Intake Total 1653 ml Output Total 2060 ml Balance -407 ml Intake Oral 1040 ml IV Total 613 ml Output Urine Total 2060 ml Laboratory Labs Laboratory Tests Test 05/17/21 11:30 05/18/21 05:30 Heparin Anti-Xa Act, Unfractionated 0.32 IU/mL (0.30-0.70) 0.34 IU/mL (0.30-0.70) White Blood Count 10.1 x10^3/uL (4.0-11.0) Red Blood Count 2.82 x10^6/uL (4.30-5.70) Hemoglobin 7.6 g/dL (13.0-17.5) Hematocrit 24.2 % (39.0-53.0) Mean Corpuscular Volume 86 fL (79-100) Mean Corpuscular Hemoglobin 27 pg (25-35) Mean Corpuscular Hemoglobin Concent 31 g/dL (31-37) Red Cell Distribution Width 17.3 % (11.5-14.5) Platelet Count 239 x10^3/uL (140-400) Sodium Level 137 mmol/L (136-145) Potassium Level 3.1 mmol/L (3.5-5.1) Chloride Level 98 mmol/L (98-107) Carbon Dioxide Level 33 mmol/L (21-32) Anion Gap 6 (6-14) Blood Urea Nitrogen 20 mg/dL (8-26) Creatinine 1.2 mg/dL (0.7-1.3) Estimated GFR (Cockcroft-Gault) 59.3 Glucose Level 102 mg/dL (70-99) Calcium Level 7.1 mg/dL (8.5-10.1) Physical Exam HEENT: Neck Supple W Full Motion Chest: Symmetric LUNGS: Other (diminished bases) Heart: RRR, other (2/6 systolic murmur ) Abdomen: Soft N/T Extremities: No Edema Neurology: alert, oriented, follow commands Assessment Assessment 1. Acute respiratory failure secondary to CHF 2. Acute on chronic systolic CHF; much better compensated following fluid offloading with Lasix gtt and milrinone 3. Severe ischemic cardiomyopathy, cardiogenic shock; Echo showed LVEF 25% with severe hypokinesis of mid to distal anterior and anteroseptal bryson and apical wall. Also moderate MR. RHC with volume overload, severe secondary pulmHTN. 4. NSTEMI; trop highest 16,603. EKG noted with anterolateral ST depression and lateral t-wave inversion, which was not present on prior EKG from 2019 5. CAD; [facility] with critical two-vessel disease with LM involvement. 6. Anemia; hgb 6.9 upon arrival. reports of intermittent hematochezia x2 months . s/p 2 units PRBC's. hgb now 7.6. no obvious bleeding 7. ASHA; cardiorenal. Improved. 8. H/o hypertension; remains low end, but adequate 9. Hyperlipidemia; statin 10. Carotid artery disease 11. Tobaccoism 12. Hypokalemia; replaced Recommendations Continue milrinone and heparin gtt Monitor H and H. Add BB when BP consistently adequate No OSCAR/ARB with ASHA, hypotension High-dose statin CTS evaluation, although suspect he is too high risk for bypass Supportive care If not a surgical candidate, will plan for high risk PCI of the LM/LAD and RCA once optimization. Justicifation of Admission Dx: Justifications for Admission: Justification of Admission Dx: Yes CHF: Hemodynamic Instability IL: Acute NSTEMI WES JEFF MD 05/18/21 2220: CARDIO Progress Notes Plan Plan Pt. seen and examined. Agree with above PAGINATOR note. I had a long discussion with the patient and Dr. Jimenez. We feel that he will be better with complex PCI with Impella support. This will be scheduled for early next week after optimization of anemia. Remove swan tomorrow and maintain slightly negative fluid balance as renal function has improved. Supportive care. NEEMA ALVAREZ APRN May 18, 2021 10:15 WES JEFF MD May 18, 2021 22:20
--- NOTE | 2021-05-18 12:58 | PDOC ---
[employer] PROGRESS NOTE Date of Service DOS: DATE: 05/18/21 TIME: 12:56 Chief Complaint Chief Complaint Acute [place] Status post cardiac cath yesterday with the following results; Conclusion 1. Acute on chronic systolic and diastolic heart failure 2. Severe secondary pulmonary hypertension 3. Mildly decreased cardiac output 4. Acute respiratory failure secondary to cardiogenic shock and volume overload 5. Two-vessel coronary artery disease with left main involvement CAD Hypertension Respiratory failure GI bleed Thrombocytopenia Fluid overload Acute on chronic systolic diastolic heart failure ASHA History of Present Illness History of Present Illness 05/18/2021 Patient seen and examined in the ICU He is currently on a milrinone drip He also has a heparin drip Also has a [place]-Leanna Discussed with RN Chart reviewed Cardiology considering high risk PCI versus bypass 05/17/2021 Patient seen and examined in the ICU Went for cardiac cath yesterday Has a [place]-Leanna catheter Discussed with RN Discussed with case management Chart 05/17/2019 Patient seen and examined in the ICU He is scheduled to go to cardiac cath later today Discussed with RN Discussed with case management Chart review Vitals/I&O Vitals/I&O: Vital Signs Date Time Temp Pulse Resp B/P (MAP) Pulse Ox O2 Delivery O2 Flow Rate FiO2 05/18/21 12:00 Nasal Cannula 2.0 05/18/21 12:00 93 22 90/55 (67) 98 05/18/21 07:00 97.4 97.4 I & O 05/17/21 05/17/21 05/18/21 15:00 23:00 07:00 Intake Total 400 ml 827 ml 426 ml Output Total 725 ml 510 ml 825 ml Balance -325 ml 317 ml -399 ml Physical Exam General: Alert, Oriented X3, Cooperative, mild distress Heart: Regular rate Lungs: Crackles Abdomen: Soft, No tenderness Extremities: Other (trace bilateral LE edema ) Skin: No breakdown, No significant lesion Labs Labs: Laboratory Tests Test 05/18/21 05:30 White Blood Count 10.1 x10^3/uL (4.0-11.0) Red Blood Count 2.82 x10^6/uL (4.30-5.70) Hemoglobin 7.6 g/dL (13.0-17.5) Hematocrit 24.2 % (39.0-53.0) Mean Corpuscular Volume 86 fL (79-100) Mean Corpuscular Hemoglobin 27 pg (25-35) Mean Corpuscular Hemoglobin Concent 31 g/dL (31-37) Red Cell Distribution Width 17.3 % (11.5-14.5) Platelet Count 239 x10^3/uL (140-400) Heparin Anti-Xa Act, Unfractionated 0.34 IU/mL (0.30-0.70) Sodium Level 137 mmol/L (136-145) Potassium Level 3.1 mmol/L (3.5-5.1) Chloride Level 98 mmol/L (98-107) Carbon Dioxide Level 33 mmol/L (21-32) Anion Gap 6 (6-14) Blood Urea Nitrogen 20 mg/dL (8-26) Creatinine 1.2 mg/dL (0.7-1.3) Estimated GFR (Cockcroft-Gault) 59.3 Glucose Level 102 mg/dL (70-99) Calcium Level 7.1 mg/dL (8.5-10.1) Assessment and Plan Assessmemt and Plan Acute TN Status post cardiac cath CAD Hypertension Respiratory failure GI bleed Thrombocytopenia Fluid overload Acute on chronic systolic diastolic heart failure ASHA Plan ICU monitoring Cardiology considering high risk PCI versus bypass surgery and we certainly agree and appreciate their help Cardiac meds per cardiology Continue milrinone drip Continue heparin drip Home meds DVT prophylaxis Full code Long-term prognosis guarded Appreciate subspecialist input Trend labs Comment Review of Relevant I have reviewed the following items angelica (where applicable) has been applied. Medications: Current Medications Medications (Trade) Dose Ordered Sig/Layne Route PRN Reason Start Time Stop Time Status Last Admin Dose Admin Atorvastatin Calcium (Lipitor) 40 mg QHS PO 05/17/21 21:00 05/17/21 20:54 Ferrous Sulfate (Feosol) 325 mg BIDAC PO 05/17/21 16:30 05/18/21 08:37 Pantoprazole Sodium (Protonix) 40 mg DAILYAC PO 05/18/21 07:30 05/18/21 08:10 Potassium Bicarbonate (Potassium Effervescent Tablet) 40 meq 1X ONCE PO 05/17/21 13:00 05/17/21 13:01 DC 05/17/21 14:30 Lactobacillus Rhamnosus (Culturelle) 1 cap BID PO 05/17/21 21:00 05/18/21 08:37 Potassium Chloride (Klor-Con) 40 meq 1X ONCE PO 05/18/21 08:00 05/18/21 08:01 DC 05/18/21 08:37 Justifications for Admission Other Justification LUPE APPLE III DO May 18, 2021 12:57
[2021-05-18] MEDS: AZITHROMYCIN 250 MG in IV NORMAL SALINE 250ML 250 ML IV SCH (20:46)
[2021-05-18] MEDS: ATORVASTATIN CALCIUM 40 MG TABLET. PO SCH (20:46)
[2021-05-18] MEDS: cefTRIAXone IV Push 1 GM VIAL. IVP SCH (20:46)
--- NOTE | 2021-05-18 21:00 | PDOC2 ---
CONSULT Date of Consult Date of Consult DATE: 05/18/21 TIME: 20:42 Reason for Consult Reason for Consult: Coronary artery disease Referring Physician Referring Physician: Dr. Cruz Identification/Chief Complaint Chief Complaint "I had a heart attack." Source Source: Patient History of Present Illness Reason for Visit: 75 year old admitted to [facility] with shortness of breath at rest that developed along with 'heartburn' that was initially intermittent but became constant. Elevated troponin consistent with acute infarct. Heart failure was treated with milrinone iv and diuretics. Cardiac catheterization demonstrates high grade proximal LAD lesion and occluded RCA. LV function reduced by echo; EF estimated to be 25%. Pt is long time smoker who continued this habit until admission. Past Medical History Cardiovascular: HTN, Hyperlipidemia, Other (carotid artery disease ) Musculoskeletal: Osteoarthritis Past Surgical History Past Surgical History: Total hip replacement (left ) Family History Family History: Heart Disease (father ), Hypertension Social History Quit ALCOHOL: occassional Drugs: None Lives: Alone Current Medications Current Medications Current Medications Furosemide (Lasix) 80 mg 1X ONCE IVP Last administered on 05/15/21at 17:00; Start 05/15/21 at 17:00; Stop 05/15/21 at 17:01; Status DC Ondansetron HCl (Zofran) 4 mg PRN Q6HRS PRN IVP NAUSEA/VOMITING; Start 05/15/21 at 17:00 Calcium Carbonate/ Glycine (Tums) 500 mg PRN Q3HRS PRN PO UPSET STOMACH; Start 05/15/21 at 17:00 Info (Non-Icu Electrolyte Protocol) 1 ea PRN DAILY PRN MC SEE COMMENTS; Start 05/15/21 at 17:00 Acetaminophen (Tylenol) 650 mg PRN Q6HRS PRN PO Headaches, Temp > 101.5F; Start 05/15/21 at 17:00 Senna/Docusate Sodium (Senna Plus) 1 tab BID PO Last administered on 05/18/21at 08:37; Start 05/15/21 at 21:00 Pantoprazole Sodium (PROTONIX VIAL for IV PUSH) 40 mg DAILYAC IVP Last administered on 05/17/21at 08:00; Start 05/15/21 at 18:00; Stop 05/17/21 at 09:42; Status DC Atorvastatin Calcium (Lipitor) 10 mg HS PO Last administered on 05/16/21at 21:34; Start 05/15/21 at 21:00; Stop 05/17/21 at 09:41; Status DC Docusate Sodium (Colace) 100 mg BID PO Last administered on 05/17/21at 20:53; Start 05/15/21 at 21:00 Lisinopril (Prinivil) 10 mg DAILY PO ; Start 05/16/21 at 09:00; Stop 05/16/21 at 10:07; Status DC Sterile Water (WATER for RESP) 2,000 ml CONT PRN INH VIA VAPOTHERM DEVICE; Start 05/15/21 at 17:15 Ceftriaxone Sodium (Rocephin) 1 gm Q24H IVP Last administered on 05/17/21 20:54; Start 05/15/21 at 20:00 Azithromycin 250 mg/Sodium Chloride 250 ml @ 250 mls/hr Q24H IV Last administered on 05/17/21at 20:54; Start 05/15/21 at 20:00 Iohexol (Omnipaque 300 Mg/ml) 60 ml 1X ONCE IV Last administered on 05/15/21at 21:51; Start 05/15/21 at 21:30; Stop 05/15/21 at 21:31; Status DC Info (CONTRAST GIVEN -- Rx MONITORING) 1 each PRN DAILY PRN MC SEE COMMENTS; Start 05/15/21 at 21:30; Stop 05/17/21 at 21:29; Status DC Dexmedetomidine HCl 400 mcg/ Sodium Chloride 100 ml @ 4.295 mls/ hr CONT PRN IV PER PROTOCOL Last administered on 05/15/21at 22:25; Start 05/15/21 at 22:00 Sodium Chloride 500 ml @ 500 mls/hr 1X PRN PRN IV SEE COMMENTS; Start 05/15/21 at 22:00 Atropine Sulfate (ATROPINE 0.5mg SYRINGE) 0.5 mg PRN Q5MIN PRN IV SEE COMMENTS; Start 05/15/21 at 22:00 Norepinephrine Bitartrate 8 mg/ Dextrose 258 ml @ 16.622 mls/ hr CONT PRN IV PER PROTOCOL; Start 05/16/21 at 00:30 Perflutren Protein Type A Microsphe (Optison) 0.66 mg 1X ONCE IV ; Start 05/16/21 at 08:15; Stop 05/16/21 at 08:16; Status DC Lidocaine HCl (Xylocaine-Mpf 1% 2ml Vial) 2 ml STK-MED ONCE .ROUTE ; Start 05/16/21 at 12:29; Stop 05/16/21 at 12:29; Status DC Heparin Sodium/ Sodium Chloride 1,000 ml @ As Directed STK-MED ONCE .ROUTE ; Start 05/16/21 at 12:29; Stop 05/16/21 at 12:29; Status DC Fentanyl Citrate (Fentanyl 2ml Vial) 100 mcg STK-MED ONCE .ROUTE ; Start 05/16/21 at 12:50; Stop 05/16/21 at 12:50; Status DC Midazolam HCl (Versed) 2 mg STK-MED ONCE .ROUTE ; Start 05/16/21 at 12:50; Stop 05/16/21 at 12:50; Status DC Heparin Sodium (Porcine) (Heparin Sodium) 10,000 unit STK-MED ONCE .ROUTE ; Start 05/16/21 at 12:50; Stop 05/16/21 at 12:50; Status DC Verapamil HCl (Verapamil) 5 mg STK-MED ONCE .ROUTE ; Start 05/16/21 at 12:50; Stop 05/16/21 at 12:50; Status DC Nitroglycerin (Nitroglycerin) 200 mcg STK-MED ONCE .ROUTE ; Start 05/16/21 at 12:50; Stop 05/16/21 at 12:51; Status DC Iodixanol (Visipaque 320) 100 ml STK-MED ONCE .ROUTE ; Start 05/16/21 at 13:22; Stop 05/16/21 at 13:22; Status DC Lidocaine HCl (Lidocaine 1% 20ml Vial) 20 ml STK-MED ONCE .ROUTE ; Start 05/16/21 at 13:33; Stop 05/16/21 at 13:33; Status DC Midazolam HCl (Versed) 2 mg STK-MED ONCE .ROUTE ; Start 05/16/21 at 13:38; Stop 05/16/21 at 13:38; Status DC Nitroglycerin (Nitroglycerin) 200 mcg 1X ONCE IART Last administered on 05/16/21at 14:00; Start 05/16/21 at 14:00; Stop 05/16/21 at 14:14; Status DC Verapamil HCl (Verapamil) 2.5 mg 1X ONCE IART Last administered on 05/16/21at 14:00; Start 05/16/21 at 14:00; Stop 05/16/21 at 14:14; Status DC Heparin Sodium (Porcine) (Heparin Sodium) 2,500 unit 1X ONCE IART Last administered on 05/16/21at 14:00; Start 05/16/21 at 14:00; Stop 05/16/21 at 14:14; Status DC Heparin Sodium/ Sodium Chloride (HEPARIN for ARTERIAL LINE FLUSH) 1,000 unit 1X ONCE IART Last administered on 05/16/21at 14:00; Start 05/16/21 at 14:00; Stop 05/16/21 at 14:14; Status DC Heparin Sodium/ Sodium Chloride (HEPARIN for ARTERIAL LINE FLUSH) 1,000 unit 1X ONCE IART Last administered on 05/16/21 14:00; Start 05/16/21 at 14:00; Stop 05/16/21 at 14:14; Status DC Midazolam HCl (Versed) 2 mg 1X ONCE IV Last administered on 05/16/21 14:00; Start 05/16/21 at 14:00; Stop 05/16/21 at 14:14; Status DC Fentanyl Citrate (Fentanyl 2ml Vial) 100 mcg 1X ONCE IV Last administered on 05/16/21 14:00; Start 05/16/21 at 14:00; Stop 05/16/21 at 14:14; Status DC Iodixanol (Visipaque 320) 100 ml 1X ONCE IART Last administered on 05/16/21 14:00; Start 05/16/21 at 14:00; Stop 05/16/21 at 14:14; Status DC Lidocaine HCl (Lidocaine 1% 20ml Vial) 20 ml 1X ONCE INJ Last administered on 05/16/21at 14:00; Start 05/16/21 at 14:00; Stop 05/16/21 at 14:14; Status DC Lidocaine HCl (Xylocaine-Mpf 1% 2ml Vial) 2 ml 1X ONCE INJ Last administered on 05/16/21at 14:00; Start 05/16/21 at 14:00; Stop 05/16/21 at 14:14; Status DC Info (CONTRAST GIVEN -- Rx MONITORING) 1 each PRN DAILY PRN MC SEE COMMENTS; Start 05/16/21 at 14:15; Stop 05/18/21 at 14:14; Status DC Milrinone Lactate/ Dextrose 100 ml @ 3.161 mls/ hr CONT PRN IV SEE I/O RECORD Last administered on 05/17/21 17:18; Start 05/16/21 at 14:15 Furosemide (Lasix) 80 mg 1X ONCE IVP Last administered on 05/16/21 15:30; Start 05/16/21 at 14:15; Stop 05/16/21 at 14:19; Status DC Furosemide 100 mg/ Sodium Chloride 100 ml @ 5 mls/hr Q20H IV Last administered on 05/17/21 08:00; Start 05/16/21 at 14:30; Stop 05/17/21 at 09:45; Status DC Heparin Sodium/ Dextrose 250 ml @ 10 mls/hr CONT PRN IV PER PROTOCOL Last administered on 05/18/21 09:10; Start 05/16/21 at 14:15 Heparin Sodium (Porcine) (Heparin Sodium) 2,100 unit PRN Q6HRS PRN IV FOR UFH LEVEL LESS THAN 0.2 Last administered on 05/16/21 22:48; Start 05/16/21 at 14:15 Potassium Chloride (Klor-Con) 40 meq Q2H PO ; Start 05/17/21 at 06:00; Stop 05/17/21 at 08:01; Status Cancel Potassium Bicarbonate (Potassium Effervescent Tablet) 40 meq 1X ONCE PEG Last administered on 05/17/21 07:59; Start 05/17/21 at 06:30; Stop 05/17/21 at 06:37; Status DC Potassium Bicarbonate (Potassium Effervescent Tablet) 40 meq 1X ONCE PO Last administered on 05/17/21 09:56; Start 05/17/21 at 09:00; Stop 05/17/21 at 09:01; Status DC Atorvastatin Calcium (Lipitor) 40 mg QHS PO Last administered on 05/17/21 20:54; Start 05/17/21 at 21:00 Ferrous Sulfate (Feosol) 325 mg BIDAC PO Last administered on 05/18/21 17:23; Start 05/17/21 at 16:30 Pantoprazole Sodium (Protonix) 40 mg DAILYAC PO Last administered on 05/18/21at 08:10; Start 05/18/21 at 07:30 Potassium Bicarbonate (Potassium Effervescent Tablet) 40 meq 1X ONCE PO Last administered on 05/17/21at 14:30; Start 05/17/21 at 13:00; Stop 05/17/21 at 13:01; Status DC Lactobacillus Rhamnosus (Culturelle) 1 cap BID PO Last administered on 05/18/21at 08:37; Start 05/17/21 at 21:00 Info (Anti-Coagulation Monitoring By Pharmacy) 1 each PRN DAILY PRN MC PER PROTOCOL Last administered on 05/17/21at 11:18; Start 05/17/21 at 11:15 Potassium Chloride (Klor-Con) 40 meq 1X ONCE PO Last administered on 05/18/21at 08:37; Start 05/18/21 at 08:00; Stop 05/18/21 at 08:01; Status DC Active Scripts Active Reported Colace (Docusate Sodium) 100 Mg Capsule 1 Cap PO BID Coumadin (Warfarin Sodium) 3 Mg Tablet 1 Tab PO DAILY Ferrous Sulfate 325 Mg Tablet 325 Mg PO Next dose tomorrow 11/19/15 09 am. Viagra (Sildenafil Citrate) 100 Mg Tablet 100 Mg PO ONCE Resume prior to hospitalization. Atorvastatin Calcium 10 Mg Tablet 10 Mg PO HS Next dose tonight at bed time. Lisinopril 20 Mg Tablet 10 Mg PO DAILY Next dose tomorrow 11/19/15 at 9 am. Allergies Allergies: Coded Allergies: No Known Drug Allergies (Unverified , 04/08/15) Physical Exam General: Alert, Oriented X3, Cooperative, Other (pursed lip breathing) HEENT: PERRLA, Mucous membr. moist/pink Lungs: Other (distant breath sounds anteriorly, increased AP diameter) Heart: Regular rate, Normal S1, Normal S2, Other (systolic murmur 1/6) Abdomen: Other (soft distension, no tenderness) Extremities: No clubbing, No cyanosis, Other (trace pedal edema) Skin: No rashes Psych/Mental Status: Mental status NL, Mood NL MUSCULOSKELETAL: No joint tenderness, No deformity Vitals VITALS Vital Signs Date Time Temp Pulse Resp B/P (MAP) Pulse Ox O2 Delivery O2 Flow Rate FiO2 05/18/21 20:00 106 05/18/21 20:00 2.0 05/18/21 20:00 Nasal Cannula 05/18/21 19:00 20 96/57 (70) 97 05/18/21 16:00 98.7 98.7 Labs Labs Laboratory Tests Test 05/16/21 20:50 05/17/21 05:00 05/17/21 11:30 05/18/21 05:30 Heparin Anti-Xa Act, Unfractionated 0.16 IU/mL (0.30-0.70) 0.31 IU/mL (0.30-0.70) 0.32 IU/mL (0.30-0.70) 0.34 IU/mL (0.30-0.70) White Blood Count 12.5 x10^3/uL (4.0-11.0) 10.1 x10^3/uL (4.0-11.0) Red Blood Count 3.09 x10^6/uL (4.30-5.70) 2.82 x10^6/uL (4.30-5.70) Hemoglobin 8.1 g/dL (13.0-17.5) 7.6 g/dL (13.0-17.5) Hematocrit 26.5 % (39.0-53.0) 24.2 % (39.0-53.0) Mean Corpuscular Volume 86 fL (79-100) 86 fL (79-100) Mean Corpuscular Hemoglobin 26 pg (25-35) 27 pg (25-35) Mean Corpuscular Hemoglobin Concent 31 g/dL (31-37) 31 g/dL (31-37) Red Cell Distribution Width 16.8 % (11.5-14.5) 17.3 % (11.5-14.5) Platelet Count 278 x10^3/uL (140-400) 239 x10^3/uL (140-400) Sodium Level 138 mmol/L (136-145) 137 mmol/L (136-145) Potassium Level 2.7 mmol/L (3.5-5.1) 3.1 mmol/L (3.5-5.1) Chloride Level 99 mmol/L (98-107) 98 mmol/L (98-107) Carbon Dioxide Level 29 mmol/L (21-32) 33 mmol/L (21-32) Anion Gap 10 (6-14) 6 (6-14) Blood Urea Nitrogen 27 mg/dL (8-26) 20 mg/dL (8-26) Creatinine 1.5 mg/dL (0.7-1.3) 1.2 mg/dL (0.7-1.3) Estimated GFR (Cockcroft-Gault) 45.9 59.3 Glucose Level 90 mg/dL (70-99) 102 mg/dL (70-99) Calcium Level 6.9 mg/dL (8.5-10.1) 7.1 mg/dL (8.5-10.1) Phosphorus Level 3.0 mg/dL (2.6-4.7) Magnesium Level 2.1 mg/dL (1.8-2.4) Albumin 2.7 g/dL (3.4-5.0) Laboratory Tests Test 05/18/21 05:30 White Blood Count 10.1 x10^3/uL (4.0-11.0) Red Blood Count 2.82 x10^6/uL (4.30-5.70) Hemoglobin 7.6 g/dL (13.0-17.5) Hematocrit 24.2 % (39.0-53.0) Mean Corpuscular Volume 86 fL (79-100) Mean Corpuscular Hemoglobin 27 pg (25-35) Mean Corpuscular Hemoglobin Concent 31 g/dL (31-37) Red Cell Distribution Width 17.3 % (11.5-14.5) Platelet Count 239 x10^3/uL (140-400) Heparin Anti-Xa Act, Unfractionated 0.34 IU/mL (0.30-0.70) Sodium Level 137 mmol/L (136-145) Potassium Level 3.1 mmol/L (3.5-5.1) Chloride Level 98 mmol/L (98-107) Carbon Dioxide Level 33 mmol/L (21-32) Anion Gap 6 (6-14) Blood Urea Nitrogen 20 mg/dL (8-26) Creatinine 1.2 mg/dL (0.7-1.3) Estimated GFR (Cockcroft-Gault) 59.3 Glucose Level 102 mg/dL (70-99) Calcium Level 7.1 mg/dL (8.5-10.1) Assessment/Plan Assessment/Plan I discussed the catheterization findings with the patient in the context of his presentation. Pt has important coronary artery disease with reduced left ventricular function. Revascularization high risk (relatively), but pt not likely to do well without either CABG of successful angioplasty/stent of LAD. Risks and details of CABG discussed. These include bleeding, infection, anesthesia risks, heart problems, pulmonary dysfunction, stroke, and . Patient understands and is willing to proceed if this is our recommendation. I will discuss case with Dr. Cruz. ALVERTO LOPEZ MD May 18, 2021 21:00
[2021-05-19] VITALS (11 sets, daily range): BP systolic 81–108; BP diastolic 40–63
[2021-05-19] MEDS: MILRINONE 20MG/100ML PREMIX 100 ML IV PRN (00:47)
[2021-05-19] MEDS: HEPARIN 25,000UTS/250ML PREMIX 250 ML IV PRN (05:30)
[2021-05-19 05:52] LABS: CALCIUM 7.5 mg/dL (8.5-10.1); CREATININE 0.9 mg/dL (0.7-1.3); GFR 82.7; POTASSIUM 3.9 mmol/L (3.5-5.1)
[2021-05-19] MEDS: PANTOPRAZOLE 40 MG TABLET.DR. PO SCH (07:59)
[2021-05-19] MEDS: LACTOBACILLUS RHAMNOSUS GG 1 CAPSULE. PO SCH ×2 (08:43→21:06)
[2021-05-19] MEDS: SENNOSIDES/DOCUSATE 8.6/50MG TABLET. PO SCH ×2 (08:43→21:06)
[2021-05-19] MEDS: FERROUS SULFATE 325 MG TABLET. PO SCH ×2 (08:43→17:56)
[2021-05-19] MEDS: DOCUSATE SODIUM 100 MG CAPSULE. PO SCH ×2 (08:45→21:06)
--- NOTE | 2021-05-19 09:41 | PDOC ---
PULMONARY PROGRESS NOTES DATE: 05/19/21 TIME: 09:41 Subjective Overnight events patient reports no chest pain, shortness of breath is better, currently on IV milrinone Vitals Vital Signs Date Time Temp Pulse Resp B/P (MAP) Pulse Ox O2 Delivery O2 Flow Rate FiO2 05/19/21 07:00 109 24 90/48 (62) 95 Nasal Cannula 2.0 05/19/21 04:00 98.7 98.7 ROS: No Nausea, No Abdominal Pain, No Increase Cough General: Alert Lungs: Crackles Cardiovascular: S1, S2 Abdomen: Soft, Non-tender Neuro Exam: Alert, Oriented Extremities: No Edema Skin: Warm Labs Laboratory Tests Test 05/17/21 11:30 05/18/21 05:30 05/19/21 05:30 Heparin Anti-Xa Act, Unfractionated 0.32 IU/mL (0.30-0.70) 0.34 IU/mL (0.30-0.70) 0.48 IU/mL (0.30-0.70) White Blood Count 10.1 x10^3/uL (4.0-11.0) Red Blood Count 2.82 x10^6/uL (4.30-5.70) Hemoglobin 7.6 g/dL (13.0-17.5) Hematocrit 24.2 % (39.0-53.0) Mean Corpuscular Volume 86 fL (79-100) Mean Corpuscular Hemoglobin 27 pg (25-35) Mean Corpuscular Hemoglobin Concent 31 g/dL (31-37) Red Cell Distribution Width 17.3 % (11.5-14.5) Platelet Count 239 x10^3/uL (140-400) Sodium Level 137 mmol/L (136-145) 136 mmol/L (136-145) Potassium Level 3.1 mmol/L (3.5-5.1) 3.9 mmol/L (3.5-5.1) Chloride Level 98 mmol/L (98-107) 98 mmol/L (98-107) Carbon Dioxide Level 33 mmol/L (21-32) 31 mmol/L (21-32) Anion Gap 6 (6-14) 7 (6-14) Blood Urea Nitrogen 20 mg/dL (8-26) 14 mg/dL (8-26) Creatinine 1.2 mg/dL (0.7-1.3) 0.9 mg/dL (0.7-1.3) Estimated GFR (Cockcroft-Gault) 59.3 82.7 Glucose Level 102 mg/dL (70-99) 100 mg/dL (70-99) Calcium Level 7.1 mg/dL (8.5-10.1) 7.5 mg/dL (8.5-10.1) Laboratory Tests Test 05/19/21 05:30 Heparin Anti-Xa Act, Unfractionated 0.48 IU/mL (0.30-0.70) Sodium Level 136 mmol/L (136-145) Potassium Level 3.9 mmol/L (3.5-5.1) Chloride Level 98 mmol/L (98-107) Carbon Dioxide Level 31 mmol/L (21-32) Anion Gap 7 (6-14) Blood Urea Nitrogen 14 mg/dL (8-26) Creatinine 0.9 mg/dL (0.7-1.3) Estimated GFR (Cockcroft-Gault) 82.7 Glucose Level 100 mg/dL (70-99) Calcium Level 7.5 mg/dL (8.5-10.1) Medications Active Scripts Medications Dose Route/Sig Max Daily Dose Days Date Category Dose Instructions Colace (Docusate Sodium) 100 Mg Capsule 1 Cap PO BID 11/18/15 Reported Coumadin (Warfarin Sodium) 3 Mg Tablet 1 Tab PO DAILY 11/18/15 Reported Ferrous Sulfate 325 Mg Tablet 325 Mg PO 10/29/15 Reported Next dose tomorrow 11/19/15 09 am. Viagra (Sildenafil Citrate) 100 Mg Tablet 100 Mg PO ONCE 10/29/15 Reported Resume prior to hospitalization. Atorvastatin Calcium 10 Mg Tablet 10 Mg PO HS 10/29/15 Reported Next dose tonight at bed time. Lisinopril 20 Mg Tablet 10 Mg PO DAILY 04/08/15 Reported Next dose tomorrow 11/19/15 at 9 am. Impression . IMPRESSION: 1. Acute hypoxemic respiratory failure secondary to acute systolic heart failure. 2. Chronic obstructive pulmonary disease with exacerbation. 3. Hypertension. 4. Tobacco dependent. 5. Non-ST segment elevation myocardial infarction. 6. Acute blood loss anemia. Hemoglobin is 6.9 upon arrival, status post transfusion. 7. Acute kidney injury. 8. Hypotension, suspect hypovolemia, possibly cardiogenic shock. 9. Cardiomyopathy ejection fraction 25% 10. Coronary artery disease, with 90% LAD occlusion Cardiac catheterization Wedge 33 mmHg Cardiac output 4.2 L/min, cardiac index 2.1 PA saturation 48% FA saturation 88% on 10 L nasal cannula Coronary angiography: Left main is a large caliber calcified vessel with a distal 50% stenosis LAD is a large caliber calcified vessel with an ostial 95% stenosis D1 is a moderate caliber vessel with normal angiographic appearance Left circumflex is a moderate to large caliber vessel with mild luminal irregularities OM1 is a moderate caliber vessel with mild luminal irregularities RCA is a moderate to large caliber dominant vessel with a mid subtotal occlusion with [id number] collaterals noted. Conclusion 1. Acute on chronic systolic and diastolic heart failure 2. Severe secondary pulmonary hypertension 3. Mildly decreased cardiac output 4. Acute respiratory failure secondary to cardiogenic shock and volume overload 5. Two-vessel coronary artery disease with left main involvement Recommendations 1. Initiate patient on Lasix drip, milrinone drip and heparin drip 2. After stabilization we will assess the patient's risk status for possible complex PCI versus bypass surgery. Plan . Updated 05/19 Continue optimizing cardiac medications PCI scheduled for Sunday Diuresis Oxygen supplementation Monitor labs, potassium today 3.9 BUN/creatinine normal Updated 05/18 Continue IV milrinone per cardiology Follow cardiology recommendations Continue optimizing cardiac medication for cardiogenic shock and acute systolic heart failure Continue to diurese Oxygen supplementation Monitor H&H Replace potassium Monitor creatinine GRICELDA DENNISON MD May 19, 2021 09:41
--- NOTE | 2021-05-19 09:54 | PDOC ---
SUKI [employer]OCK [employer] WORKER 05/19/21 0954: CARDIO Progress Notes Date and Time Date of Service 05/19/2021 Time of Evaluation 0930 Subjective Subjective: No Chest Pain, No shortness of breath, No Palpitations Vitals Vitals Vital Signs Date Time Temp Pulse Resp B/P (MAP) Pulse Ox O2 Delivery O2 Flow Rate FiO2 05/19/21 07:00 109 24 90/48 (62) 95 Nasal Cannula 2.0 05/19/21 04:00 98.7 98.7 Weight Weight [ ] Input and Output Intake and Output Intake and Output 05/19/21 07:00 Intake Total 1147.5 ml Output Total 2110 ml Balance -962.5 ml Intake Oral 720 ml IV Total 427.5 ml Output Urine Total 2110 ml Laboratory Labs Laboratory Tests Test 05/19/21 05:30 Heparin Anti-Xa Act, Unfractionated 0.48 IU/mL (0.30-0.70) Sodium Level 136 mmol/L (136-145) Potassium Level 3.9 mmol/L (3.5-5.1) Chloride Level 98 mmol/L (98-107) Carbon Dioxide Level 31 mmol/L (21-32) Anion Gap 7 (6-14) Blood Urea Nitrogen 14 mg/dL (8-26) Creatinine 0.9 mg/dL (0.7-1.3) Estimated GFR (Cockcroft-Gault) 82.7 Glucose Level 100 mg/dL (70-99) Calcium Level 7.5 mg/dL (8.5-10.1) Physical Exam HEENT: Neck Supple W Full Motion Chest: Symmetric LUNGS: Other (diminished bases) Heart: RRR (SR with PACs), other (2/6 systolic murmur ) Abdomen: Soft N/T Extremities: Other (1+ bilateral LE pitting edema) Neurology: alert, oriented, follow commands Assessment Assessment 1. Acute respiratory failure secondary to CHF 2. Acute on chronic systolic CHF; much better compensated following fluid offloading with Lasix gtt and milrinone 3. Severe ischemic cardiomyopathy, cardiogenic shock; Echo showed LVEF 25% with severe hypokinesis of mid to distal anterior and anteroseptal bryson and apical wall. Also moderate MR. RHC with volume overload, severe secondary pulmHTN. 4. NSTEMI; trop highest 16,603. EKG noted with anterolateral ST depression and lateral t-wave inversion, which was not present on prior EKG from 2019 5. CAD; [facility] with critical two-vessel disease with LM involvement. 6. Anemia; hgb 6.9 upon arrival. reports of intermittent hematochezia x2 months . s/p 2 units PRBC's. hgb now 7.6. no obvious bleeding 7. ASHA; cardiorenal. Improved. 8. H/o hypertension; remains low end, but adequate 9. Hyperlipidemia; statin 10. Carotid artery disease 11. Tobaccoism 12. Hypokalemia; replaced Recommendations Continue milrinone and heparin gtt. Start on plavix, Lasix PRN CBC today Add BB when BP consistently adequate No OSCAR/ARB with ASHA, hypotension High-dose statin CTS evaluation, although suspect he is too high risk for bypass Supportive care Will plan for high risk PCI of the LM/LAD and RCA once optimization. Justicifation of Admission Dx: Justifications for Admission: Justification of Admission Dx: Yes CHF: Hemodynamic Instability ME: Acute NSTEMI WES JEFF MD 05/20/21 0800: CARDIO Progress Notes Plan Plan Late entry for 05/19/2021 Patient seen and examined. Agree with above nurse practitioner note. Case discussed with the patient's daughter. We will plan for complex high risk PCI with atherectomy of the left main and RCA if able on Sunday or Sunday of next week. SUKI BROCK [employer]ENTION WORKER May 19, 2021 09:54 WES JEFF MD May 20, 2021 08:00
[2021-05-19] MEDS: CLOPIDOGREL BISULFATE 75 MG TABLET PO SCH (10:21)
[2021-05-19 10:26] LABS: HEMOGLOBIN 7.8 g/dL (13.0-17.5); RED BLOOD COUNT 2.89 x10^6/uL (4.30-5.70); RED CELL DISTRIBUTION WIDTH 17.1 % (11.5-14.5); WHITE BLOOD COUNT 9.9 x10^3/uL (4.0-11.0)
--- NOTE | 2021-05-19 10:38 | PDOC ---
Date of Service: DATE: 05/19/21 TIME: 10:35 Subjective: Subjective: No complaints, having heart procedure Sunday. Objective: Objective: D/w nurse - no GI concerns, no bleeding, plans for cath Sun. Vital Signs: Vital Signs Date Time Temp Pulse Resp B/P (MAP) Pulse Ox O2 Delivery O2 Flow Rate FiO2 05/19/21 07:00 109 24 90/48 (62) 95 Nasal Cannula 2.0 05/19/21 04:00 98.7 98.7 Labs: Laboratory Tests Test 05/19/21 05:30 White Blood Count 9.9 x10^3/uL Red Blood Count 2.89 x10^6/uL Hemoglobin 7.8 g/dL Hematocrit 25.0 % Mean Corpuscular Volume 87 fL Mean Corpuscular Hemoglobin 27 pg Mean Corpuscular Hemoglobin Concent 31 g/dL Red Cell Distribution Width 17.1 % Platelet Count 252 x10^3/uL Heparin Anti-Xa Act, Unfractionated 0.48 IU/mL Sodium Level 136 mmol/L Potassium Level 3.9 mmol/L Chloride Level 98 mmol/L Carbon Dioxide Level 31 mmol/L Anion Gap 7 Blood Urea Nitrogen 14 mg/dL Creatinine 0.9 mg/dL Estimated GFR (Cockcroft-Gault) 82.7 Glucose Level 100 mg/dL Calcium Level 7.5 mg/dL PE: GEN: NAD - up in chair eating breakfast LUNGS: diminished, NC 2L HEART: tachycardic ABD: S/ND/NT NEURO/PSYCH: A & O 3 A/P: CHF/resp failure, CAD, NSTEMI - plan for cath/stent next week? MANUELITO - stable Rectal bleeding - no recurrence -- Continue PPI and iron, observe. Justicifation of Admission Dx: Justifications for Admission: Justification of Admission Dx: Yes CHF: Hemodynamic Instability SD: Acute NSTEMI LIBERTAD BARCENAS May 19, 2021 10:38
--- NOTE | 2021-05-19 11:24 | PDOC ---
DATE OF SERVICE DATE: 05/19/21 TIME: 11:21 SUBJECTIVE ROS stable, No Chest Pain, No shortness of breath, No Palpitations OBJECTIVE Vital Signs Vital Signs Date Time Temp Pulse Resp B/P (MAP) Pulse Ox O2 Delivery O2 Flow Rate FiO2 05/19/21 07:00 109 24 90/48 (62) 95 Nasal Cannula 2.0 05/19/21 04:00 98.7 98.7 I & 0 Intake and Output 05/19/21 07:00 Intake Total 1147.5 ml Output Total 2110 ml Balance -962.5 ml Intake Oral 720 ml IV Total 427.5 ml Output Urine Total 2110 ml PHYSICAL EXAM Physical Exam General NAD HEEN OM moist, On O2 by NC Neck Supple Lungs Decreased at bases, Non labored CV S1S2 Abd Soft, NT Ext No LE edema Neuro Grossly normal, Moving all extremities No Johns placed , No CVA or SP tenderness Psych Cooperative Skin No Rash DIAGNOSIS/ASSESSMENT Assessment & Plan ASHA - Cardiorenal ; Baseline Creat Normal 0.7 in [address] ([address] [facility] records) , Resolved , Supportive care , Strict I/O, Voiding trial after johns dced avoid Nephrotoxins, maintain fluid balance HypoKalemia- Normal K Hypotension- BP low POA ; Hx of HTN. Improved Anemia-Hgb trended down to 6.9 POA .s/p 2 units PRBC's . GI following Acute respiratory failure secondary -secondary to cardiogenic shock and volume overload. Clinically Improved. Good response to Lasix gtt and Milrinone Acute on chronic CHF - LVGram - Acute on chronic systolic and diastolic heart failure. Off Lasix gtt Severe secondary pulmonary hypertension NSTEMI; trop 16,603. EKG changes and symptomatic POA. Heart Cath 05/16 - 2V CAD with left main involvement. Awaiting CTS eval CAD; CT chest with coronary artery calcifications Hematochezia- intermittent x2 months .Tsats very low . Recd PRBC x2 GI consulted Tobaccoism; encouraged cessation COMMENT/RELEVANT DATA Meds Current Medications Medications (Trade) Dose Ordered Sig/Layne Start Time Stop Time Status Last Admin Dose Admin Acetaminophen (Tylenol) 650 mg PRN Q6HRS PRN 05/15/21 17:00 Atorvastatin Calcium (Lipitor) 40 mg QHS 05/19/21 21:00 Atropine Sulfate (ATROPINE 0.5mg SYRINGE) 0.5 mg PRN Q5MIN PRN 4/3/22 22:00 Azithromycin 250 mg/Sodium Chloride 250 ml @ 250 mls/hr Q24H 05/15/21 20:00 05/18/21 20:46 250 MLS/HR Calcium Carbonate/ Glycine (Tums) 500 mg PRN Q3HRS PRN 05/15/21 17:00 Ceftriaxone Sodium (Rocephin) 1 gm Q24H 05/15/21 20:00 05/18/21 20:46 1 GM Clopidogrel Bisulfate (Plavix) 75 mg DAILYWBKFT 05/19/21 10:30 05/19/21 10:21 75 MG Dexmedetomidine HCl 400 mcg/ Sodium Chloride 100 ml @ 4.295 mls/ hr CONT PRN 05/15/21 22:00 05/15/21 22:25 4.295 MLS/HR Docusate Sodium (Colace) 100 mg BID 05/15/21 21:00 05/19/21 08:45 100 MG Fentanyl Citrate (Fentanyl 2ml Vial) 100 mcg 1X ONCE 05/16/21 14:00 05/16/21 14:14 DC 05/16/21 14:00 75 MCG Ferrous Sulfate (Feosol) 325 mg BIDAC 05/17/21 16:30 05/19/21 08:43 325 MG Furosemide (Lasix) 80 mg 1X ONCE 05/16/21 14:15 05/16/21 14:19 DC 05/16/21 15:30 80 MG Furosemide 100 mg/ Sodium Chloride 100 ml @ 5 mls/hr Q20H 05/16/21 14:30 05/17/21 09:45 DC 05/17/21 08:00 5 MLS/HR Heparin Sodium (Porcine) (Heparin Sodium) 2,100 unit PRN Q6HRS PRN 05/16/21 14:15 05/16/21 22:48 2,100 UNIT Heparin Sodium/ Dextrose 250 ml @ 10 mls/hr CONT PRN 05/16/21 14:15 05/19/21 05:30 10 MLS/HR Heparin Sodium/ Sodium Chloride (HEPARIN for ARTERIAL LINE FLUSH) 1,000 unit 1X ONCE 05/16/21 14:00 05/16/21 14:14 DC 05/16/21 14:00 1,000 UNIT Info (Anti-Coagulation Monitoring By Pharmacy) 1 each PRN DAILY PRN 05/17/21 11:15 05/17/21 11:18 1 EACH Info (CONTRAST GIVEN -- Rx MONITORING) 1 each PRN DAILY PRN 05/16/21 14:15 05/18/21 14:14 DC Info (Non-Icu Electrolyte Protocol) 1 ea PRN DAILY PRN 05/15/21 17:00 Iodixanol (Visipaque 320) 100 ml 1X ONCE 05/16/21 14:00 05/16/21 14:14 DC 05/16/21 14:00 38 ML Iohexol (Omnipaque 300 Mg/ml) 60 ml 1X ONCE 05/15/21 21:30 05/15/21 21:31 DC 05/15/21 21:51 60 ML Lactobacillus Rhamnosus (Culturelle) 1 cap BID 05/17/21 21:00 05/19/21 08:43 1 CAP Lidocaine HCl (Lidocaine 1% 20ml Vial) 20 ml 1X ONCE 05/16/21 14:00 05/16/21 14:14 DC 05/16/21 14:00 8 ML Lidocaine HCl (Xylocaine-Mpf 1% 2ml Vial) 2 ml 1X ONCE 05/16/21 14:00 05/16/21 14:14 DC 05/16/21 14:00 1 ML Lisinopril (Prinivil) 10 mg DAILY 05/16/21 09:00 05/16/21 10:07 DC Midazolam HCl (Versed) 2 mg 1X ONCE 05/16/21 14:00 05/16/21 14:14 DC 05/16/21 14:00 2.5 MG Milrinone Lactate/ Dextrose 100 ml @ 3.161 mls/ hr CONT PRN 05/16/21 14:15 05/19/21 00:47 3.161 MLS/HR Nitroglycerin (Nitroglycerin) 200 mcg 1X ONCE 05/16/21 14:00 05/16/21 14:14 DC 05/16/21 14:00 200 MCG Norepinephrine Bitartrate 8 mg/ Dextrose 258 ml @ 16.622 mls/ hr CONT PRN 05/16/21 00:30 Ondansetron HCl (Zofran) 4 mg PRN Q6HRS PRN 05/15/21 17:00 Pantoprazole Sodium (PROTONIX VIAL for IV PUSH) 40 mg DAILYAC 05/15/21 18:00 05/17/21 09:42 DC 05/17/21 08:00 40 MG Pantoprazole Sodium (Protonix) 40 mg DAILYAC 05/18/21 07:30 05/19/21 07:59 40 MG Perflutren Protein Type A Microsphe (Optison) 0.66 mg 1X ONCE 05/16/21 08:15 05/16/21 08:16 DC Potassium Bicarbonate (Potassium Effervescent Tablet) 40 meq 1X ONCE 05/17/21 13:00 05/17/21 13:01 DC 05/17/21 14:30 40 MEQ Potassium Chloride (Klor-Con) 40 meq 1X ONCE 05/18/21 08:00 05/18/21 08:01 DC 05/18/21 08:37 40 MEQ Senna/Docusate Sodium (Senna Plus) 1 tab BID 05/15/21 21:00 05/19/21 08:43 1 TAB Sodium Chloride 500 ml @ 500 mls/hr 1X PRN PRN 05/15/21 22:00 Sterile Water (WATER for RESP) 2,000 ml CONT PRN 05/15/21 17:15 Verapamil HCl (Verapamil) 2.5 mg 1X ONCE 05/16/21 14:00 05/16/21 14:14 DC 05/16/21 14:00 2.5 MG Lab Laboratory Tests Test 05/19/21 05:30 White Blood Count 9.9 x10^3/uL (4.0-11.0) Red Blood Count 2.89 x10^6/uL (4.30-5.70) Hemoglobin 7.8 g/dL (13.0-17.5) Hematocrit 25.0 % (39.0-53.0) Mean Corpuscular Volume 87 fL (79-100) Mean Corpuscular Hemoglobin 27 pg (25-35) Mean Corpuscular Hemoglobin Concent 31 g/dL (31-37) Red Cell Distribution Width 17.1 % (11.5-14.5) Platelet Count 252 x10^3/uL (140-400) Heparin Anti-Xa Act, Unfractionated 0.48 IU/mL (0.30-0.70) Sodium Level 136 mmol/L (136-145) Potassium Level 3.9 mmol/L (3.5-5.1) Chloride Level 98 mmol/L (98-107) Carbon Dioxide Level 31 mmol/L (21-32) Anion Gap 7 (6-14) Blood Urea Nitrogen 14 mg/dL (8-26) Creatinine 0.9 mg/dL (0.7-1.3) Estimated GFR (Cockcroft-Gault) 82.7 Glucose Level 100 mg/dL (70-99) Calcium Level 7.5 mg/dL (8.5-10.1) Results All relevant outside records, renal labs, imaging studies, telemetry/EKG's were reviewed. Justicifation of Admission Dx: Justifications for Admission: Justification of Admission Dx: Yes CHF: Hemodynamic Instability [place]: Acute NSTEMI KERRY MAGAÑA MD May 19, 2021 11:23
[2021-05-19 11:25] LABS: HEMATOCRIT 26.1 % (39.0-53.0); HEMOGLOBIN 8.1 g/dL (13.0-17.5); RED BLOOD COUNT 3.02 x10^6/uL (4.30-5.70); RED CELL DISTRIBUTION WIDTH 17.3 % (11.5-14.5); WHITE BLOOD COUNT 9.5 x10^3/uL (4.0-11.0)
--- NOTE | 2021-05-19 12:29 | PDOC ---
[employer] PROGRESS NOTE Date of Service DOS: DATE: 05/19/21 TIME: 12:28 Chief Complaint Chief Complaint Acute CT Status post cardiac cath yesterday with the following results; Conclusion 1. Acute on chronic systolic and diastolic heart failure 2. Severe secondary pulmonary hypertension 3. Mildly decreased cardiac output 4. Acute respiratory failure secondary to cardiogenic shock and volume overload 5. Two-vessel coronary artery disease with left main involvement CAD Hypertension Respiratory failure GI bleed Thrombocytopenia Fluid overload Acute on chronic systolic diastolic heart failure ASHA History of Present Illness History of Present Illness 05/19/2021 Patient seen and examined in the ICU He is up in the chair resting with no apparent distress Still on milrinone drip and heparin drip Going for PC I Sunday Discussed with case management Discussed with RN Chart reviewed 05/18/2021 Patient seen and examined in the ICU He is currently on a milrinone drip He also has a heparin drip Also has a [place]-Leanna Discussed with RN Chart reviewed Cardiology considering high risk PCI versus bypass 05/17/2021 Patient seen and examined in the ICU Went for cardiac cath yesterday Has a [place]-Leanna catheter Discussed with RN Discussed with case management Chart 05/17/2019 Patient seen and examined in the ICU He is scheduled to go to cardiac cath later today Discussed with RN Discussed with case management Chart review Vitals/I&O Vitals/I&O: Vital Signs Date Time Temp Pulse Resp B/P (MAP) Pulse Ox O2 Delivery O2 Flow Rate FiO2 05/19/21 07:00 109 24 90/48 (62) 95 Nasal Cannula 2.0 05/19/21 04:00 98.7 98.7 l I & O 05/18/21 05/18/21 05/19/21 15:00 23:00 07:00 Intake Total 600 ml 547.5 ml Output Total 310 ml 975 ml 825 ml Balance 290 ml -427.5 ml -825 ml Physical Exam General: Alert, Oriented X3, Cooperative, Other (pursed lip breathing) Heart: Regular rate, Normal S1, Normal S2, Other (systolic murmur 1/6) Lungs: Crackles Abdomen: Other (soft distension, no tenderness) Extremities: No clubbing, No cyanosis, Other (trace pedal edema) Skin: No rashes Labs Labs: Laboratory Tests Test 05/19/21 05:30 05/19/21 11:05 White Blood Count 9.9 x10^3/uL (4.0-11.0) 9.5 x10^3/uL (4.0-11.0) Red Blood Count 2.89 x10^6/uL (4.30-5.70) 3.02 x10^6/uL (4.30-5.70) Hemoglobin 7.8 g/dL (13.0-17.5) 8.1 g/dL (13.0-17.5) Hematocrit 25.0 % (39.0-53.0) 26.1 % (39.0-53.0) Mean Corpuscular Volume 87 fL (79-100) 86 fL (79-100) Mean Corpuscular Hemoglobin 27 pg (25-35) 27 pg (25-35) Mean Corpuscular Hemoglobin Concent 31 g/dL (31-37) 31 g/dL (31-37) Red Cell Distribution Width 17.1 % (11.5-14.5) 17.3 % (11.5-14.5) Platelet Count 252 x10^3/uL (140-400) 260 x10^3/uL (140-400) Heparin Anti-Xa Act, Unfractionated 0.48 IU/mL (0.30-0.70) Sodium Level 136 mmol/L (136-145) Potassium Level 3.9 mmol/L (3.5-5.1) Chloride Level 98 mmol/L (98-107) Carbon Dioxide Level 31 mmol/L (21-32) Anion Gap 7 (6-14) Blood Urea Nitrogen 14 mg/dL (8-26) Creatinine 0.9 mg/dL (0.7-1.3) Estimated GFR (Cockcroft-Gault) 82.7 Glucose Level 100 mg/dL (70-99) Calcium Level 7.5 mg/dL (8.5-10.1) Assessment and Plan Assessmemt and Plan Acute CT Status post cardiac cath CAD Hypertension Respiratory failure GI bleed Thrombocytopenia Fluid overload Acute on chronic systolic diastolic heart failure ASHA Plan ICU monitoring Going for high risk PCI Sunday and we certainly appreciate cardiology's help Cardiac meds per cardiology Continue milrinone drip Continue heparin drip Home meds DVT prophylaxis Full code Long-term prognosis guarded Appreciate subspecialist input Trend labs CC time 32 minutes Comment Review of Relevant I have reviewed the following items angelica (where applicable) has been applied. Medications: Current Medications Medications (Trade) Dose Ordered Sig/Layne Route PRN Reason Start Time Stop Time Status Last Admin Dose Admin Clopidogrel Bisulfate (Plavix) 75 mg DAILYWBKFT PO 05/19/21 10:30 05/19/21 10:21 Justifications for Admission Other Justification LUPE APPLE III DO May 19, 2021 12:29
[2021-05-19] MEDS: ANTI-COAG MONITOR BY PHARMACY. MC PRN (15:16)
[2021-05-19] MEDS: cefTRIAXone IV Push 1 GM VIAL. IVP SCH (21:05)
[2021-05-19] MEDS: ZOLPIDEM 5 MG TABLET. PO SCH (21:06)
[2021-05-19] MEDS: AZITHROMYCIN 250 MG in IV NORMAL SALINE 250ML 250 ML IV SCH (21:06)
[2021-05-19] MEDS: ATORVASTATIN CALCIUM 40 MG TABLET. PO SCH (21:06)
[2021-05-20] VITALS: BP 86/49
[2021-05-20] MEDS: HEPARIN 25,000UTS/250ML PREMIX 250 ML IV PRN (01:23)
[2021-05-20 04:42] VITALS: BP 98/61
--- NOTE | 2021-05-20 08:08 | PDOC ---
PULMONARY PROGRESS NOTES DATE: 05/20/21 TIME: 08:08 Subjective Overnight events patient reports no chest pain, shortness of breath is better, currently on IV milrinone Vitals Vital Signs Date Time Temp Pulse Resp B/P (MAP) Pulse Ox O2 Delivery O2 Flow Rate FiO2 05/20/21 04:42 98.0 96 23 98/61 (73) 96 Nasal Cannula 2.0 98.0 ROS: No Nausea, No Abdominal Pain, No Increase Cough General: Alert Lungs: Crackles Cardiovascular: S1, S2 Abdomen: Soft, Non-tender Neuro Exam: Alert, Oriented Extremities: No Edema Skin: Warm Labs Laboratory Tests Test 05/19/21 05:30 05/19/21 11:05 05/20/21 05:40 White Blood Count 9.9 x10^3/uL (4.0-11.0) 9.5 x10^3/uL (4.0-11.0) Red Blood Count 2.89 x10^6/uL (4.30-5.70) 3.02 x10^6/uL (4.30-5.70) Hemoglobin 7.8 g/dL (13.0-17.5) 8.1 g/dL (13.0-17.5) Hematocrit 25.0 % (39.0-53.0) 26.1 % (39.0-53.0) Mean Corpuscular Volume 87 fL (79-100) 86 fL (79-100) Mean Corpuscular Hemoglobin 27 pg (25-35) 27 pg (25-35) Mean Corpuscular Hemoglobin Concent 31 g/dL (31-37) 31 g/dL (31-37) Red Cell Distribution Width 17.1 % (11.5-14.5) 17.3 % (11.5-14.5) Platelet Count 252 x10^3/uL (140-400) 260 x10^3/uL (140-400) Heparin Anti-Xa Act, Unfractionated 0.48 IU/mL (0.30-0.70) 0.38 IU/mL (0.30-0.70) Sodium Level 136 mmol/L (136-145) Potassium Level 3.9 mmol/L (3.5-5.1) Chloride Level 98 mmol/L (98-107) Carbon Dioxide Level 31 mmol/L (21-32) Anion Gap 7 (6-14) Blood Urea Nitrogen 14 mg/dL (8-26) Creatinine 0.9 mg/dL (0.7-1.3) Estimated GFR (Cockcroft-Gault) 82.7 Glucose Level 100 mg/dL (70-99) Calcium Level 7.5 mg/dL (8.5-10.1) Laboratory Tests Test 05/19/21 11:05 05/20/21 05:40 White Blood Count 9.5 x10^3/uL (4.0-11.0) Red Blood Count 3.02 x10^6/uL (4.30-5.70) Hemoglobin 8.1 g/dL (13.0-17.5) Hematocrit 26.1 % (39.0-53.0) Mean Corpuscular Volume 86 fL (79-100) Mean Corpuscular Hemoglobin 27 pg (25-35) Mean Corpuscular Hemoglobin Concent 31 g/dL (31-37) Red Cell Distribution Width 17.3 % (11.5-14.5) Platelet Count 260 x10^3/uL (140-400) Heparin Anti-Xa Act, Unfractionated 0.38 IU/mL (0.30-0.70) Medications Active Scripts Medications Dose Route/Sig Max Daily Dose Days Date Category Dose Instructions Colace (Docusate Sodium) 100 Mg Capsule 1 Cap PO BID 11/18/15 Reported Coumadin (Warfarin Sodium) 3 Mg Tablet 1 Tab PO DAILY 11/18/15 Reported Ferrous Sulfate 325 Mg Tablet 325 Mg PO 10/29/15 Reported Next dose tomorrow 11/19/15 09 am. Viagra (Sildenafil Citrate) 100 Mg Tablet 100 Mg PO ONCE 10/29/15 Reported Resume prior to hospitalization. Atorvastatin Calcium 10 Mg Tablet 10 Mg PO HS 10/29/15 Reported Next dose tonight at bed time. Lisinopril 20 Mg Tablet 10 Mg PO DAILY 04/08/15 Reported Next dose tomorrow 11/19/15 at 9 am. Impression . IMPRESSION: 1. Acute hypoxemic respiratory failure secondary to acute systolic heart failure. 2. Chronic obstructive pulmonary disease with exacerbation. 3. Hypertension. 4. Tobacco dependent. 5. Non-ST segment elevation myocardial infarction. 6. Acute blood loss anemia. Hemoglobin is 6.9 upon arrival, status post transfusion. 7. Acute kidney injury. 8. Hypotension, suspect hypovolemia, possibly cardiogenic shock. 9. Cardiomyopathy ejection fraction 25% 10. Coronary artery disease, with 90% LAD occlusion Cardiac catheterization Wedge 33 mmHg Cardiac output 4.2 L/min, cardiac index 2.1 PA saturation 48% FA saturation 88% on 10 L nasal cannula Coronary angiography: Left main is a large caliber calcified vessel with a distal 50% stenosis LAD is a large caliber calcified vessel with an ostial 95% stenosis D1 is a moderate caliber vessel with normal angiographic appearance Left circumflex is a moderate to large caliber vessel with mild luminal irregularities OM1 is a moderate caliber vessel with mild luminal irregularities RCA is a moderate to large caliber dominant vessel with a mid subtotal occlusion with [id number] collaterals noted. Conclusion 1. Acute on chronic systolic and diastolic heart failure 2. Severe secondary pulmonary hypertension 3. Mildly decreased cardiac output 4. Acute respiratory failure secondary to cardiogenic shock and volume overload 5. Two-vessel coronary artery disease with left main involvement Recommendations 1. Initiate patient on Lasix drip, milrinone drip and heparin drip 2. After stabilization we will assess the patient's risk status for possible complex PCI versus bypass surgery. Plan . Updated 05/18 Continue IV milrinone per cardiology Follow cardiology recommendations Continue optimizing cardiac medication for cardiogenic shock and acute systolic heart failure Continue to diurese Oxygen supplementation Monitor H&H Replace potassium Monitor creatinine GRICELDA DENNISON MD May 20, 2021 08:08
[2021-05-20 09:00] VITALS: BP 102/65
[2021-05-20] MEDS: SENNOSIDES/DOCUSATE 8.6/50MG TABLET. PO SCH ×2 (09:00→20:33)
[2021-05-20] MEDS: DOCUSATE SODIUM 100 MG CAPSULE. PO SCH ×2 (09:00→20:33)
[2021-05-20] MEDS: FERROUS SULFATE 325 MG TABLET. PO SCH ×2 (09:49→16:30)
[2021-05-20] MEDS: PANTOPRAZOLE 40 MG TABLET.DR. PO SCH (09:49)
[2021-05-20] MEDS: CLOPIDOGREL BISULFATE 75 MG TABLET PO SCH (09:49)
[2021-05-20] MEDS: LACTOBACILLUS RHAMNOSUS GG 1 CAPSULE. PO SCH ×2 (09:50→20:33)
--- NOTE | 2021-05-20 10:00 | PDOC ---
NEEMA ALVAREZ DINING ROOM CASHIER 05/20/21 1000: CARDIO Progress Notes Date and Time Date of Service 05/20/21 Time of Evaluation 1010 Subjective Subjective: No Chest Pain, No shortness of breath, No Palpitations Vitals Vitals Vital Signs Date Time Temp Pulse Resp B/P (MAP) Pulse Ox O2 Delivery O2 Flow Rate FiO2 05/20/21 04:42 98.0 96 23 98/61 (73) 96 Nasal Cannula 2.0 98.0 Weight Weight [ ] Input and Output Intake and Output Intake and Output 05/20/21 07:00 Intake Total 1741.34 ml Output Total 2705 ml Balance -963.66 ml Intake Oral 920 ml IV Total 821.34 ml Output Urine Total 2705 ml # Bowel Movements 1 Laboratory Labs Laboratory Tests Test 05/19/21 11:05 05/20/21 05:40 White Blood Count 9.5 x10^3/uL (4.0-11.0) Red Blood Count 3.02 x10^6/uL (4.30-5.70) Hemoglobin 8.1 g/dL (13.0-17.5) Hematocrit 26.1 % (39.0-53.0) Mean Corpuscular Volume 86 fL (79-100) Mean Corpuscular Hemoglobin 27 pg (25-35) Mean Corpuscular Hemoglobin Concent 31 g/dL (31-37) Red Cell Distribution Width 17.3 % (11.5-14.5) Platelet Count 260 x10^3/uL (140-400) Heparin Anti-Xa Act, Unfractionated 0.38 IU/mL (0.30-0.70) Physical Exam HEENT: Neck Supple W Full Motion Chest: Symmetric LUNGS: Other (diminished bases) Heart: RRR (SR with PACs), other (2/6 systolic murmur ) Abdomen: Soft N/T Extremities: Other (trace bilateral LE pitting edema) Neurology: alert, oriented, follow commands Assessment Assessment 1. Acute respiratory failure secondary to CHF 2. Acute on chronic systolic CHF; much better compensated following fluid offloading with Lasix gtt and milrinone 3. Severe ischemic cardiomyopathy, cardiogenic shock; Echo showed LVEF 25% with severe hypokinesis of mid to distal anterior and anteroseptal bryson and apical wall. Also moderate MR. RHC with volume overload, severe secondary pulmHTN. 4. NSTEMI; trop highest 16,603. EKG noted with anterolateral ST depression and lateral t-wave inversion, which was not present on prior EKG from 2019 5. CAD; [facility] with critical two-vessel disease with LM involvement. 6. Anemia; hgb 6.9 upon arrival. reports of intermittent hematochezia x2 months . s/p 2 units PRBC's. hgb stable 7. ASHA; cardiorenal. Improved. 8. H/o hypertension; remains low end, but adequate 9. Hyperlipidemia; statin 10. Carotid artery disease 11. Tobaccoism Recommendations Continue milrinone and heparin gtt Secondary prevention High dose stain, Plavix therapy Add BB when BP consistently adequate No OSCAR/ARB with ASHA, hypotension Lasix PRN Supportive care Will plan for high risk PCI of the LM/LAD and RCA, likely Sunday Justicifation of Admission Dx: Justifications for Admission: Justification of Admission Dx: Yes CHF: Hemodynamic Instability [place]: Acute NSTEMI WES JEFF MD 05/20/211929: CARDIO Progress Notes Plan Plan The patient was seen and interviewed as well as examined at the bedside. The chart was reviewed. The case was discussed. Agree with the plan of care. NEEMA ALVAREZ APRN May 20, 2021 10:00 WES JEFF MD May 20, 2021 19:30
--- NOTE | 2021-05-20 10:22 | PDOC ---
Date of Service: DATE: 05/20/21 TIME: 10:19 Subjective: Subjective: Says had blood in stool yesterday but didn't see it. Feeling fine. Objective: Objective: D/w nurse - received in report had "red stool," no other details. On heparin. Vital Signs: Vital Signs Date Time Temp Pulse Resp B/P (MAP) Pulse Ox O2 Delivery O2 Flow Rate FiO2 05/20/21 04:42 98.0 96 23 98/61 (73) 96 Nasal Cannula 2.0 98.0 Labs: Laboratory Tests Test 05/19/21 11:05 05/20/21 05:40 White Blood Count 9.5 x10^3/uL Red Blood Count 3.02 x10^6/uL Hemoglobin 8.1 g/dL Hematocrit 26.1 % Mean Corpuscular Volume 86 fL Mean Corpuscular Hemoglobin 27 pg Mean Corpuscular Hemoglobin Concent 31 g/dL Red Cell Distribution Width 17.3 % Platelet Count 260 x10^3/uL Heparin Anti-Xa Act, Unfractionated 0.38 IU/mL PE: GEN: NAD LUNGS: NC 2L, more clear HEART: RRR ABD: NABS, S/ND/NT NEURO/PSYCH: A & O 3, cheerful per usual A/P: CHF, CAD, NSTEMI MANUELITO - stable Rectal bleeding - ?recurred yesterday - details unclear -- Hgb recheck pending. Continue PPI and iron. Continue per cardiology. Justicifation of Admission Dx: Justifications for Admission: Justification of Admission Dx: Yes CHF: Hemodynamic Instability [place]: Acute NSTEMI LIBERTAD BARCENAS May 20, 2021 10:22
--- NOTE | 2021-05-20 11:49 | PDOC ---
DATE OF SERVICE DATE: 05/20/21 TIME: 11:44 SUBJECTIVE ROS stable, No Chest Pain, No shortness of breath, Says had some blood in the stool yesterday OBJECTIVE Vital Signs Vital Signs Date Time Temp Pulse Resp B/P (MAP) Pulse Ox O2 Delivery O2 Flow Rate FiO2 05/20/21 04:42 98.0 96 23 98/61 (73) 96 Nasal Cannula 2.0 98.0 I & 0 Intake and Output 05/20/21 07:00 Intake Total 1741.34 ml Output Total 2705 ml Balance -963.66 ml Intake Oral 920 ml IV Total 821.34 ml Output Urine Total 2705 ml # Bowel Movements 1 PHYSICAL EXAM Physical Exam General NAD HEEN OM moist, On O2 by NC Neck Supple Lungs Decreased at bases, Non labored CV S1S2 Abd Soft, NT Ext No LE edema Neuro Grossly normal, Moving all extremities No Johns placed , No CVA or SP tenderness Psych Cooperative Skin No Rash DIAGNOSIS/ASSESSMENT Assessment & Plan ASHA - Cardiorenal ; Baseline Creat Normal 0.7 in 2019 (per [facility] records) , Resolved , Supportive care , Strict I/O, Voiding trial after johns dced avoid Nephrotoxins, maintain fluid balance HypoKalemia- Normal K Hypotension- BP low POA ; Hx of HTN. Improved Anemia-Hgb trended down to 6.9 POA .s/p 2 units PRBC's . GI following Acute respiratory failure secondary -secondary to cardiogenic shock and volume overload. Clinically Improved. Good response to Lasix gtt and Milrinone Acute on chronic CHF - LVGram - Acute on chronic systolic and diastolic heart failure. Off Lasix gtt Severe secondary pulmonary hypertension NSTEMI; trop 16,603. EKG changes and symptomatic POA. Heart Cath 05/16 - 2V CAD with left main involvement. complex high risk PCI with atherectomy of the left main and RCA on Sunday or Sunday per cardiology CAD; CT chest with coronary artery calcifications Hematochezia- intermittent x2 months .Tsats very low . Recd PRBC x2 GI consulted Tobaccoism; encouraged cessation Will sign off COMMENT/RELEVANT DATA Meds Current Medications Medications (Trade) Dose Ordered Sig/Layne Start Time Stop Time Status Last Admin Dose Admin Acetaminophen (Tylenol) 650 mg PRN Q6HRS PRN 05/15/21 17:00 Atorvastatin Calcium (Lipitor) 40 mg QHS 05/19/21 21:00 05/19/21 21:06 40 MG Atropine Sulfate (ATROPINE 0.5mg SYRINGE) 0.5 mg PRN Q5MIN PRN 05/15/21 22:00 Azithromycin 250 mg/Sodium Chloride 250 ml @ 250 mls/hr Q24H 05/15/21 20:00 05/19/21 21:06 250 MLS/HR Calcium Carbonate/ Glycine (Tums) 500 mg PRN Q3HRS PRN 05/15/21 17:00 Ceftriaxone Sodium (Rocephin) 1 gm Q24H 05/15/21 20:00 05/19/21 21:05 1 GM Clopidogrel Bisulfate (Plavix) 75 mg [id number] 05/19/21 10:30 05/20/21 09:49 75 MG Dexmedetomidine HCl 400 mcg/ Sodium Chloride 100 ml @ 4.295 mls/ hr CONT PRN 05/15/21 22:00 05/15/21 22:25 4.295 MLS/HR Docusate Sodium (Colace) 100 mg BID 05/15/21 21:00 05/19/21 21:06 100 MG Fentanyl Citrate (Fentanyl 2ml Vial) 100 mcg 1X ONCE 05/16/21 14:00 05/16/21 14:14 DC 05/16/21 14:00 75 MCG Ferrous Sulfate (Feosol) 325 mg BIDAC 05/17/21 16:30 05/20/21 09:49 325 MG Furosemide (Lasix) 80 mg 1X ONCE 05/16/21 14:15 05/16/21 14:19 DC 05/16/21 15:30 80 MG Furosemide 100 mg/ Sodium Chloride 100 ml @ 5 mls/hr Q20H 05/16/21 14:30 05/17/21 09:45 DC 05/17/21 08:00 5 MLS/HR Heparin Sodium (Porcine) (Heparin Sodium) 2,100 unit PRN Q6HRS PRN 05/16/21 14:15 05/16/21 22:48 2,100 UNIT Heparin Sodium/ Dextrose 250 ml @ 10 mls/hr CONT PRN 05/16/21 14:15 05/20/21 01:23 10 MLS/HR Heparin Sodium/ Sodium Chloride (HEPARIN for ARTERIAL LINE FLUSH) 1,000 unit 1X ONCE 05/16/21 14:00 05/16/21 14:14 DC 05/16/21 14:00 1,000 UNIT Info (Anti-Coagulation Monitoring By Pharmacy) 1 each PRN DAILY PRN 05/17/21 11:15 05/19/21 15:16 1 EACH Info (CONTRAST GIVEN -- Rx MONITORING) 1 each PRN DAILY PRN 05/16/21 14:15 05/18/21 14:14 DC Info (Non-Icu Electrolyte Protocol) 1 ea PRN DAILY PRN 05/15/21 17:00 Iodixanol (Visipaque 320) 100 ml 1X ONCE 05/16/21 14:00 05/16/21 14:14 DC 05/16/21 14:00 38 ML Iohexol (Omnipaque 300 Mg/ml) 60 ml 1X ONCE 05/15/21 21:30 05/15/21 21:31 DC 05/15/21 21:51 60 ML Lactobacillus Rhamnosus (Culturelle) 1 cap BID 05/17/21 21:00 05/20/21 09:50 1 CAP Lidocaine HCl (Lidocaine 1% 20ml Vial) 20 ml 1X ONCE 05/16/21 14:00 05/16/21 14:14 DC 05/16/21 14:00 8 ML Lidocaine HCl (Xylocaine-Mpf 1% 2ml Vial) 2 ml 1X ONCE 05/16/21 14:00 05/16/21 14:14 DC 05/16/21 14:00 1 ML Lisinopril (Prinivil) 10 mg DAILY 05/16/21 09:00 05/16/21 10:07 DC Midazolam HCl (Versed) 2 mg 1X ONCE 05/16/21 14:00 05/16/21 14:14 DC 05/16/21 14:00 2.5 MG Milrinone Lactate/ Dextrose 100 ml @ 3.161 mls/ hr CONT PRN 05/16/21 14:15 05/19/21 00:47 3.161 MLS/HR Nitroglycerin (Nitroglycerin) 200 mcg 1X ONCE 05/16/21 14:00 05/16/21 14:14 DC 05/16/21 14:00 200 MCG Norepinephrine Bitartrate 8 mg/ Dextrose 258 ml @ 16.622 mls/ hr CONT PRN 05/16/21 00:30 Ondansetron HCl (Zofran) 4 mg PRN Q6HRS PRN 05/15/21 17:00 Pantoprazole Sodium (PROTONIX VIAL for IV PUSH) 40 mg DAILYAC 05/15/21 18:00 05/17/21 09:42 DC 05/17/21 08:00 40 MG Pantoprazole Sodium (Protonix) 40 mg DAILYAC 05/18/21 07:30 05/20/21 09:49 40 MG Perflutren Protein Type A Microsphe (Optison) 0.66 mg 1X ONCE 05/16/21 08:15 05/16/21 08:16 DC Potassium Bicarbonate (Potassium Effervescent Tablet) 40 meq 1X ONCE 05/17/21 13:00 05/17/21 13:01 DC 05/17/21 14:30 40 MEQ Potassium Chloride (Klor-Con) 40 meq 1X ONCE 05/18/21 08:00 05/18/21 08:01 DC 05/18/21 08:37 40 MEQ Senna/Docusate Sodium (Senna Plus) 1 tab BID 05/15/21 21:00 05/19/21 21:06 1 TAB Sodium Chloride 500 ml @ 500 mls/hr 1X PRN PRN 05/15/21 22:00 Sterile Water (WATER for RESP) 2,000 ml CONT PRN 05/15/21 17:15 Verapamil HCl (Verapamil) 2.5 mg 1X ONCE 05/16/21 14:00 05/16/21 14:14 DC 05/16/21 14:00 2.5 MG Zolpidem Tartrate (Ambien) 5 mg HS 05/19/21 21:00 05/19/21 21:06 5 MG Lab Laboratory Tests Test 05/20/21 05:40 Heparin Anti-Xa Act, Unfractionated 0.38 IU/mL (0.30-0.70) Results All relevant outside records, renal labs, imaging studies, telemetry/EKG's were reviewed. Justicifation of Admission Dx: Justifications for Admission: Justification of Admission Dx: Yes CHF: Hemodynamic Instability RI: Acute NSTEMI KERRY MAGAÑA MD May 20, 2021 11:48
[2021-05-20 12:00] VITALS: BP 97/53
--- NOTE | 2021-05-20 12:06 | PDOC ---
[employer] PROGRESS NOTE Date of Service DOS: DATE: 05/20/21 TIME: 12:06 Chief Complaint Chief Complaint Acute [place] Status post cardiac cath yesterday with the following results; Conclusion 1. Acute on chronic systolic and diastolic heart failure 2. Severe secondary pulmonary hypertension 3. Mildly decreased cardiac output 4. Acute respiratory failure secondary to cardiogenic shock and volume overload 5. Two-vessel coronary artery disease with left main involvement CAD Hypertension Respiratory failure GI bleed Thrombocytopenia Fluid overload Acute on chronic systolic diastolic heart failure ASHA History of Present Illness History of Present Illness 05/20/2021 Patient seen and examined Discussed with RN Chart reviewed He is going for PCI Sunday05/19/2021 Patient seen and examined in the ICU He is up in the chair resting with no apparent distress Still on milrinone drip and heparin drip Going for PC I Sunday Discussed with case management Discussed with RN Chart reviewed 05/18/2021 Patient seen and examined in the ICU He is currently on a milrinone drip He also has a heparin drip Also has a Elbert-Leanna Discussed with RN Chart reviewed Cardiology considering high risk PCI versus bypass 05/17/2021 Patient seen and examined in the ICU Went for cardiac cath yesterday Has a Elbert-Leanna catheter Discussed with RN Discussed with case management Chart 05/17/2019 Patient seen and examined in the ICU He is scheduled to go to cardiac cath later today Discussed with RN Discussed with case management Chart review Vitals/I&O Vitals/I&O: Vital Signs Date Time Temp Pulse Resp B/P (MAP) Pulse Ox O2 Delivery O2 Flow Rate FiO2 05/20/21 04:42 98.0 96 23 98/61 (73) 96 Nasal Cannula 2.0 98.0 I & O 05/19/21 05/19/21 05/20/21 15:00 23:00 07:00 Intake Total 440 ml 636.94 ml 664.4 ml Output Total 360 ml 1620 ml 725 ml Balance 80 ml -983.06 ml -60.6 ml Physical Exam General: Alert, Oriented X3, Cooperative, Other (pursed lip breathing) Heart: Regular rate, Normal S1, Normal S2, Other (systolic murmur 1/6) Lungs: Crackles Abdomen: Other (soft distension, no tenderness) Extremities: No clubbing, No cyanosis, Other (trace pedal edema) Skin: No rashes Labs Labs: Laboratory Tests Test 05/20/21 05:40 Heparin Anti-Xa Act, Unfractionated 0.38 IU/mL (0.30-0.70) Assessment and Plan Assessmemt and Plan Acute GA Status post cardiac cath CAD Hypertension Respiratory failure GI bleed Thrombocytopenia Fluid overload Acute on chronic systolic diastolic heart failure ASHA Plan ICU monitoring Going for high risk PCI Sunday and we certainly appreciate cardiology's help Cardiac meds per cardiology Continue milrinone drip Continue heparin drip Home meds DVT prophylaxis Full code Long-term prognosis guarded Appreciate subspecialist input Trend labs Comment Review of Relevant I have reviewed the following items angelica (where applicable) has been applied. Medications: Current Medications Medications (Trade) Dose Ordered Sig/Layne Route PRN Reason Start Time Stop Time Status Last Admin Dose Admin Atorvastatin Calcium (Lipitor) 40 mg QHS PO 05/19/21 21:00 05/19/21 21:06 Zolpidem Tartrate (Ambien) 5 mg HS PO 05/19/21 21:00 05/19/21 21:06 Justifications for Admission Other Justification LUPE APPLE III DO May 20, 2021 12:06
[2021-05-20 13:43] LABS: HEMATOCRIT 25.3 % (39.0-53.0); HEMOGLOBIN 7.9 g/dL (13.0-17.5); RED BLOOD COUNT 2.93 x10^6/uL (4.30-5.70); RED CELL DISTRIBUTION WIDTH 17.2 % (11.5-14.5); WHITE BLOOD COUNT 7.9 x10^3/uL (4.0-11.0)
[2021-05-20] MEDS: ANTI-COAG MONITOR BY PHARMACY. MC PRN (15:04)
[2021-05-20 19:44] VITALS: BP 114/59
[2021-05-20] MEDS: cefTRIAXone IV Push 1 GM VIAL. IVP SCH (20:32)
[2021-05-20] MEDS: ATORVASTATIN CALCIUM 40 MG TABLET. PO SCH (20:33)
[2021-05-20] MEDS: AZITHROMYCIN 250 MG in IV NORMAL SALINE 250ML 250 ML IV SCH (20:33)
[2021-05-20] MEDS: ZOLPIDEM 5 MG TABLET. PO SCH (20:33)
[2021-05-21] VITALS (7 sets, daily range): BP systolic 108–141; BP diastolic 61–82
--- NOTE | 2021-05-21 07:15 | PDOC ---
PROGRESS NOTES Date of Service: DATE: 05/21/21 TIME: 07:15 Subjective Subjective Denied any chest pain Objective Objective Vital Signs Date Time Temp Pulse Resp B/P (MAP) Pulse Ox O2 Delivery O2 Flow Rate FiO2 05/21/21 05:00 98.3 97 20 131/82 (98) 95 Nasal Cannula 2.0 98.3 Intake and Output 05/21/21 07:00 Intake Total 2139.2 ml Output Total 2875 ml Balance -735.8 ml Intake Oral 1720 ml IV Total 419.2 ml Output Urine Total 2875 ml Physical Exam Abdomen: Other (soft distension, no tenderness) Heart: Regular rate, Normal S1, Normal S2, Other (systolic murmur 1/6) Extremities: No clubbing, No cyanosis, Other (trace pedal edema) General: Alert, Oriented X3, Cooperative, Other (pursed lip breathing) HEENT: PERRLA, Mucous membr. moist/pink Lungs: Other (distant breath sounds anteriorly, increased AP diameter) MUSCULOSKELETAL: No joint tenderness, No deformity Neuro: Normal speech, Sensation intact Psych/Mental Status: Mental status NL, Mood NL Skin: No rashes Assessment Assessment 1. Acute respiratory failure secondary to CHF 2. Acute on chronic systolic CHF; much better compensated following fluid offloading with Lasix gtt and milrinone 3. Severe ischemic cardiomyopathy, cardiogenic shock; Echo showed LVEF 25% with severe hypokinesis of mid to distal anterior and anteroseptal bryson and apical wall. Also moderate MR. RHC with volume overload, severe secondary pulmHTN. 4. NSTEMI; trop highest 16,603. EKG noted with anterolateral ST depression and lateral t-wave inversion, which was not present on prior EKG from 2019 5. CAD; [facility] with critical two-vessel disease with LM involvement. 6. Anemia; hgb 6.9 upon arrival. reports of intermittent hematochezia x2 months . s/p 2 units PRBC's. hgb stable 7. ASHA; cardiorenal. Improved. 8. H/o hypertension; remains low end, but adequate 9. Hyperlipidemia; statin 10. Carotid artery disease 11. Tobaccoism Recommendations Continue milrinone gtt. Start beta-blockers. Secondary prevention High dose stain, Plavix therapy No OSCAR/ARB with ASHA, hypotension Lasix PRN Supportive care Plan for high risk PCI of the LM/LAD and RCA, likely Sunday Comment Review of Relevant I have reviewed the following items angelica (where applicable) has been applied. Labs Laboratory Tests Test 05/20/21 13:05 White Blood Count 7.9 x10^3/uL (4.0-11.0) Red Blood Count 2.93 x10^6/uL (4.30-5.70) Hemoglobin 7.9 g/dL (13.0-17.5) Hematocrit 25.3 % (39.0-53.0) Mean Corpuscular Volume 86 fL (79-100) Mean Corpuscular Hemoglobin 27 pg (25-35) Mean Corpuscular Hemoglobin Concent 31 g/dL (31-37) Red Cell Distribution Width 17.2 % (11.5-14.5) Platelet Count 251 x10^3/uL (140-400) Vitals/I & O Vital Sign - Last 24 Hours 05/20/21 05/20/21 05/20/21 05/20/21 08:00 09:00 12:00 12:00 Temp 98.6 98.6 Pulse 94 97 Resp 19 25 B/P (MAP) 102/65 (77) 97/53 (68) Pulse Ox 97 O2 Delivery Nasal Cannula Nasal Cannula Nasal Cannula Nasal Cannula O2 Flow Rate 2.0 2.0 2.0 2.0 05/20/21 05/20/21 05/20/21 05/20/21 16:00 19:44 20:00 21:00 Temp 98.6 98.6 Pulse 103 99 Resp 20 20 B/P (MAP) 114/59 (77) Pulse Ox 96 97 O2 Delivery Nasal Cannula Nasal Cannula Nasal Cannula Nasal Cannula O2 Flow Rate 2.0 2.0 2.0 2.0 05/21/21 05/21/21 05/21/21 05/21/21 00:00 00:00 04:00 05:00 Temp 98.6 98.3 98.6 98.3 Pulse 94 97 Resp 20 20 B/P (MAP) 108/64 (79) 131/82 (98) Pulse Ox 94 95 O2 Delivery Nasal Cannula Nasal Cannula Nasal Cannula Nasal Cannula O2 Flow Rate 2.0 2.0 2.0 2.0 Intake and Output 05/20/21 05/20/21 05/21/21 15:00 23:00 07:00 Intake Total 850 ml 870 ml 419.2 ml Output Total 1050 ml 1125 ml 700 ml Balance -200 ml -255 ml -280.8 ml GERRI TORRES MD May 21, 2021 07:15
[2021-05-21] MEDS: CLOPIDOGREL BISULFATE 75 MG TABLET PO SCH ×2 (08:00→12:20)
[2021-05-21] MEDS: SENNOSIDES/DOCUSATE 8.6/50MG TABLET. PO SCH ×2 (08:13→20:41)
[2021-05-21] MEDS: DOCUSATE SODIUM 100 MG CAPSULE. PO SCH ×2 (08:13→20:40)
[2021-05-21] MEDS: FERROUS SULFATE 325 MG TABLET. PO SCH ×2 (08:13→15:59)
[2021-05-21] MEDS: PANTOPRAZOLE 40 MG TABLET.DR. PO SCH (08:13)
[2021-05-21] MEDS: LACTOBACILLUS RHAMNOSUS GG 1 CAPSULE. PO SCH ×2 (08:13→20:40)
--- NOTE | 2021-05-21 08:36 | PDOC ---
PULMONARY PROGRESS NOTES DATE: 05/21/21 TIME: 08:35 Subjective Patient feels better No overnight events patient reports no chest pain, shortness of breath is better, currently on IV milrinone Vitals Vital Signs Date Time Temp Pulse Resp B/P (MAP) Pulse Ox O2 Delivery O2 Flow Rate FiO2 05/21/21 08:00 99.2 94 12 123/67 (85) 97 Room Air 99.2 05/21/21 05:00 2.0 ROS: No Nausea, No Abdominal Pain, No Increase Cough General: Alert Lungs: Crackles Cardiovascular: S1, S2 Abdomen: Soft, Non-tender Neuro Exam: Alert, Oriented Extremities: No Edema Skin: Warm Labs Laboratory Tests Test 05/19/21 11:05 05/20/21 05:40 05/20/21 13:05 05/21/21 06:05 White Blood Count 9.5 x10^3/uL (4.0-11.0) 7.9 x10^3/uL (4.0-11.0) Red Blood Count 3.02 x10^6/uL (4.30-5.70) 2.93 x10^6/uL (4.30-5.70) Hemoglobin 8.1 g/dL (13.0-17.5) 7.9 g/dL (13.0-17.5) Hematocrit 26.1 % (39.0-53.0) 25.3 % (39.0-53.0) Mean Corpuscular Volume 86 fL (79-100) 86 fL (79-100) Mean Corpuscular Hemoglobin 27 pg (25-35) 27 pg (25-35) Mean Corpuscular Hemoglobin Concent 31 g/dL (31-37) 31 g/dL (31-37) Red Cell Distribution Width 17.3 % (11.5-14.5) 17.2 % (11.5-14.5) Platelet Count 260 x10^3/uL (140-400) 251 x10^3/uL (140-400) Heparin Anti-Xa Act, Unfractionated 0.38 IU/mL (0.30-0.70) > 1.10 IU/mL (0.30-0.70) Laboratory Tests Test 05/20/21 13:05 05/21/21 06:05 White Blood Count 7.9 x10^3/uL (4.0-11.0) Red Blood Count 2.93 x10^6/uL (4.30-5.70) Hemoglobin 7.9 g/dL (13.0-17.5) Hematocrit 25.3 % (39.0-53.0) Mean Corpuscular Volume 86 fL (79-100) Mean Corpuscular Hemoglobin 27 pg (25-35) Mean Corpuscular Hemoglobin Concent 31 g/dL (31-37) Red Cell Distribution Width 17.2 % (11.5-14.5) Platelet Count 251 x10^3/uL (140-400) Heparin Anti-Xa Act, Unfractionated > 1.10 IU/mL (0.30-0.70) Medications Active Scripts Medications Dose Route/Sig Max Daily Dose Days Date Category Dose Instructions Colace (Docusate Sodium) 100 Mg Capsule 1 Cap PO BID 11/18/15 Reported Coumadin (Warfarin Sodium) 3 Mg Tablet 1 Tab PO DAILY 11/18/15 Reported Ferrous Sulfate 325 Mg Tablet 325 Mg PO 10/29/15 Reported Next dose tomorrow 11/19/15 09 am. Viagra (Sildenafil Citrate) 100 Mg Tablet 100 Mg PO ONCE 10/29/15 Reported Resume prior to hospitalization. Atorvastatin Calcium 10 Mg Tablet 10 Mg PO HS 10/29/15 Reported Next dose tonight at bed time. Lisinopril 20 Mg Tablet 10 Mg PO DAILY 04/08/15 Reported Next dose tomorrow 11/19/15 at 9 am. Impression . IMPRESSION: 1. Acute hypoxemic respiratory failure secondary to acute systolic heart failure. 2. Chronic obstructive pulmonary disease with exacerbation. 3. Hypertension. 4. Tobacco dependent. 5. Non-ST segment elevation myocardial infarction. 6. Acute blood loss anemia. Hemoglobin is 6.9 upon arrival, status post transfusion. 7. Acute kidney injury. 8. Hypotension, suspect hypovolemia, possibly cardiogenic shock. 9. Cardiomyopathy ejection fraction 25% 10. Coronary artery disease, with 90% LAD occlusion Cardiac catheterization Wedge 33 mmHg Cardiac output 4.2 L/min, cardiac index 2.1 PA saturation 48% FA saturation 88% on 10 L nasal cannula Coronary angiography: Left main is a large caliber calcified vessel with a distal 50% stenosis LAD is a large caliber calcified vessel with an ostial 95% stenosis D1 is a moderate caliber vessel with normal angiographic appearance Left circumflex is a moderate to large caliber vessel with mild luminal irregularities OM1 is a moderate caliber vessel with mild luminal irregularities RCA is a moderate to large caliber dominant vessel with a mid subtotal occlusion with [id number] collaterals noted. Conclusion 1. Acute on chronic systolic and diastolic heart failure 2. Severe secondary pulmonary hypertension 3. Mildly decreased cardiac output 4. Acute respiratory failure secondary to cardiogenic shock and volume overload 5. Two-vessel coronary artery disease with left main involvement Recommendations 1. Initiate patient on Lasix drip, milrinone drip and heparin drip 2. After stabilization we will assess the patient's risk status for possible complex PCI versus bypass surgery. Plan . Updated 05/21 PCI Sunday Continue IV milrinone per cardiology Follow cardiology recommendations Continue optimizing cardiac medication for cardiogenic shock and acute systolic heart failure Continue to diurese Oxygen supplementation Monitor H&H Replace potassium Monitor creatinine GRICELDA DENNISON MD May 21, 2021 08:36
--- NOTE | 2021-05-21 11:41 | PDOC ---
[employer] PROGRESS NOTE Date of Service DOS: DATE: 05/21/21 TIME: 11:41 Chief Complaint Chief Complaint Acute [place] Status post cardiac cath yesterday with the following results; Conclusion 1. Acute on chronic systolic and diastolic heart failure 2. Severe secondary pulmonary hypertension 3. Mildly decreased cardiac output 4. Acute respiratory failure secondary to cardiogenic shock and volume overload 5. Two-vessel coronary artery disease with left main involvement CAD Hypertension Respiratory failure GI bleed Thrombocytopenia Fluid overload Acute on chronic systolic diastolic heart failure ASHA History of Present Illness History of Present Illness 05/21/2021 Patient seen and examined in the ICU Discussed with RN Chart reviewed We are awaiting cardiac cath Sunday05/20/2021 Patient seen and examined Discussed with RN Chart reviewed He is going for PCI Sunday05/19/2021 Patient seen and examined in the ICU He is up in the chair resting with no apparent distress Still on milrinone drip and heparin drip Going for PC I Sunday Discussed with case management Discussed with RN Chart reviewed 05/18/2021 Patient seen and examined in the ICU He is currently on a milrinone drip He also has a heparin drip Also has a Maywood-Leanna Discussed with RN Chart reviewed Cardiology considering high risk PCI versus bypass 05/17/2021 Patient seen and examined in the ICU Went for cardiac cath yesterday Has a Maywood-Leanna catheter Discussed with RN Discussed with case management Chart 05/17/2019 Patient seen and examined in the ICU He is scheduled to go to cardiac cath later today Discussed with RN Discussed with case management Chart review Vitals/I&O Vitals/I&O: Vital Signs Date Time Temp Pulse Resp B/P (MAP) Pulse Ox O2 Delivery O2 Flow Rate FiO2 05/21/21 08:00 Room Air 05/21/21 08:00 99.2 94 12 123/67 (85) 97 99.2 05/21/21 05:00 2.0 I & O 05/20/21 05/20/21 05/21/21 15:00 23:00 07:00 Intake Total 850 ml 870 ml 419.2 ml Output Total 1050 ml 1125 ml 700 ml Balance -200 ml -255 ml -280.8 ml Physical Exam General: Alert, Oriented X3, Cooperative, Other (pursed lip breathing) Heart: Regular rate, Normal S1, Normal S2, Other (systolic murmur /6) Lungs: Crackles Abdomen: Other (soft distension, no tenderness) Extremities: No clubbing, No cyanosis, Other (trace pedal edema) Skin: No rashes Labs Labs: Laboratory Tests Test 05/20/21 13:05 05/21/21 06:05 White Blood Count 7.9 x10^3/uL (4.0-11.0) Red Blood Count 2.93 x10^6/uL (4.30-5.70) Hemoglobin 7.9 g/dL (13.0-17.5) Hematocrit 25.3 % (39.0-53.0) Mean Corpuscular Volume 86 fL (79-100) Mean Corpuscular Hemoglobin 27 pg (25-35) Mean Corpuscular Hemoglobin Concent 31 g/dL (31-37) Red Cell Distribution Width 17.2 % (11.5-14.5) Platelet Count 251 x10^3/uL (140-400) Heparin Anti-Xa Act, Unfractionated > 1.10 IU/mL (0.30-0.70) Assessment and Plan Assessmemt and Plan Acute [place] Status post cardiac cath CAD Hypertension Respiratory failure GI bleed Thrombocytopenia Fluid overload Acute on chronic systolic diastolic heart failure ASHA Plan ICU monitoring Going for high risk PCI Sunday and we certainly appreciate cardiology's help Cardiac meds per cardiology Continue milrinone drip Continue heparin drip Home meds DVT prophylaxis Full code Long-term prognosis guarded Appreciate subspecialist input Trend labs Comment Review of Relevant I have reviewed the following items angelica (where applicable) has been applied. Justifications for Admission Other Justification LUPE APPLE III DO May 21, 2021 11:41
[2021-05-21] MEDS: MILRINONE 20MG/100ML PREMIX 100 ML IV PRN (15:56)
[2021-05-21] MEDS: CARVEDILOL 3.125 MG TABLET. PO SCH (15:59)
[2021-05-21] MEDS: AZITHROMYCIN 250 MG in IV NORMAL SALINE 250ML 250 ML IV SCH (20:39)
[2021-05-21] MEDS: cefTRIAXone IV Push 1 GM VIAL. IVP SCH (20:40)
[2021-05-21] MEDS: ATORVASTATIN CALCIUM 40 MG TABLET. PO SCH (20:40)
[2021-05-21] MEDS: ZOLPIDEM 5 MG TABLET. PO SCH (20:40)
[2021-05-22 03:00] VITALS: BP 133/64
[2021-05-22 07:00] VITALS: BP 146/75
[2021-05-22] MEDS: CLOPIDOGREL BISULFATE 75 MG TABLET PO SCH (08:34)
[2021-05-22] MEDS: PANTOPRAZOLE 40 MG TABLET.DR. PO SCH (08:35)
[2021-05-22] MEDS: CARVEDILOL 3.125 MG TABLET. PO SCH ×2 (08:35→17:23)
[2021-05-22] MEDS: FERROUS SULFATE 325 MG TABLET. PO SCH ×2 (08:35→17:23)
[2021-05-22] MEDS: DOCUSATE SODIUM 100 MG CAPSULE. PO SCH ×2 (08:35→21:28)
[2021-05-22] MEDS: LACTOBACILLUS RHAMNOSUS GG 1 CAPSULE. PO SCH ×2 (08:35→21:28)
[2021-05-22] MEDS: SENNOSIDES/DOCUSATE 8.6/50MG TABLET. PO SCH ×2 (08:35→21:00)
--- NOTE | 2021-05-22 09:21 | PDOC ---
PROGRESS NOTES Date of Service: DATE: 05/22/21 TIME: 09:21 Subjective Subjective Denied any chest pain or shortness of breath Objective Objective Vital Signs Date Time Temp Pulse Resp B/P (MAP) Pulse Ox O2 Delivery O2 Flow Rate FiO2 05/22/21 08:35 93 146/75 05/22/21 07:00 97.9 19 93 Room Air 97.9 05/21/21 20:00 2.0 Intake and Output 05/22/21 07:00 Intake Total 1161 ml Output Total 3350 ml Balance -2189 ml Intake Oral 760 ml IV Total 401 ml Output Urine Total 3350 ml # Bowel Movements 1 Physical Exam Abdomen: Other (soft distension, no tenderness) Heart: Regular rate, Normal S1, Normal S2, Other (systolic murmur 1/6) Extremities: No clubbing, No cyanosis, Other (trace pedal edema) General: Alert, Oriented X3, Cooperative, Other (pursed lip breathing) HEENT: PERRLA, Mucous membr. moist/pink Lungs: Other (distant breath sounds anteriorly, increased AP diameter) MUSCULOSKELETAL: No joint tenderness, No deformity Neuro: Normal speech, Sensation intact Psych/Mental Status: Mental status NL, Mood NL Skin: No rashes Assessment Assessment 1. Acute respiratory failure secondary to CHF 2. Acute on chronic systolic CHF; much better compensated following fluid offloading with Lasix gtt and milrinone 3. Severe ischemic cardiomyopathy, cardiogenic shock; Echo showed LVEF 25% with severe hypokinesis of mid to distal anterior and anteroseptal bryson and apical wall. Also moderate MR. RHC with volume overload, severe secondary pulmHTN. 4. NSTEMI; trop highest 16,603. EKG noted with anterolateral ST depression and lateral t-wave inversion, which was not present on prior EKG from 2019 5. CAD; [facility] with critical two-vessel disease with LM involvement. 6. Anemia; hgb 6.9 upon arrival. reports of intermittent hematochezia x2 months . s/p 2 units PRBC's. hgb stable 7. ASHA; cardiorenal. Improved. 8. H/o hypertension; remains low end, but adequate 9. Hyperlipidemia; statin 10. Carotid artery disease 11. Tobaccoism Recommendations Continue milrinone gtt. Secondary prevention High dose stain, Plavix therapy Continue beta-blockers. No OSCAR/ARB with ASHA, hypotension Lasix PRN Supportive care Plan for high risk PCI of the LM/LAD and RCA, on Sunday Comment Review of Relevant I have reviewed the following items angelica (where applicable) has been applied. Medications Current Medications Carvedilol (Coreg) 3.125 mg BIDWMEALS PO Last administered on 05/22/21at 08:35; Start 05/21/21 at 17:00 Vitals/I & O Vital Sign - Last 24 Hours 05/21/21 05/21/21 05/21/21 05/21/21 11:00 15:00 15:59 19:00 Temp 98.6 98.6 98.2 98.6 98.6 98.2 Pulse 82 95 95 93 Resp 16 12 18 B/P (MAP) 133/76 (95) 116/61 (79) 114/61 120/68 (85) Pulse Ox 92 95 94 O2 Delivery Room Air Room Air Room Air 05/21/21 05/21/21 05/22/21 05/22/21 20:00 23:00 03:00 07:00 Temp 98.5 98.4 97.9 98.5 98.4 97.9 Pulse 94 103 93 Resp 18 20 19 B/P (MAP) 141/63 (89) 133/64 (87) 146/75 (98) Pulse Ox 93 90 93 O2 Delivery Nasal Cannula Room Air Room Air Room Air O2 Flow Rate 2.0 05/22/21 08:35 Pulse 93 B/P (MAP) 146/75 Intake and Output 05/21/21 05/21/21 05/22/21 15:00 23:00 07:00 Intake Total 360 ml 495 ml 306 ml Output Total 200 ml 2250 ml 900 ml Balance 160 ml -1755 ml -594 ml GERRI TORRES MD May 22, 2021 09:21
[2021-05-22 11:00] VITALS: BP 119/57
--- NOTE | 2021-05-22 11:31 | PDOC ---
PULMONARY PROGRESS NOTES DATE: 05/22/21 TIME: 11:30 Subjective Patient off of oxygen, sitting up in a chair, no chest pain no pressure on room air Vitals Vital Signs Date Time Temp Pulse Resp B/P (MAP) Pulse Ox O2 Delivery O2 Flow Rate FiO2 05/22/21 08:35 93 146/75 05/22/21 08:00 Room Air 05/22/21 07:00 97.9 19 93 97.9 05/21/21 20:00 2.0 ROS: No Nausea, No Abdominal Pain, No Increase Cough General: Alert Lungs: Crackles Cardiovascular: S1, S2 Abdomen: Soft, Non-tender Neuro Exam: Alert, Oriented Extremities: No Edema Skin: Warm Labs Laboratory Tests Test 05/20/21 13:05 05/21/21 06:05 White Blood Count 7.9 x10^3/uL (4.0-11.0) Red Blood Count 2.93 x10^6/uL (4.30-5.70) Hemoglobin 7.9 g/dL (13.0-17.5) Hematocrit 25.3 % (39.0-53.0) Mean Corpuscular Volume 86 fL (79-100) Mean Corpuscular Hemoglobin 27 pg (25-35) Mean Corpuscular Hemoglobin Concent 31 g/dL (31-37) Red Cell Distribution Width 17.2 % (11.5-14.5) Platelet Count 251 x10^3/uL (140-400) Heparin Anti-Xa Act, Unfractionated > 1.10 IU/mL (0.30-0.70) Medications Active Scripts Medications Dose Route/Sig Max Daily Dose Days Date Category Dose Instructions Colace (Docusate Sodium) 100 Mg Capsule 1 Cap PO BID 11/18/15 Reported Coumadin (Warfarin Sodium) 3 Mg Tablet 1 Tab PO DAILY 11/18/15 Reported Ferrous Sulfate 325 Mg Tablet 325 Mg PO 10/29/15 Reported Next dose tomorrow 11/19/15 09 am. Viagra (Sildenafil Citrate) 100 Mg Tablet 100 Mg PO ONCE 10/29/15 Reported Resume prior to hospitalization. Atorvastatin Calcium 10 Mg Tablet 10 Mg PO HS 10/29/15 Reported Next dose tonight at bed time. Lisinopril 20 Mg Tablet 10 Mg PO DAILY 04/08/15 Reported Next dose tomorrow 11/19/15 at 9 am. Impression . IMPRESSION: 1. Acute hypoxemic respiratory failure secondary to acute systolic heart failure. 2. Chronic obstructive pulmonary disease with exacerbation. 3. Hypertension. 4. Tobacco dependent. 5. Non-ST segment elevation myocardial infarction. 6. Acute blood loss anemia. Hemoglobin is 6.9 upon arrival, status post transfusion. 7. Acute kidney injury. 8. Hypotension, suspect hypovolemia, possibly cardiogenic shock. 9. Cardiomyopathy ejection fraction 25% 10. Coronary artery disease, with 90% LAD occlusion Cardiac catheterization Wedge 33 mmHg Cardiac output 4.2 L/min, cardiac index 2.1 PA saturation 48% FA saturation 88% on 10 L nasal cannula Coronary angiography: Left main is a large caliber calcified vessel with a distal 50% stenosis LAD is a large caliber calcified vessel with an ostial 95% stenosis D1 is a moderate caliber vessel with normal angiographic appearance Left circumflex is a moderate to large caliber vessel with mild luminal irregularities OM1 is a moderate caliber vessel with mild luminal irregularities RCA is a moderate to large caliber dominant vessel with a mid subtotal occlusion with [id number] collaterals noted. Conclusion 1. Acute on chronic systolic and diastolic heart failure 2. Severe secondary pulmonary hypertension 3. Mildly decreased cardiac output 4. Acute respiratory failure secondary to cardiogenic shock and volume overload 5. Two-vessel coronary artery disease with left main involvement Recommendations 1. Initiate patient on Lasix drip, milrinone drip and heparin drip 2. After stabilization we will assess the patient's risk status for possible complex PCI versus bypass surgery. Plan . Updated 05/22 PCI per cardiology Currently on room air, respiratory status compensated Follow cardiology recommendations Continue optimizing cardiac medication for cardiogenic shock and acute systolic heart failure Continue to diurese Oxygen supplementation Monitor H&H Replace potassium Monitor creatinine GRICELDA DENNISON MD May 22, 2021 11:31
--- NOTE | 2021-05-22 14:50 | PDOC ---
[facility] PROGRESS NOTE Date of Service DOS: DATE: 05/22/21 TIME: 14:48 Chief Complaint Chief Complaint Acute OK Status post cardiac cath yesterday with the following results; Conclusion 1. Acute on chronic systolic and diastolic heart failure 2. Severe secondary pulmonary hypertension 3. Mildly decreased cardiac output 4. Acute respiratory failure secondary to cardiogenic shock and volume overload 5. Two-vessel coronary artery disease with left main involvement CAD Hypertension Respiratory failure GI bleed Thrombocytopenia Fluid overload Acute on chronic systolic diastolic heart failure ASHA History of Present Illness History of Present Illness 05/22/2021 Patient seen and examined with his daughter Liv who seems to be great support for him Chart review Discussed with RN He is awaiting his second cardiac cath on Sunday05/21/2021 Patient seen and examined in the ICU Discussed with RN Chart reviewed We are awaiting cardiac cath Sunday05/20/2021 Patient seen and examined Discussed with RN Chart reviewed He is going for PCI Sunday05/19/2021 Patient seen and examined in the ICU He is up in the chair resting with no apparent distress Still on milrinone drip and heparin drip Going for PC I Sunday Discussed with case management Discussed with RN Chart reviewed 05/18/2021 Patient seen and examined in the ICU He is currently on a milrinone drip He also has a heparin drip Also has a [place]-Leanna Discussed with RN Chart reviewed Cardiology considering high risk PCI versus bypass 05/17/2021 Patient seen and examined in the ICU Went for cardiac cath yesterday Has a [place]-Leanna catheter Discussed with RN Discussed with case management Chart 05/17/2019 Patient seen and examined in the ICU He is scheduled to go to cardiac cath later today Discussed with RN Discussed with case management Chart review Vitals/I&O Vitals/I&O: Vital Signs Date Time Temp Pulse Resp B/P (MAP) Pulse Ox O2 Delivery O2 Flow Rate FiO2 05/22/21 11:00 98.0 87 17 119/57 (77) 93 Room Air 98.0 05/21/21 20:00 2.0 I & O 05/21/21 05/21/21 05/22/21 15:00 23:00 07:00 Intake Total 360 ml 495 ml 306 ml Output Total 200 ml 2250 ml 900 ml Balance 160 ml -1755 ml -594 ml Physical Exam General: Alert, Oriented X3, Cooperative, Other (pursed lip breathing) Heart: Regular rate, Normal S1, Normal S2, Other (systolic murmur 1/6) Lungs: Crackles Abdomen: Other (soft distension, no tenderness) Extremities: No clubbing, No cyanosis, Other (trace pedal edema) Skin: No rashes Assessment and Plan Assessmemt and Plan Acute OK with cardiac cath showing critical two-vessel disease with left main involvement CAD Hypertension Respiratory failure GI bleed Thrombocytopenia Fluid overload Acute on chronic systolic diastolic heart failure ASHA His cardiac cath showed the following; Conclusion 1. Acute on chronic systolic and diastolic heart failure 2. Severe secondary pulmonary hypertension 3. Mildly decreased cardiac output 4. Acute respiratory failure secondary to cardiogenic shock and volume overload 5. Two-vessel coronary artery disease with left main involvement Plan ICU monitoring We are awaiting his second cardiac cath which is scheduled for Sunday (this will be a high risk cath and we certainly appreciate cardiology intervention) For now continue the following; Levophed drip Milrinone drip Home meds ICU monitoring Cardiac meds per cardiology Continue milrinone drip Continue heparin drip Home meds Long-term prognosis guarded Appreciate subspecialist input Trend labs DVT prophylaxis Full code Comment Review of Relevant I have reviewed the following items angelica (where applicable) has been applied. Medications: Current Medications Medications (Trade) Dose Ordered Sig/Layne Route PRN Reason Start Time Stop Time Status Last Admin Dose Admin Carvedilol (Coreg) 3.125 mg BIDWMEALS PO 05/21/21 17:00 05/22/21 08:35 Justifications for Admission Other Justification LUPE APPLE III DO May 22, 2021 14:50
[2021-05-22 15:00] VITALS: BP 112/66
[2021-05-22] MEDS: AZITHROMYCIN 250 MG in IV NORMAL SALINE 250ML 250 ML IV SCH (19:59)
[2021-05-22] MEDS: cefTRIAXone IV Push 1 GM VIAL. IVP SCH (19:59)
[2021-05-22 20:00] VITALS: BP 137/72
[2021-05-22] MEDS: ZOLPIDEM 5 MG TABLET. PO SCH (21:28)
[2021-05-22] MEDS: ATORVASTATIN CALCIUM 40 MG TABLET. PO SCH (21:28)
[2021-05-22] MEDS: MILRINONE 20MG/100ML PREMIX 100 ML IV PRN (23:14)
[2021-05-23 04:00] VITALS: BP 165/67
[2021-05-23 08:00] VITALS: BP 134/64
[2021-05-23] MEDS: SENNOSIDES/DOCUSATE 8.6/50MG TABLET. PO SCH ×2 (08:53→20:53)
[2021-05-23] MEDS: FERROUS SULFATE 325 MG TABLET. PO SCH ×2 (08:53→18:32)
[2021-05-23] MEDS: DOCUSATE SODIUM 100 MG CAPSULE. PO SCH ×2 (08:54→20:52)
[2021-05-23] MEDS: CLOPIDOGREL BISULFATE 75 MG TABLET PO SCH (08:54)
[2021-05-23] MEDS: PANTOPRAZOLE 40 MG TABLET.DR. PO SCH (08:54)
[2021-05-23] MEDS: CARVEDILOL 3.125 MG TABLET. PO SCH ×2 (08:56→18:33)
[2021-05-23] MEDS: LACTOBACILLUS RHAMNOSUS GG 1 CAPSULE. PO SCH ×2 (09:01→20:53)
--- NOTE | 2021-05-23 09:33 | PDOC ---
Date of Service: DATE: 05/23/21 TIME: 09:30 Subjective: Subjective: No GI complaints. We talked about what he normally makes himself for breakfast at home - he likes breakfasts. Says he's having a procedure tomorrow. His daughter is having surgery today. Objective: Objective: No GI complaints per nurse. Vital Signs: Vital Signs Date Time Temp Pulse Resp B/P (MAP) Pulse Ox O2 Delivery O2 Flow Rate FiO2 05/23/21 08:56 99 134/64 05/23/21 04:00 98.4 18 94 Room Air 98.4 PE: GEN: NAD - up in chair having coffee LUNGS: CTAB HEART: RRR ABD: NABS, S/ND/NT NEURO/PSYCH: A & O 3 A/P: CHF, CAD, NSTEMI MANUELITO - stable (checked 05/20) - on PPI and iron Rectal bleeding - resolved -- Stable GI-vera. Continue per cardiology - seems plans for stents tomorrow. Justicifation of Admission Dx: Justifications for Admission: Justification of Admission Dx: Yes CHF: Hemodynamic Instability NH: Acute NSTEMI LIBERTAD BARCENAS May 23, 2021 09:33
--- NOTE | 2021-05-23 10:17 | PDOC ---
PULMONARY PROGRESS NOTES DATE: 05/23/21 TIME: 10:17 Subjective No overnight events patient off of oxygen, sitting up in a chair, no chest pain no pressure on room air Vitals Vital Signs Date Time Temp Pulse Resp B/P (MAP) Pulse Ox O2 Delivery O2 Flow Rate FiO2 05/23/21 08:56 99 134/64 05/23/21 04:00 98.4 18 94 Room Air 98.4 ROS: No Nausea, No Abdominal Pain, No Increase Cough General: Alert Lungs: Crackles Cardiovascular: S1, S2 Abdomen: Soft, Non-tender Neuro Exam: Alert, Oriented Extremities: No Edema Skin: Warm Medications Active Scripts Medications Dose Route/Sig Max Daily Dose Days Date Category Dose Instructions Colace (Docusate Sodium) 100 Mg Capsule 1 Cap PO BID 11/18/15 Reported Coumadin (Warfarin Sodium) 3 Mg Tablet 1 Tab PO DAILY 11/18/15 Reported Ferrous Sulfate 325 Mg Tablet 325 Mg PO 10/29/15 Reported Next dose tomorrow 11/19/15 09 am. Viagra (Sildenafil Citrate) 100 Mg Tablet 100 Mg PO ONCE 10/29/15 Reported Resume prior to hospitalization. Atorvastatin Calcium 10 Mg Tablet 10 Mg PO HS 10/29/15 Reported Next dose tonight at bed time. Lisinopril 20 Mg Tablet 10 Mg PO DAILY 04/08/15 Reported Next dose tomorrow 11/19/15 at 9 am. Impression . IMPRESSION: 1. Acute hypoxemic respiratory failure secondary to acute systolic heart failure. 2. Chronic obstructive pulmonary disease with exacerbation. 3. Hypertension. 4. Tobacco dependent. 5. Non-ST segment elevation myocardial infarction. 6. Acute blood loss anemia. Hemoglobin is 6.9 upon arrival, status post transfusion. 7. Acute kidney injury. 8. Hypotension, suspect hypovolemia, possibly cardiogenic shock. 9. Cardiomyopathy ejection fraction 25% 10. Coronary artery disease, with 90% LAD occlusion Cardiac catheterization Wedge 33 mmHg Cardiac output 4.2 L/min, cardiac index 2.1 PA saturation 48% FA saturation 88% on 10 L nasal cannula Coronary angiography: Left main is a large caliber calcified vessel with a distal 50% stenosis LAD is a large caliber calcified vessel with an ostial 95% stenosis D1 is a moderate caliber vessel with normal angiographic appearance Left circumflex is a moderate to large caliber vessel with mild luminal irregularities OM1 is a moderate caliber vessel with mild luminal irregularities RCA is a moderate to large caliber dominant vessel with a mid subtotal occlusion with [id number] collaterals noted. Conclusion 1. Acute on chronic systolic and diastolic heart failure 2. Severe secondary pulmonary hypertension 3. Mildly decreased cardiac output 4. Acute respiratory failure secondary to cardiogenic shock and volume overload 5. Two-vessel coronary artery disease with left main involvement Recommendations 1. Initiate patient on Lasix drip, milrinone drip and heparin drip 2. After stabilization we will assess the patient's risk status for possible complex PCI versus bypass surgery. Plan . Updated 05/22/2010 PCI in the morning Discussed with nurse Currently on room air, respiratory status compensated Continue optimizing cardiac medication for cardiogenic shock and acute systolic heart failure Continue to diurese Oxygen supplementation Monitor H&H, stable Replace potassium Monitor creatinine GRICELDA DENNISON MD May 23, 2021 10:17
--- NOTE | 2021-05-23 11:01 | PDOC ---
NEEMA ALVAREZ MODESTO 05/23/21 1101: CARDIO Progress Notes Date and Time Date of Service 05/23/21 Time of Evaluation 1100 Subjective Subjective: No Chest Pain, No shortness of breath, No Palpitations Vitals Vitals Vital Signs Date Time Temp Pulse Resp B/P (MAP) Pulse Ox O2 Delivery O2 Flow Rate FiO2 05/23/21 08:56 99 134/64 05/23/21 04:00 98.4 18 94 Room Air 98.4 Weight Weight [ ] Input and Output Intake and Output Intake and Output 05/23/21 07:00 Intake Total 1044.31 ml Output Total 2130 ml Balance -1085.69 ml Intake Oral 720 ml IV Total 324.31 ml Output Urine Total 2130 ml Physical Exam HEENT: Neck Supple W Full Motion Chest: Symmetric LUNGS: Other (diminished bases) Heart: RRR (SR with PACs), other (2/6 systolic murmur ) Abdomen: Soft N/T Extremities: Other (trace bilateral LE edema) Neurology: alert, oriented, follow commands Assessment Assessment 1. Acute respiratory failure secondary to CHF 2. Acute on chronic systolic CHF; improved s/p fluid offloading with Lasix gtt and milrinone. Off Lasix. Continues to have good UOP on milrinone gtt 3. Severe ischemic cardiomyopathy, cardiogenic shock; Echo showed LVEF 25% with severe hypokinesis of mid to distal anterior and anteroseptal bryson and apical wall. Also moderate MR. RHC with volume overload, severe secondary pulmHTN. 4. NSTEMI; trop highest 16,603 5. CAD; [facility] with critical two-vessel disease with LM involvement. 6. Anemia; s/p transfusion. hgb stable 7. ASHA; cardiorenal. resolved 8. H/o hypertension; initially low end, but improved 9. Hyperlipidemia; statin 10. Carotid artery disease 11. Bradarrhythmia; brief episode of second degree type II AVB noted overnight while sleeping on 05/22. None prolonged or while awake. Presently SR Recommendations Recheck labs Continue milrinone gtt. Secondary prevention High dose stain, Plavix therapy Continue BB. Lasix PRN Supportive care Plan for high risk PCI of the LM/LAD and RCA tomorrow Supportive care Justicifation of Admission Dx: Justifications for Admission: Justification of Admission Dx: Yes CHF: Hemodynamic Instability ND: Acute NSTEMI WES JEFF MD 05/24/21 1254: CARDIO Progress Notes Plan Plan Late entry for 05/23/2021 Patient seen and examined. Agree with above nurse practitioner note. Risks and benefits discussed again with the patient and his family at bedside. He is willing to proceed with high risk complex PCI of the left main, LAD and possibly RCA ANTONIONEEAM GRANT APRN May 23, 2021 11:01 WES JEFF MD May 24, 2021 12:54
[2021-05-23 12:00] VITALS: BP 117/59
[2021-05-23 12:14] LABS: BASO # 0.1 x10^3/uL (0.0-0.2); BASO % 1 % (0-3); EOS # 0.2 x10^3/uL (0.0-0.7); EOS % 2 % (0-3); HEMATOCRIT 26.9 % (39.0-53.0); HEMOGLOBIN 8.5 g/dL (13.0-17.5); LYMPH # 1.1 x10^3/uL (1.0-4.8); LYMPH % 13 % (24-48); MEAN CORPUSCULAR HEMOGLOBIN 27 pg (25-35); MEAN CORPUSCULAR HGB CONC 32 g/dL (31-37); MEAN CORPUSCULAR VOLUME 85 fL (79-100); MONO # 0.9 x10^3/uL (0.0-1.1); MONO % 10 % (0-9); NEUT # 6.3 x10^3/uL (1.8-7.7); NEUT % 74 % (31-73); PLATELET COUNT 310 x10^3/uL (140-400); RED BLOOD COUNT 3.16 x10^6/uL (4.30-5.70); RED CELL DISTRIBUTION WIDTH 17.9 % (11.5-14.5); WHITE BLOOD COUNT 8.6 x10^3/uL (4.0-11.0)
[2021-05-23 12:22] LABS: CALCIUM 8.4 mg/dL (8.5-10.1); CREATININE 0.9 mg/dL (0.7-1.3); GFR 82.7; POTASSIUM 3.7 mmol/L (3.5-5.1)
--- NOTE | 2021-05-23 12:31 | PDOC ---
[facility] [facility] PROGRESS NOTE Date of Service DOS: DATE: 05/23/21 TIME: 12:29 Chief Complaint Chief Complaint Acute [place] Status post cardiac cath yesterday with the following results; Conclusion 1. Acute on chronic systolic and diastolic heart failure 2. Severe secondary pulmonary hypertension 3. Mildly decreased cardiac output 4. Acute respiratory failure secondary to cardiogenic shock and volume overload 5. Two-vessel coronary artery disease with left main involvement CAD Hypertension Respiratory failure GI bleed Thrombocytopenia Fluid overload Acute on chronic systolic diastolic heart failure ASHA History of Present Illness History of Present Illness 05/23/2021: Patient seen and evaluated in ICU. He has PCI scheduled for tomorrow, per cardiology. Discussed with RN. 05/22/2021 Patient seen and examined with his daughter Liv who seems to be great support for him Chart review Discussed with RN He is awaiting his second cardiac cath on Sunday next week 05/21/2021 Patient seen and examined in the ICU Discussed with RN Chart reviewed We are awaiting cardiac cath Sunday05/20/2021 Patient seen and examined Discussed with RN Chart reviewed He is going for PCI Sunday05/19/2021 Patient seen and examined in the ICU He is up in the chair resting with no apparent distress Still on milrinone drip and heparin drip Going for PC I Sunday Discussed with case management Discussed with RN Chart reviewed 05/18/2021 Patient seen and examined in the ICU He is currently on a milrinone drip He also has a heparin drip Also has a [place]-Leanna Discussed with RN Chart reviewed Cardiology considering high risk PCI versus bypass 05/17/2021 Patient seen and examined in the ICU Went for cardiac cath yesterday Has a [place]-Leanna catheter Discussed with RN Discussed with case management Chart 05/17/2019 Patient seen and examined in the ICU He is scheduled to go to cardiac cath later today Discussed with RN Discussed with case management Chart review Vitals/I&O Vitals/I&O: Vital Signs Date Time Temp Pulse Resp B/P (MAP) Pulse Ox O2 Delivery O2 Flow Rate FiO2 05/23/21 08:56 99 134/64 05/23/21 04:00 98.4 18 94 Room Air 98.4 I & O 05/22/21 05/22/21 05/23/21 15:00 23:00 07:00 Intake Total 767 ml 277.31 ml Output Total 1800 ml 330 ml Balance -1033 ml -52.69 ml Physical Exam General: Alert, Oriented X3, Cooperative, Other (pursed lip breathing) Heart: Regular rate, Normal S1, Normal S2, Other (systolic murmur 1/6) Lungs: Crackles Abdomen: Other (soft distension, no tenderness) Extremities: No clubbing, No cyanosis, Other (trace pedal edema) Skin: No rashes Labs Labs: Laboratory Tests Test 05/23/21 12:00 White Blood Count 8.6 x10^3/uL (4.0-11.0) Red Blood Count 3.16 x10^6/uL (4.30-5.70) Hemoglobin 8.5 g/dL (13.0-17.5) Hematocrit 26.9 % (39.0-53.0) Mean Corpuscular Volume 85 fL (79-100) Mean Corpuscular Hemoglobin 27 pg (25-35) Mean Corpuscular Hemoglobin Concent 32 g/dL (31-37) Red Cell Distribution Width 17.9 % (11.5-14.5) Platelet Count 310 x10^3/uL (140-400) Neutrophils (%) (Auto) 74 % (31-73) Lymphocytes (%) (Auto) 13 % (24-48) Monocytes (%) (Auto) 10 % (0-9) Eosinophils (%) (Auto) 2 % (0-3) Basophils (%) (Auto) 1 % (0-3) Neutrophils # (Auto) 6.3 x10^3/uL (1.8-7.7) Lymphocytes # (Auto) 1.1 x10^3/uL (1.0-4.8) Monocytes # (Auto) 0.9 x10^3/uL (0.0-1.1) Eosinophils # (Auto) 0.2 x10^3/uL (0.0-0.7) Basophils # (Auto) 0.1 x10^3/uL (0.0-0.2) Sodium Level 138 mmol/L (136-145) Potassium Level 3.7 mmol/L (3.5-5.1) Chloride Level 103 mmol/L (98-107) Carbon Dioxide Level 26 mmol/L (21-32) Anion Gap 9 (6-14) Blood Urea Nitrogen 9 mg/dL (8-26) Creatinine 0.9 mg/dL (0.7-1.3) Estimated GFR (Cockcroft-Gault) 82.7 Glucose Level 85 mg/dL (70-99) Calcium Level 8.4 mg/dL (8.5-10.1) Magnesium Level 1.9 mg/dL (1.8-2.4) Comment Review of Relevant I have reviewed the following items angelica (where applicable) has been applied. Justifications for Admission Other Justification PAUL CHAVEZ MD May 23, 2021 12:31
[2021-05-23] MEDS: ASPIRIN ENTERIC COATED 81 MG TABLET.DR. PO SCH (12:40)
[2021-05-23 16:00] VITALS: BP 129/67
[2021-05-23 20:00] VITALS: BP 132/59
[2021-05-23] MEDS: ATORVASTATIN CALCIUM 40 MG TABLET. PO SCH (20:52)
[2021-05-23] MEDS: ZOLPIDEM 5 MG TABLET. PO SCH (20:52)
[2021-05-24] VITALS (18 sets, daily range): BP systolic 119–163; BP diastolic 61–97
[2021-05-24 05:33] LABS: CALCIUM 8.3 mg/dL (8.5-10.1); CREATININE 0.9 mg/dL (0.7-1.3); GFR 82.7; POTASSIUM 3.4 mmol/L (3.5-5.1)
[2021-05-24 06:08] LABS: HEMATOCRIT 25.9 % (39.0-53.0); HEMOGLOBIN 8.2 g/dL (13.0-17.5); RED BLOOD COUNT 2.98 x10^6/uL (4.30-5.70); RED CELL DISTRIBUTION WIDTH 18.5 % (11.5-14.5); WHITE BLOOD COUNT 9.3 x10^3/uL (4.0-11.0)
[2021-05-24] MEDS: FERROUS SULFATE 325 MG TABLET. PO SCH ×2 (08:22→16:30)
[2021-05-24] MEDS: ASPIRIN ENTERIC COATED 81 MG TABLET.DR. PO SCH (08:22)
[2021-05-24] MEDS: PANTOPRAZOLE 40 MG TABLET.DR. PO SCH (08:22)
[2021-05-24] MEDS: CARVEDILOL 3.125 MG TABLET. PO SCH ×2 (08:23→20:42)
[2021-05-24] MEDS: CLOPIDOGREL BISULFATE 75 MG TABLET PO SCH (08:23)
[2021-05-24] MEDS: LACTOBACILLUS RHAMNOSUS GG 1 CAPSULE. PO SCH ×2 (09:00→20:42)
[2021-05-24] MEDS: DOCUSATE SODIUM 100 MG CAPSULE. PO SCH ×2 (09:00→21:00)
[2021-05-24] MEDS: SENNOSIDES/DOCUSATE 8.6/50MG TABLET. PO SCH ×2 (09:00→21:00)
--- NOTE | 2021-05-24 09:48 | PDOC ---
PULMONARY PROGRESS NOTES DATE: 05/24/21 TIME: 09:45 Subjective No overnight events patient off of oxygen, sitting up in a chair, no chest pain no pressure on room air Vitals Vital Signs Date Time Temp Pulse Resp B/P (MAP) Pulse Ox O2 Delivery O2 Flow Rate FiO2 05/24/21 08:23 103 150/87 05/24/21 08:00 Room Air 05/24/21 08:00 98.6 18 96 98.6 ROS: No Nausea, No Abdominal Pain, No Increase Cough General: Alert Lungs: Clear Cardiovascular: S1, S2 Abdomen: Soft, Non-tender Neuro Exam: Alert, Oriented Extremities: No Edema Skin: Warm Labs Laboratory Tests Test 05/23/21 12:00 05/24/21 04:45 White Blood Count 8.6 x10^3/uL (4.0-11.0) 9.3 x10^3/uL (4.0-11.0) Red Blood Count 3.16 x10^6/uL (4.30-5.70) 2.98 x10^6/uL (4.30-5.70) Hemoglobin 8.5 g/dL (13.0-17.5) 8.2 g/dL (13.0-17.5) Hematocrit 26.9 % (39.0-53.0) 25.9 % (39.0-53.0) Mean Corpuscular Volume 85 fL (79-100) 87 fL (79-100) Mean Corpuscular Hemoglobin 27 pg (25-35) 27 pg (25-35) Mean Corpuscular Hemoglobin Concent 32 g/dL (31-37) 32 g/dL (31-37) Red Cell Distribution Width 17.9 % (11.5-14.5) 18.5 % (11.5-14.5) Platelet Count 310 x10^3/uL (140-400) 282 x10^3/uL (140-400) Neutrophils (%) (Auto) 74 % (31-73) Lymphocytes (%) (Auto) 13 % (24-48) Monocytes (%) (Auto) 10 % (0-9) Eosinophils (%) (Auto) 2 % (0-3) Basophils (%) (Auto) 1 % (0-3) Neutrophils # (Auto) 6.3 x10^3/uL (1.8-7.7) Lymphocytes # (Auto) 1.1 x10^3/uL (1.0-4.8) Monocytes # (Auto) 0.9 x10^3/uL (0.0-1.1) Eosinophils # (Auto) 0.2 x10^3/uL (0.0-0.7) Basophils # (Auto) 0.1 x10^3/uL (0.0-0.2) Sodium Level 138 mmol/L (136-145) 142 mmol/L (136-145) Potassium Level 3.7 mmol/L (3.5-5.1) 3.4 mmol/L (3.5-5.1) Chloride Level 103 mmol/L (98-107) 107 mmol/L (98-107) Carbon Dioxide Level 26 mmol/L (21-32) 26 mmol/L (21-32) Anion Gap 9 (6-14) 9 (6-14) Blood Urea Nitrogen 9 mg/dL (8-26) 9 mg/dL (8-26) Creatinine 0.9 mg/dL (0.7-1.3) 0.9 mg/dL (0.7-1.3) Estimated GFR (Cockcroft-Gault) 82.7 82.7 Glucose Level 85 mg/dL (70-99) 95 mg/dL (70-99) Calcium Level 8.4 mg/dL (8.5-10.1) 8.3 mg/dL (8.5-10.1) Magnesium Level 1.9 mg/dL (1.8-2.4) Laboratory Tests Test 05/23/21 12:00 05/24/21 04:45 White Blood Count 8.6 x10^3/uL (4.0-11.0) 9.3 x10^3/uL (4.0-11.0) Red Blood Count 3.16 x10^6/uL (4.30-5.70) 2.98 x10^6/uL (4.30-5.70) Hemoglobin 8.5 g/dL (13.0-17.5) 8.2 g/dL (13.0-17.5) Hematocrit 26.9 % (39.0-53.0) 25.9 % (39.0-53.0) Mean Corpuscular Volume 85 fL (79-100) 87 fL (79-100) Mean Corpuscular Hemoglobin 27 pg (25-35) 27 pg (25-35) Mean Corpuscular Hemoglobin Concent 32 g/dL (31-37) 32 g/dL (31-37) Red Cell Distribution Width 17.9 % (11.5-14.5) 18.5 % (11.5-14.5) Platelet Count 310 x10^3/uL (140-400) 282 x10^3/uL (140-400) Neutrophils (%) (Auto) 74 % (31-73) Lymphocytes (%) (Auto) 13 % (24-48) Monocytes (%) (Auto) 10 % (0-9) Eosinophils (%) (Auto) 2 % (0-3) Basophils (%) (Auto) 1 % (0-3) Neutrophils # (Auto) 6.3 x10^3/uL (1.8-7.7) Lymphocytes # (Auto) 1.1 x10^3/uL (1.0-4.8) Monocytes # (Auto) 0.9 x10^3/uL (0.0-1.1) Eosinophils # (Auto) 0.2 x10^3/uL (0.0-0.7) Basophils # (Auto) 0.1 x10^3/uL (0.0-0.2) Sodium Level 138 mmol/L (136-145) 142 mmol/L (136-145) Potassium Level 3.7 mmol/L (3.5-5.1) 3.4 mmol/L (3.5-5.1) Chloride Level 103 mmol/L (98-107) 107 mmol/L (98-107) Carbon Dioxide Level 26 mmol/L (21-32) 26 mmol/L (21-32) Anion Gap 9 (6-14) 9 (6-14) Blood Urea Nitrogen 9 mg/dL (8-26) 9 mg/dL (8-26) Creatinine 0.9 mg/dL (0.7-1.3) 0.9 mg/dL (0.7-1.3) Estimated GFR (Cockcroft-Gault) 82.7 82.7 Glucose Level 85 mg/dL (70-99) 95 mg/dL (70-99) Calcium Level 8.4 mg/dL (8.5-10.1) 8.3 mg/dL (8.5-10.1) Magnesium Level 1.9 mg/dL (1.8-2.4) Medications Active Scripts Medications Dose Route/Sig Max Daily Dose Days Date Category Dose Instructions Colace (Docusate Sodium) 100 Mg Capsule 1 Cap PO BID 11/18/15 Reported Coumadin (Warfarin Sodium) 3 Mg Tablet 1 Tab PO DAILY 11/18/15 Reported Ferrous Sulfate 325 Mg Tablet 325 Mg PO 10/29/15 Reported Next dose tomorrow 11/19/15 09 am. Viagra (Sildenafil Citrate) 100 Mg Tablet 100 Mg PO ONCE 10/29/15 Reported Resume prior to hospitalization. Atorvastatin Calcium 10 Mg Tablet 10 Mg PO HS 10/29/15 Reported Next dose tonight at bed time. Lisinopril 20 Mg Tablet 10 Mg PO DAILY 04/08/15 Reported Next dose tomorrow 11/19/15 at 9 am. Impression . IMPRESSION: 1. Acute hypoxemic respiratory failure secondary to acute systolic heart failure. 2. Chronic obstructive pulmonary disease with exacerbation. Resolved. 3. Hypertension. 4. Tobacco dependent. Smoked for 58 years. 5. Non-ST segment elevation myocardial infarction. 6. Acute blood loss anemia. Hemoglobin is 6.9 upon arrival, status post transfusion. 7. Acute kidney injury. 8. Hypotension, suspect hypovolemia, possibly cardiogenic shock. Resolved. 9. Cardiomyopathy ejection fraction 25% 10. Coronary artery disease, with 90% LAD occlusion Cardiac catheterization Wedge 33 mmHg Cardiac output 4.2 L/min, cardiac index 2.1 PA saturation 48% FA saturation 88% on 10 L nasal cannula Coronary angiography: Left main is a large caliber calcified vessel with a distal 50% stenosis LAD is a large caliber calcified vessel with an ostial 95% stenosis D1 is a moderate caliber vessel with normal angiographic appearance Left circumflex is a moderate to large caliber vessel with mild luminal irregularities OM1 is a moderate caliber vessel with mild luminal irregularities RCA is a moderate to large caliber dominant vessel with a mid subtotal occlusion with [id number] collaterals noted. Conclusion 1. Acute on chronic systolic and diastolic heart failure 2. Severe secondary pulmonary hypertension 3. Mildly decreased cardiac output 4. Acute respiratory failure secondary to cardiogenic shock and volume overload 5. Two-vessel coronary artery disease with left main involvement Recommendations 1. Initiate patient on Lasix drip, milrinone drip and heparin drip 2. After stabilization we will assess the patient's risk status for possible complex PCI versus bypass surgery. Plan . Updated 05/23/2010 PCI scheduled today. Patient declined for CABG. Discussed with nurse Currently on room air, respiratory status compensated Continue optimizing cardiac medication for cardiogenic shock and acute systolic heart failure. Currently on milrinone. Continue to diurese Follow-up chest x-ray. Last chest x-ray on 05/17/2021 reveals diffuse interstitial infiltrates. Oxygen supplementation Monitor H&H, stable Replace potassium as needed Renal function is now back to normal. Updated 05/22/2010 PCI in the morning Discussed with nurse Currently on room air, respiratory status compensated Continue optimizing cardiac medication for cardiogenic shock and acute systolic heart failure Continue to diurese Oxygen supplementation Monitor H&H, stable Replace potassium Monitor creatinine JUAN DANIEL HERMAN MD May 24, 2021 09:48
[2021-05-24] MEDS ORDERED: IODIXANOL 320 MG/ML 100 ML VIAL. ONE ×4 (11:17→14:51)
[2021-05-24] MEDS ORDERED: LIDOCAINE 1% Multi-Dose 20 ML VIAL. ONE (11:17)
--- NOTE | 2021-05-24 11:20 | RAD ---
XR CHEST 1V History: Congestive heart failure. Comparison: 05/17/2021. Technique: Portable AP radiograph of the chest. Findings: There is a right internal jugular sheath catheter with tip projecting at the upper SVC. The lungs are adequately inflated. There is left greater than right basilar opacities and small left effusion, mil dly improved from comparison. Prominent pulmonary interstitial markings and indistinct pulmonary vasc ulature. Heart size is stable and normal. Calcified aortic arch. Degenerative changes of the shoulder s. Soft tissues are unremarkable. Impression: 1. Bibasilar opacities and left pleural effusion, mildly improved from one week prior likely represe nt improved pulmonary edema. Cannot exclude superimposed infection. Electronically signed by: David Okeefe MD (05/24/2021 11:17 AM) [id number]
--- NOTE | 2021-05-24 12:05 | PDOC ---
Date of Service: DATE: 05/24/21 TIME: 12:02 Objective: Objective: No GI concerns per nurse. Reviewed notes - high risk PCI of LM/LAD and RCA this afternoon. Vital Signs: Vital Signs Date Time Temp Pulse Resp B/P (MAP) Pulse Ox O2 Delivery O2 Flow Rate FiO2 05/24/21 08:23 103 150/87 05/24/21 08:00 Room Air 05/24/21 08:00 98.6 18 96 98.6 Labs: Laboratory Tests Test 05/24/21 04:45 White Blood Count 9.3 x10^3/uL Red Blood Count 2.98 x10^6/uL Hemoglobin 8.2 g/dL Hematocrit 25.9 % Mean Corpuscular Volume 87 fL Mean Corpuscular Hemoglobin 27 pg Mean Corpuscular Hemoglobin Concent 32 g/dL Red Cell Distribution Width 18.5 % Platelet Count 282 x10^3/uL Sodium Level 142 mmol/L Potassium Level 3.4 mmol/L Chloride Level 107 mmol/L Carbon Dioxide Level 26 mmol/L Anion Gap 9 Blood Urea Nitrogen 9 mg/dL Creatinine 0.9 mg/dL Estimated GFR (Cockcroft-Gault) 82.7 Glucose Level 95 mg/dL Calcium Level 8.3 mg/dL Imaging: CXR 05/24 Impression: 1. Bibasilar opacities and left pleural effusion, mildly improved from one week prior likely represent improved pulmonary edema. Cannot exclude superimposed infection. PE: GEN: NAD - sleeping - did not disturb LUNGS: room air HEART: mildly tachycardic per monitor ABD: non-distended A/P: CHF, CAD, NSTEMI MANUELITO - stable on PPI and iron Rectal bleeding - resolved -- Stable from GI standpoint. Justicifation of Admission Dx: Justifications for Admission: Justification of Admission Dx: Yes CHF: Hemodynamic Instability WI: Acute NSTEMI LIBERTAD BARCENAS May 24, 2021 12:05
[2021-05-24] MEDS ORDERED: MIDAZOLAM HCL/PF 2 MG/2 ML VIAL. ONE ×2 (12:43→13:44)
[2021-05-24] MEDS ORDERED: fentaNYL PF VIAL 100 MCG/2 ML VIAL ONE ×2 (12:43→14:56)
[2021-05-24] MEDS ORDERED: HEPARIN for IV BOLUS 10,000 UNIT/10 ML VIAL. ONE (12:44)
[2021-05-24] MEDS ORDERED: VERAPAMIL 5 MG/2 ML VIAL. ONE (12:44)
[2021-05-24] MEDS ORDERED: NITROGLYCERIN 200 MCG/2 ML SYRINGE FOR CATH/VASC LAB. ONE ×2 (12:45→14:43)
[2021-05-24] MEDS ORDERED: TIROFIBAN 12.5MG -0.9% NS 0 ML IV ONE (12:45)
[2021-05-24] MEDS: MILRINONE 20MG/100ML PREMIX 100 ML IV PRN (13:19)
[2021-05-24] MEDS ORDERED: PHENYLEPHRINE in 0.9% NACL PF 1 MG/10 ML SYRINGE. IV ONE ×2 (13:37→15:15)
[2021-05-24] MEDS ORDERED: NOREPINEPHRINE VIAL 8 MG in IV DEXTROSE 5% 250 ML IV ONE (14:00)
[2021-05-24] MEDS ORDERED: POTASSIUM CHLORIDE 20 MEQ TABLET.ER. PO ONE (14:00)
[2021-05-24] MEDS: fentaNYL PF VIAL 100 MCG/2 ML VIAL IV ONE ×2 (14:55→15:15)
[2021-05-24] MEDS ORDERED: NITROGLYCERIN 200 MCG/2 ML SYRINGE FOR CATH/VASC LAB. IART ONE (15:15)
[2021-05-24] MEDS ORDERED: IODIXANOL 320 MG/ML 100 ML VIAL. IART ONE (15:15)
[2021-05-24] MEDS ORDERED: MIDAZOLAM HCL/PF 2 MG/2 ML VIAL. IV ONE (15:15)
[2021-05-24] MEDS ORDERED: HEPARIN for IV BOLUS 10,000 UNIT/10 ML VIAL. IART ONE (15:15)
[2021-05-24] MEDS ORDERED: VERAPAMIL 5 MG/2 ML VIAL. IART ONE (15:15)
[2021-05-24] MEDS ORDERED: LIDOCAINE 1% PF 2 ML VIAL. INJ ONE (15:15)
[2021-05-24] MEDS ORDERED: IV NORMAL SALINE 1000ML BAG 1,000 ML IV ONE (15:15)
[2021-05-24] MEDS ORDERED: LIDOCAINE 1% Multi-Dose 20 ML VIAL. INJ ONE (15:15)
[2021-05-24] MEDS ORDERED: HEPARIN for IV BOLUS 10,000 UNIT/10 ML VIAL. IV ONE (15:15)
--- NOTE | 2021-05-24 15:23 | PDOC ---
[facility] [facility] PROGRESS NOTE Date of Service DOS: DATE: 05/24/21 TIME: 15:22 Chief Complaint Chief Complaint Acute DE Status post cardiac cath yesterday with the following results; Conclusion 1. Acute on chronic systolic and diastolic heart failure 2. Severe secondary pulmonary hypertension 3. Mildly decreased cardiac output 4. Acute respiratory failure secondary to cardiogenic shock and volume overload 5. Two-vessel coronary artery disease with left main involvement CAD Hypertension Respiratory failure GI bleed Thrombocytopenia Fluid overload Acute on chronic systolic diastolic heart failure ASHA History of Present Illness History of Present Illness 05/24/2021: No acute events overnight. PCI schedule today. I imagine he will be monitored for a day or so, and discharge when cleared by cardiology. 05/23/2021: Patient seen and evaluated in ICU. He has PCI scheduled for tomorrow, per cardiology. Discussed with RN. 05/22/2021 Patient seen and examined with his daughter Liv who seems to be great support for him Chart review Discussed with RN He is awaiting his second cardiac cath on Sunday next week 05/21/2021 Patient seen and examined in the ICU Discussed with RN Chart reviewed We are awaiting cardiac cath Sunday05/20/2021 Patient seen and examined Discussed with RN Chart reviewed He is going for PCI Sunday05/19/2021 Patient seen and examined in the ICU He is up in the chair resting with no apparent distress Still on milrinone drip and heparin drip Going for PC I Sunday Discussed with case management Discussed with RN Chart reviewed 05/18/2021 Patient seen and examined in the ICU He is currently on a milrinone drip He also has a heparin drip Also has a Hopwood-Leanna Discussed with RN Chart reviewed Cardiology considering high risk PCI versus bypass 05/17/2021 Patient seen and examined in the ICU Went for cardiac cath yesterday Has a Hopwood-Leanna catheter Discussed with RN Discussed with case management Chart 05/17/2019 Patient seen and examined in the ICU He is scheduled to go to cardiac cath later today Discussed with RN Discussed with case management Chart review Vitals/I&O Vitals/I&O: Vital Signs Date Time Temp Pulse Resp B/P (MAP) Pulse Ox O2 Delivery O2 Flow Rate FiO2 05/24/21 14:41 98.1 79 19 133/74 98.1 05/24/21 12:00 93 Room Air I & O 05/23/21 05/23/21 05/24/21 15:00 23:00 07:00 Intake Total 950 ml 321 ml Output Total 1300 ml 1401 ml Balance -350 ml -1080 ml Physical Exam General: Alert, Oriented X3, Cooperative, Other (pursed lip breathing) Heart: Regular rate, Normal S1, Normal S2, Other (systolic murmur 1/6) Lungs: Clear Abdomen: Other (soft distension, no tenderness) Extremities: No clubbing, No cyanosis, Other (trace pedal edema) Skin: No rashes Labs Labs: Laboratory Tests Test 05/24/21 04:45 White Blood Count 9.3 x10^3/uL (4.0-11.0) Red Blood Count 2.98 x10^6/uL (4.30-5.70) Hemoglobin 8.2 g/dL (13.0-17.5) Hematocrit 25.9 % (39.0-53.0) Mean Corpuscular Volume 87 fL (79-100) Mean Corpuscular Hemoglobin 27 pg (25-35) Mean Corpuscular Hemoglobin Concent 32 g/dL (31-37) Red Cell Distribution Width 18.5 % (11.5-14.5) Platelet Count 282 x10^3/uL (140-400) Sodium Level 142 mmol/L (136-145) Potassium Level 3.4 mmol/L (3.5-5.1) Chloride Level 107 mmol/L (98-107) Carbon Dioxide Level 26 mmol/L (21-32) Anion Gap 9 (6-14) Blood Urea Nitrogen 9 mg/dL (8-26) Creatinine 0.9 mg/dL (0.7-1.3) Estimated GFR (Cockcroft-Gault) 82.7 Glucose Level 95 mg/dL (70-99) Calcium Level 8.3 mg/dL (8.5-10.1) Comment Review of Relevant I have reviewed the following items angelica (where applicable) has been applied. Justifications for Admission Other Justification PAUL CHAVEZ MD May 24, 2021 15:23
[2021-05-24] MEDS ORDERED: CONTRAST GIVEN. MC PRN (15:45)
[2021-05-24] MEDS ORDERED: CLOPIDOGREL BISULFATE 75 MG TABLET PO ONE (16:00)
[2021-05-24] MEDS ORDERED: CLOPIDOGREL BISULFATE 75 MG TABLET ONE (16:01)
[2021-05-24] MEDS ORDERED: FUROSEMIDE 40 MG/4 ML VIAL. IVP SCH (18:30)
[2021-05-24] MEDS ORDERED: fentaNYL PF VIAL 100 MCG/2 ML VIAL IVP PRN (18:30)
[2021-05-24] MEDS: ATORVASTATIN CALCIUM 40 MG TABLET. PO SCH (20:41)
[2021-05-24] MEDS: ZOLPIDEM 5 MG TABLET. PO SCH (21:00)
[2021-05-25] VITALS: BP 154/66
[2021-05-25 04:00] VITALS: BP 146/75
--- NOTE | 2021-05-25 07:41 | CARD ---
MR#: [id number] Date of Study: 05/24/2021 Ordering Physician: WES CRUZ, Referring Physician: WES CRUZ, Tech: Amanda Eric APPROVED REPORT Technologist: Amanda Eric Nurse: Darlene Hair RN Procedure(s) performed: class 4 Heart Failure fl time: 43.7 min dose: 363 gycm2 contrast: 342 ml moderate sedation: 177 MINS [facility] Aortogram Insertion of a Short-Term External Heart Assist System in Heart, Intraoperative, Percutaneous Approac h - [id number] Assistance with Cardiac Output using Impeller Pump, Continous [id number] Physician Supervision for Impeller Pump (CPT 12541) Complex PCI of the Left main and LAD with IVUS guidance Complex PTCA of RESEARCH RECRUITER of the RCA Temporary pacemaker insertion HISTORY The patient is a 75 year-old male with a history of : coronary artery disease, tobacco history() , hy pertension, dyslipidemia. INDICATION The indication(s) include : non-STEMI . CSHA Clinical Frailty Scale CSHA Clinical Frailty Scale: Severely Frail Heart Failure Heart Failure: Yes If Yes, Newly Diagnosed: Yes If Yes, HF Type: Systolic CASE TECHNIQUE IV conscious sedation was used throughout procedure with appropriate monitoring and was performed in the presence of a registered nurse who was an independent trained observer other than the physician p erforming the procedure. During this case, Fluoroscopy and Iso-osmolar contrast were used for imaging . Specimen(s) Removed: N/A Estimated Blood loss: 50 cc's. PROCEDURE NARRATIVE Clinical information: 75-year-old male who presented to the hospital in the setting of cardiac shock requiring vasopressor therapy underwent an angiogram which revealed three-vessel disease with left main involvement. He wa s referred for cardiac surgery and felt to be a high risk candidate and therefore he presents to the Manager Administrative for high risk PCI after discussion of risks and benefits. Procedure details: Under 1% lidocaine local anesthesia a 5 Belgian sheath was placed in the right common femoral artery. Under fluoroscopic and ultrasound guidance a 6 Belgian sheath was placed in the left common femoral a rtery. Next, a 6 Belgian sheath was placed in the left common femoral vein. Right radial arterial ac cess was obtained via the Seldinger technique for use as secondary access site and chronic total occl usion PCI as needed. Aortography was performed with a 5 Belgian Omni Flush catheter placed in the distal abdominal aorta to evaluate for vessel patency and caliber for insertion of large-bore arterial sheath. Aortography de monstrated severe calcific disease in the bilateral iliac vessels and common femoral arteries. It wa s felt that the right common femoral artery and iliac system would provide the most inline access. Next, a 6 Belgian pacemaker was placed from the left common femoral vein access in the right ventricul ar apex with appropriate capture thresholds. Next, the 5 Belgian sheath was removed and 2 preclosed suture devices were placed in the right common femoral artery and the sheath was then upsized to a 14 Belgian sheath. Next, a pigtail catheter was p laced in the left ventricle. Left ventricle end-diastolic pressure was measured at 5 mmHg. Next ove r a 0.025 inch wire a Impella CP continuous-flow percutaneous left ventricular assist device was plac ed in the left ventricle and appropriate flows were noted. Complex PCI of the left main and LAD: Heparin was used for anticoagulation. The patient was previously on aspirin and Plavix therapy. Thr ough an 8 Belgian EBU 3.5 guide catheter a Prowater wire was initially placed in the distal LAD. This wire was then exchanged over a Corsair catheter for a Viper wire. Next, coronary atherectomy was pe rformed in the left main and LAD with a CSI atherectomy device at low and high speeds. Subsequently, a intravascular ultrasound catheter was advanced from the left main into the LAD and appropriate sanjay surements were made. The proximal LAD was noted to be 4 mm in the left main was noted to be approxim ately 4.75 mm. There was significant calcification noted. Next, balloon angioplasty was performed w ith a 3.5 x 12 mm balloon in the left main and proximal LAD. Next, a second wire was placed in the l eft circumflex. Next, a resolute 4.5 x 22 mm drug-eluting stent was deployed from the left main into the LAD after removal of the circumflex wire. The stent was then postdilated with a 4 mm noncomplia nt balloon in the LAD and a 4.5 mm noncompliant balloon at 18 nomi in the left main. Final angiograph y demonstrated excellent stent expansion with BLAYNE-3 flow in the vessel and no evidence of guidewire related complications with patency of the ostium of the left circumflex without any significant flow compromise. Complex PTCA of the right coronary artery: Next, a 5 Belgian sheath was placed in the Impella sheath using single access technique and a JL4 cath eter was used to engage the left main to help with contralateral injections. Through the left common femoral arterial access site a 6 Belgian JR4 guide catheter was used to engage the right coronary art freda. Angiography demonstrated previously seen subtotal and chronic total occlusion of the mid to dis mary RCA. Through the help of a Corsair catheter and a executive pilot 200 wire the chronic total occlusion was traversed and fluoroscopy and contralateral injection as well as antegrade injection confirmed intra luminal placement of the distal wire. Angioplasty was initially performed in the proximal segment wi th a 1.5 x 20 mm balloon. Despite attempts with a 1.2 and a 1.0 x 15 mm sapphire balloons the distal chronic total occlusion which appeared to be calcific was unable to be traversed. Given contrast lo ad, robust left to right collaterals a decision was made to defer chronic total occlusion PCI at this time. Final angiography demonstrated no evidence of guide or wire related complications. At case completion all catheters and sheaths were removed. The right radial sheath was removed and h emostasis was achieved via a Terumo radial band. The right groin Impella access sheath was removed a nd hemostasis was achieved after cinching down of the preclosed devices. A 8 Belgian Angio-Seal devic e was used to close the left common femoral artery. Manual pressure was used to achieve hemostasis o f the left common femoral vein. During the procedure the patient received 1 unit of PRBCs due to sig nificant anemia prior to the case. The patient also received 300 mg of Plavix at case completion. T he patient tolerated the procedure well. No acute complications. BLAYNE Flow BLAYNE Flow (Pre-Intervention): BLAYNE-3 BLAYNE Flow (Post-Intervention): BLAYNE-3 BLAYNE Flow BLAYNE Flow (Pre-Intervention): BLAYNE-0 BLAYNE Flow (Post-Intervention): BLAYNE-1 Conclusion 1. Successful complex PCI of the left main and LAD with atherectomy and intravascular ultrasound david best. 2. Unsuccessful complex PTCA of the right coronary artery due to heavy calcific disease 3. Successful insertion and removal of a Impella CP left ventricular percutaneous assist device Recommendations Aspirin 81 mg indefinitely Plavix 75 mg indefinitely if tolerated Cardiac rehabilitation therapy Goal-directed medical therapy for ischemic cardiomyopathy Reevaluation for consideration of ICD therapy on an outpatient basis Signed by : Wes Cruz, Electronically Approved : 05/25/2021 07:41:19
[2021-05-25 08:00] VITALS: BP 150/72
[2021-05-25] MEDS: DOCUSATE SODIUM 100 MG CAPSULE. PO SCH (08:04)
[2021-05-25] MEDS: FERROUS SULFATE 325 MG TABLET. PO SCH ×2 (08:04→17:33)
[2021-05-25] MEDS: LACTOBACILLUS RHAMNOSUS GG 1 CAPSULE. PO SCH (08:04)
[2021-05-25] MEDS: PANTOPRAZOLE 40 MG TABLET.DR. PO SCH (08:04)
[2021-05-25] MEDS: CLOPIDOGREL BISULFATE 75 MG TABLET PO SCH (08:04)
[2021-05-25] MEDS: SENNOSIDES/DOCUSATE 8.6/50MG TABLET. PO SCH (08:05)
[2021-05-25] MEDS: CARVEDILOL 3.125 MG TABLET. PO SCH ×2 (08:05→17:34)
[2021-05-25] MEDS: ASPIRIN ENTERIC COATED 81 MG TABLET.DR. PO SCH (08:05)
[2021-05-25] MEDS ORDERED: POTASSIUM CHLORIDE 20 MEQ TABLET.ER. PO ONE (09:30)
[2021-05-25] MEDS ORDERED: FUROSEMIDE 40 MG/4 ML VIAL. IVP ONE (09:30)
--- NOTE | 2021-05-25 09:41 | PDOC ---
SUKI BROCK CLARIFYING PLANT OPERATOR 05/25/21 0941: CARDIO Progress Notes Date and Time Date of Service 05/25/2021 Time of Evaluation 0900 Subjective Subjective: No Chest Pain, No shortness of breath, No Palpitations Vitals Vitals Vital Signs Date Time Temp Pulse Resp B/P (MAP) Pulse Ox O2 Delivery O2 Flow Rate FiO2 05/25/21 08:30 95 Nasal Cannula 2.0 05/25/21 08:05 92 150/72 05/25/21 08:00 98.7 18 98.7 Weight Weight [ ] Input and Output Intake and Output Intake and Output 05/25/21 07:00 Intake Total 2155 ml Output Total 2600 ml Balance -445 ml Intake Oral 600 ml IV Total 1219 ml Blood Product IV Normal Saline Flush 336 ml Output Urine Total 2600 ml Physical Exam HEENT: Neck Supple W Full Motion Chest: Symmetric LUNGS: Other (basilar crackles) Heart: RRR (SR with PACs), other (2/6 systolic murmur ) Abdomen: Soft N/T Extremities: Other (1+ bilateral LE edema) Neurology: alert, oriented, follow commands Assessment Assessment 1. Acute respiratory failure secondary to CHF: appears compensated 2. Acute on chronic systolic CHF; improved s/p fluid offloading with Lasix gtt and milrinone. Off Lasix. Continues to have good UOP on milrinone gtt 3. Severe ischemic cardiomyopathy, cardiogenic shock; Echo showed LVEF 25% with severe hypokinesis of mid to distal anterior and anteroseptal bryson and apical wall. Also moderate MR. RHC with volume overload, severe secondary pulmHTN. 4. NSTEMI; trop highest 16,603 Successful complex PCI of the left main and LAD with atherectomy and intravascular ultrasound guidance. Unsuccessful complex PTCA of the right coronary artery due to heavy calcific disease, will treat medically 5. CAD; 2VD as above 6. Anemia; s/p transfusion. hgb stable 7. ASHA; cardiorenal. resolved 8. H/o hypertension; initially low end, but improved 9. Hyperlipidemia; statin 10. Carotid artery disease 11. Bradarrhythmia; brief episode of second degree type II AVB noted overnight while sleeping on 05/22. None prolonged or while awake. Presently SR Recommendations Off milrinone. Continue coreg. Lasix therapy, K replacement. Start on jardiance and low dose lisinopril. H/H ASA, plavix and statin Cardiac rehab Will consider for AICD as an outpt. [employer] in the mean time Follow up with Dr. Jeff on June 24 at 9:30 AM Justicifation of Admission Dx: Justifications for Admission: Justification of Admission Dx: Yes CHF: Hemodynamic Instability NC: Acute NSTEMI WES JEFF MD 05/27/21 0215: CARDIO Progress Notes Plan Plan Late entry for 05/25/21 Pt. seen and examined. Agree with above MOBILE APPLICATION ENGINEER note. SUKI BROCK CLARIFYING PLANT OPERATOR May 25, 2021 09:41 WES JEFF MD May 27, 2021 02:15
--- NOTE | 2021-05-25 09:48 | PDOC ---
Date of Service: DATE: 05/25/21 TIME: 09:45 Subjective: Subjective: No complaints, wants to go home. Objective: Vital Signs: Vital Signs Date Time Temp Pulse Resp B/P (MAP) Pulse Ox O2 Delivery O2 Flow Rate FiO2 05/25/21 08:30 95 Nasal Cannula 2.0 05/25/21 08:05 92 150/72 05/25/21 08:00 98.7 18 98.7 Imaging: Angioplasty Conclusion 1. Successful complex PCI of the left main and LAD with atherectomy and intravascular ultrasound guidance. 2. Unsuccessful complex PTCA of the right coronary artery due to heavy calcific disease 3. Successful insertion and removal of a Impella CP left ventricular percutaneous assist device Recommendations Aspirin 81 mg indefinitely Plavix 75 mg indefinitely if tolerated Cardiac rehabilitation therapy Goal-directed medical therapy for ischemic cardiomyopathy Reevaluation for consideration of ICD therapy on an outpatient basis PE: GEN: NAD LUNGS: CTAB HEART: RRR ABD: NABS, S/ND/NT NEURO/PSYCH: A & O 3 A/P: CHF, CAD, NSTEMI - s/p stents as above on Plavix and ASA MANUELITO - stable on PPI and iron Rectal bleeding - resolved -- Continue per cardiology. Continue PPI and iron. Consider outpt 'scopes after recovery from cardiac issues. Justicifation of Admission Dx: Justifications for Admission: Justification of Admission Dx: Yes CHF: Hemodynamic Instability TN: Acute NSTEMI LIBERTAD BARCENAS May 25, 2021 09:48
--- NOTE | 2021-05-25 10:41 | PDOC ---
[employer] PROGRESS NOTE Date of Service DOS: DATE: 05/25/21 TIME: 10:36 Chief Complaint Chief Complaint Acute [place] Status post cardiac cath yesterday with the following results; Conclusion 1. Acute on chronic systolic and diastolic heart failure 2. Severe secondary pulmonary hypertension 3. Mildly decreased cardiac output 4. Acute respiratory failure secondary to cardiogenic shock and volume overload 5. Two-vessel coronary artery disease with left main involvement CAD Hypertension Respiratory failure GI bleed Thrombocytopenia Fluid overload Acute on chronic systolic diastolic heart failure ASHA History of Present Illness History of Present Illness 05/25/2021: Patient no complaints today. He had successful complex PCI of the left main and LAD with atherectomy and intravascular ultrasound guidance.. Unsuccessful complex PTCA of right coronary artery due to heavy calcific disease. Successful insertion and removal of a Impella CP left ventricular percutaneous assist device. Discussed with cardiology, he may discharge later today once LifeVest set up. Greater than 30 minutes spent managing the discharge of this patient. 05/24/2021: No acute events overnight. PCI schedule today. I imagine he will be monitored for a day or so, and discharge when cleared by cardiology. 05/23/2021: Patient seen and evaluated in ICU. He has PCI scheduled for tomorrow, per cardiology. Discussed with RN. 05/22/2021 Patient seen and examined with his daughter Liv who seems to be great support for him Chart review Discussed with RN He is awaiting his second cardiac cath on Sunday next week 05/21/2021 Patient seen and examined in the ICU Discussed with RN Chart reviewed We are awaiting cardiac cath Sunday05/20/2021 Patient seen and examined Discussed with RN Chart reviewed He is going for PCI Sunday05/19/2021 Patient seen and examined in the ICU He is up in the chair resting with no apparent distress Still on milrinone drip and heparin drip Going for PC I Sunday Discussed with case management Discussed with RN Chart reviewed 05/18/2021 Patient seen and examined in the ICU He is currently on a milrinone drip He also has a heparin drip Also has a Antelope-Leanna Discussed with RN Chart reviewed Cardiology considering high risk PCI versus bypass 05/17/2021 Patient seen and examined in the ICU Went for cardiac cath yesterday Has a Antelope-Leanna catheter Discussed with RN Discussed with case management Chart 05/17/2019 Patient seen and examined in the ICU He is scheduled to go to cardiac cath later today Discussed with RN Discussed with case management Chart review Vitals/I&O Vitals/I&O: Vital Signs Date Time Temp Pulse Resp B/P (MAP) Pulse Ox O2 Delivery O2 Flow Rate FiO2 05/25/21 08:30 95 Nasal Cannula 2.0 05/25/21 08:05 92 150/72 05/25/21 08:00 98.7 18 98.7 I & O 05/24/21 05/24/21 05/25/21 15:00 23:00 07:00 Intake Total 546 ml 1489 ml 120 ml Output Total 800 ml 600 ml 1200 ml Balance -254 ml 889 ml -1080 ml Physical Exam General: Alert, Oriented X3, Cooperative, Other (pursed lip breathing) Heart: Regular rate, Normal S1, Normal S2, Other (systolic murmur 1/6) Lungs: Clear Abdomen: Other (soft distension, no tenderness) Extremities: No clubbing, No cyanosis, Other (trace pedal edema) Skin: No rashes Comment Review of Relevant I have reviewed the following items angelica (where applicable) has been applied. Medications: Current Medications Medications (Trade) Dose Ordered Sig/Layne Route PRN Reason Start Time Stop Time Status Last Admin Dose Admin Nitroglycerin (Nitroglycerin) 400 mcg 1X ONCE IART 05/24/21 15:15 05/24/21 15:46 DC 05/24/21 15:15 Verapamil HCl (Verapamil) 2.5 mg 1X ONCE IART 05/24/21 15:15 05/24/21 15:46 DC 05/24/21 15:15 Heparin Sodium (Porcine) (Heparin Sodium) 2,500 unit 1X ONCE IART 05/24/21 15:15 05/24/21 15:46 DC 05/24/21 13:40 Heparin Sodium/ Sodium Chloride (HEPARIN for ARTERIAL LINE FLUSH) 1,000 unit 1X ONCE IART 05/24/21 15:15 05/24/21 15:46 DC 05/24/21 15:15 Midazolam HCl (Versed) 4 mg 1X ONCE IV 05/24/21 15:15 05/24/21 15:46 DC 05/24/21 14:52 Fentanyl Citrate (Fentanyl 2ml Vial) 150 mcg 1X ONCE IV 05/24/21 15:15 05/24/21 15:46 DC 05/24/21 15:15 Iodixanol (Visipaque 320) 100 ml 1X ONCE IART 05/24/21 15:15 05/24/21 15:46 DC 05/24/21 15:15 Heparin Sodium (Porcine) (Heparin Sodium) 8,000 unit 1X ONCE IV 05/24/21 15:15 05/24/21 15:46 DC 05/24/21 15:06 Lidocaine HCl (Lidocaine 1% 20ml Vial) 20 ml 1X ONCE INJ 05/24/21 15:15 05/24/21 15:46 DC 05/24/21 13:29 Phenylephrine HCl (PHENYLEPHRINE in 0.9% NACL PF) 0.1 mg 1X ONCE IV 05/24/21 15:15 05/24/21 15:46 DC 05/24/21 13:46 Lidocaine HCl (Xylocaine-Mpf 1% 2ml Vial) 2 ml 1X ONCE INJ 05/24/21 15:15 05/24/21 15:46 DC 05/24/21 15:15 Sodium Chloride 1,000 ml @ 1,000 mls/hr 1X ONCE IV 05/24/21 15:15 05/24/21 16:14 DC 05/24/21 14:00 Clopidogrel Bisulfate (Plavix) 300 mg 1X ONCE PO 05/24/21 16:00 05/24/21 16:01 DC 05/24/21 16:00 Fentanyl Citrate (Fentanyl 2ml Vial) 50 mcg PRN Q2HR PRN IVP PAIN 05/24/21 18:30 05/24/21 19:54 Furosemide (Lasix) 40 mg 1X ONCE IVP 05/25/21 09:30 05/25/21 09:31 DC 05/25/21 10:11 Potassium Chloride (Klor-Con) 40 meq 1X ONCE PO 05/25/21 09:30 05/25/21 09:31 DC 05/25/21 10:12 Justifications for Admission Other Justification PAUL CHAVEZ MD May 25, 2021 10:41
--- NOTE | 2021-05-25 11:04 | PDOC ---
PULMONARY PROGRESS NOTES DATE: 05/25/21 TIME: 11:02 Subjective No overnight events patient off of oxygen, sitting up in a chair, no chest pain no pressure on room air Vitals Vital Signs Date Time Temp Pulse Resp B/P (MAP) Pulse Ox O2 Delivery O2 Flow Rate FiO2 05/25/21 08:30 95 Nasal Cannula 2.0 05/25/21 08:05 92 150/72 05/25/21 08:00 98.7 18 98.7 ROS: No Nausea, No Abdominal Pain, No Increase Cough General: Alert Lungs: Clear Cardiovascular: S1, S2 Abdomen: Soft, Non-tender Neuro Exam: Alert, Oriented Extremities: No Edema Skin: Warm Labs Laboratory Tests Test 05/23/21 12:00 05/24/21 04:45 White Blood Count 8.6 x10^3/uL (4.0-11.0) 9.3 x10^3/uL (4.0-11.0) Red Blood Count 3.16 x10^6/uL (4.30-5.70) 2.98 x10^6/uL (4.30-5.70) Hemoglobin 8.5 g/dL (13.0-17.5) 8.2 g/dL (13.0-17.5) Hematocrit 26.9 % (39.0-53.0) 25.9 % (39.0-53.0) Mean Corpuscular Volume 85 fL (79-100) 87 fL (79-100) Mean Corpuscular Hemoglobin 27 pg (25-35) 27 pg (25-35) Mean Corpuscular Hemoglobin Concent 32 g/dL (31-37) 32 g/dL (31-37) Red Cell Distribution Width 17.9 % (11.5-14.5) 18.5 % (11.5-14.5) Platelet Count 310 x10^3/uL (140-400) 282 x10^3/uL (140-400) Neutrophils (%) (Auto) 74 % (31-73) Lymphocytes (%) (Auto) 13 % (24-48) Monocytes (%) (Auto) 10 % (0-9) Eosinophils (%) (Auto) 2 % (0-3) Basophils (%) (Auto) 1 % (0-3) Neutrophils # (Auto) 6.3 x10^3/uL (1.8-7.7) Lymphocytes # (Auto) 1.1 x10^3/uL (1.0-4.8) Monocytes # (Auto) 0.9 x10^3/uL (0.0-1.1) Eosinophils # (Auto) 0.2 x10^3/uL (0.0-0.7) Basophils # (Auto) 0.1 x10^3/uL (0.0-0.2) Sodium Level 138 mmol/L (136-145) 142 mmol/L (136-145) Potassium Level 3.7 mmol/L (3.5-5.1) 3.4 mmol/L (3.5-5.1) Chloride Level 103 mmol/L (98-107) 107 mmol/L (98-107) Carbon Dioxide Level 26 mmol/L (21-32) 26 mmol/L (21-32) Anion Gap 9 (6-14) 9 (6-14) Blood Urea Nitrogen 9 mg/dL (8-26) 9 mg/dL (8-26) Creatinine 0.9 mg/dL (0.7-1.3) 0.9 mg/dL (0.7-1.3) Estimated GFR (Cockcroft-Gault) 82.7 82.7 Glucose Level 85 mg/dL (70-99) 95 mg/dL (70-99) Calcium Level 8.4 mg/dL (8.5-10.1) 8.3 mg/dL (8.5-10.1) Magnesium Level 1.9 mg/dL (1.8-2.4) Medications Active Scripts Medications Dose Route/Sig Max Daily Dose Days Date Category Dose Instructions Colace (Docusate Sodium) 100 Mg Capsule 1 Cap PO BID 11/18/15 Reported Coumadin (Warfarin Sodium) 3 Mg Tablet 1 Tab PO DAILY 11/18/15 Reported Ferrous Sulfate 325 Mg Tablet 325 Mg PO 10/29/15 Reported Next dose tomorrow 11/19/15 09 am. Viagra (Sildenafil Citrate) 100 Mg Tablet 100 Mg PO ONCE 10/29/15 Reported Resume prior to hospitalization. Atorvastatin Calcium 10 Mg Tablet 10 Mg PO HS 10/29/15 Reported Next dose tonight at bed time. Lisinopril 20 Mg Tablet 10 Mg PO DAILY 04/08/15 Reported Next dose tomorrow 11/19/15 at 9 am. Impression . IMPRESSION: 1. Acute hypoxemic respiratory failure secondary to acute systolic heart failure. 2. Chronic obstructive pulmonary disease with exacerbation. Resolved. 3. Hypertension. 4. Tobacco dependent. Smoked for 58 years. 5. Non-ST segment elevation myocardial infarction. 6. Acute blood loss anemia. Hemoglobin is 6.9 upon arrival, status post transfusion. 7. Acute kidney injury. 8. Hypotension, suspect hypovolemia, possibly cardiogenic shock. Resolved. 9. Cardiomyopathy ejection fraction 25% 10. Coronary artery disease, with 90% LAD occlusion Cardiac catheterization Wedge 33 mmHg Cardiac output 4.2 L/min, cardiac index 2.1 PA saturation 48% FA saturation 88% on 10 L nasal cannula Coronary angiography: Left main is a large caliber calcified vessel with a distal 50% stenosis LAD is a large caliber calcified vessel with an ostial 95% stenosis D1 is a moderate caliber vessel with normal angiographic appearance Left circumflex is a moderate to large caliber vessel with mild luminal irregularities OM1 is a moderate caliber vessel with mild luminal irregularities RCA is a moderate to large caliber dominant vessel with a mid subtotal occlusion with [id number] collaterals noted. Conclusion 1. Acute on chronic systolic and diastolic heart failure 2. Severe secondary pulmonary hypertension 3. Mildly decreased cardiac output 4. Acute respiratory failure secondary to cardiogenic shock and volume overload 5. Two-vessel coronary artery disease with left main involvement Recommendations 1. Initiate patient on Lasix drip, milrinone drip and heparin drip 2. After stabilization we will assess the patient's risk status for possible complex PCI versus bypass surgery. Plan . Updated 05/25/2010 PCI done. Patient declined for CABG. Discussed with nurse Will need a 6-minute walk test before discharge Continue optimizing cardiac medication for cardiogenic shock and acute systolic heart failure. Continue to diurese Follow-up chest x-ray. Last chest x-ray on 05/17/2021 reveals diffuse interstitial infiltrates. Follow-up chest x-ray yesterday showed mild improvement in CHF Oxygen supplementation Monitor H&H, stable Replace potassium as needed Renal function is now back to normal. Discharge plan per cardiology Updated 05/24/2010 PCI scheduled today. Patient declined for CABG. Discussed with nurse Currently on room air, respiratory status compensated Continue optimizing cardiac medication for cardiogenic shock and acute systolic heart failure. Currently on milrinone. Continue to diurese Follow-up chest x-ray. Last chest x-ray on 05/17/2021 reveals diffuse interstitial infiltrates. Oxygen supplementation Monitor H&H, stable Replace potassium as needed Renal function is now back to normal. Updated 05/22/2010 PCI in the morning Discussed with nurse Currently on room air, respiratory status compensated Continue optimizing cardiac medication for cardiogenic shock and acute systolic heart failure Continue to diurese Oxygen supplementation Monitor H&H, stable Replace potassium Monitor creatinine JUAN DANIEL HERMAN MD May 25, 2021 11:04
[2021-05-25 12:00] VITALS: BP 121/47
[2021-05-25 13:32] LABS: BASO # 0.1 x10^3/uL (0.0-0.2); BASO % 1 % (0-3); EOS # 0.2 x10^3/uL (0.0-0.7); EOS % 2 % (0-3); HEMATOCRIT 32.4 % (39.0-53.0); LYMPH % 9 % (24-48); MEAN CORPUSCULAR HEMOGLOBIN 27 pg (25-35); MEAN CORPUSCULAR HGB CONC 31 g/dL (31-37); MEAN CORPUSCULAR VOLUME 86 fL (79-100); MONO % 9 % (0-9); NEUT # 9.3 x10^3/uL (1.8-7.7); NEUT % 80 % (31-73); PLATELET COUNT 332 x10^3/uL (140-400); RED BLOOD COUNT 3.76 x10^6/uL (4.30-5.70); RED CELL DISTRIBUTION WIDTH 18.2 % (11.5-14.5); WHITE BLOOD COUNT 11.5 x10^3/uL (4.0-11.0)
[2021-05-25 13:35] LABS: CALCIUM 8.5 mg/dL (8.5-10.1); CREATININE 0.9 mg/dL (0.7-1.3); GFR 82.7; POTASSIUM 3.7 mmol/L (3.5-5.1)
[2021-05-25 13:41] LABS: ALBUMIN 2.7 g/dL (3.4-5.0); ALBUMIN/GLOBULIN RATIO 0.6 (1.0-1.7); TOTAL BILIRUBIN 0.5 mg/dL (0.2-1.0); TOTAL PROTEIN 7.2 g/dL (6.4-8.2)
[2021-05-25 16:00] VITALS: BP 160/78
[2021-05-25] MEDS ORDERED: ATOR40TA59 PO (16:28)
[2021-05-25] MEDS ORDERED: EMPA10TA3 PO (16:28)
[2021-05-25] MEDS ORDERED: CARV3.1210 PO (16:28)
[2021-05-25] MEDS ORDERED: CLOP75TA PO (16:28)
[2021-05-25] MEDS ORDERED: ASPI-886 PO (16:28)
[2021-05-25] MEDS ORDERED: FURO40TA4 PO (16:28)
[2021-05-25] MEDS ORDERED: LISI5TAB15 PO (16:28)
--- NOTE | 2021-05-25 16:53 | PDOC3 ---
Discharge Summary Visit Information Date of Admission: May 15, 2021 Date of Discharge: May 25, 2021 Brief Hospital Course Allergies Allergies Coded Allergies Type Severity Reaction Last Updated Verified No Known Drug Allergies 04/08/15 No Vital Signs Vital Signs Date Time Temp Pulse Resp B/P (MAP) Pulse Ox O2 Delivery O2 Flow Rate FiO2 05/25/21 12:00 99.0 121/47 (71) 93 Room Air 99.0 05/25/21 08:30 2.0 05/25/21 08:05 92 05/25/21 08:00 18 Lab Results Laboratory Tests Test 05/24/21 04:45 05/25/21 13:06 05/25/21 13:25 White Blood Count 9.3 x10^3/uL (4.0-11.0) 11.5 x10^3/uL (4.0-11.0) Red Blood Count 2.98 x10^6/uL (4.30-5.70) 3.76 x10^6/uL (4.30-5.70) Hemoglobin 8.2 g/dL (13.0-17.5) 10.0 g/dL (13.0-17.5) Hematocrit 25.9 % (39.0-53.0) 32.4 % (39.0-53.0) Mean Corpuscular Volume 87 fL (79-100) 86 fL (79-100) Mean Corpuscular Hemoglobin 27 pg (25-35) 27 pg (25-35) Mean Corpuscular Hemoglobin Concent 32 g/dL (31-37) 31 g/dL (31-37) Red Cell Distribution Width 18.5 % (11.5-14.5) 18.2 % (11.5-14.5) Platelet Count 282 x10^3/uL (140-400) 332 x10^3/uL (140-400) Sodium Level 142 mmol/L (136-145) 139 mmol/L (136-145) Potassium Level 3.4 mmol/L (3.5-5.1) 3.7 mmol/L (3.5-5.1) Chloride Level 107 mmol/L (98-107) 103 mmol/L (98-107) Carbon Dioxide Level 26 mmol/L (21-32) 27 mmol/L (21-32) Anion Gap 9 (6-14) 9 (6-14) Blood Urea Nitrogen 9 mg/dL (8-26) 8 mg/dL (8-26) Creatinine 0.9 mg/dL (0.7-1.3) 0.9 mg/dL (0.7-1.3) Estimated GFR (Cockcroft-Gault) 82.7 82.7 Glucose Level 95 mg/dL (70-99) 87 mg/dL (70-99) Calcium Level 8.3 mg/dL (8.5-10.1) 8.5 mg/dL (8.5-10.1) BUN/Creatinine Ratio 9 (6-20) Total Bilirubin 0.5 mg/dL (0.2-1.0) Aspartate Amino Transf (AST/SGOT) 23 U/L (15-37) Alanine Aminotransferase (ALT/SGPT) 35 U/L (16-63) Alkaline Phosphatase 62 U/L (46-116) Total Protein 7.2 g/dL (6.4-8.2) Albumin 2.7 g/dL (3.4-5.0) Albumin/Globulin Ratio 0.6 (1.0-1.7) Neutrophils (%) (Auto) 80 % (31-73) Lymphocytes (%) (Auto) 9 % (24-48) Monocytes (%) (Auto) 9 % (0-9) Eosinophils (%) (Auto) 2 % (0-3) Basophils (%) (Auto) 1 % (0-3) Neutrophils # (Auto) 9.3 x10^3/uL (1.8-7.7) Lymphocytes # (Auto) 1.0 x10^3/uL (1.0-4.8) Monocytes # (Auto) 1.0 x10^3/uL (0.0-1.1) Eosinophils # (Auto) 0.2 x10^3/uL (0.0-0.7) Basophils # (Auto) 0.1 x10^3/uL (0.0-0.2) Laboratory Tests Test 05/25/21 13:06 05/25/21 13:25 Sodium Level 139 mmol/L (136-145) Potassium Level 3.7 mmol/L (3.5-5.1) Chloride Level 103 mmol/L (98-107) Carbon Dioxide Level 27 mmol/L (21-32) Anion Gap 9 (6-14) Blood Urea Nitrogen 8 mg/dL (8-26) Creatinine 0.9 mg/dL (0.7-1.3) Estimated GFR (Cockcroft-Gault) 82.7 BUN/Creatinine Ratio 9 (6-20) Glucose Level 87 mg/dL (70-99) Calcium Level 8.5 mg/dL (8.5-10.1) Total Bilirubin 0.5 mg/dL (0.2-1.0) Aspartate Amino Transf (AST/SGOT) 23 U/L (15-37) Alanine Aminotransferase (ALT/SGPT) 35 U/L (16-63) Alkaline Phosphatase 62 U/L (46-116) Total Protein 7.2 g/dL (6.4-8.2) Albumin 2.7 g/dL (3.4-5.0) Albumin/Globulin Ratio 0.6 (1.0-1.7) White Blood Count 11.5 x10^3/uL (4.0-11.0) Red Blood Count 3.76 x10^6/uL (4.30-5.70) Hemoglobin 10.0 g/dL (13.0-17.5) Hematocrit 32.4 % (39.0-53.0) Mean Corpuscular Volume 86 fL (79-100) Mean Corpuscular Hemoglobin 27 pg (25-35) Mean Corpuscular Hemoglobin Concent 31 g/dL (31-37) Red Cell Distribution Width 18.2 % (11.5-14.5) Platelet Count 332 x10^3/uL (140-400) Neutrophils (%) (Auto) 80 % (31-73) Lymphocytes (%) (Auto) 9 % (24-48) Monocytes (%) (Auto) 9 % (0-9) Eosinophils (%) (Auto) 2 % (0-3) Basophils (%) (Auto) 1 % (0-3) Neutrophils # (Auto) 9.3 x10^3/uL (1.8-7.7) Lymphocytes # (Auto) 1.0 x10^3/uL (1.0-4.8) Monocytes # (Auto) 1.0 x10^3/uL (0.0-1.1) Eosinophils # (Auto) 0.2 x10^3/uL (0.0-0.7) Basophils # (Auto) 0.1 x10^3/uL (0.0-0.2) Brief Hospital Course Mr. Hummel is a 75 old male who presented with acute on chronic systolic CHF with type II [place], demand ischemia. He had echocardiogram that showed severe hypokinesis, EF 25%. Consultation was placed to cardiology. On 05/16/2021 he had cardiac catheterization that showed severe acute on chronic systolic and diastolic heart failure. He was initiated on milrinone drip and heparin drip. He is diuresed several liters while inpatient. For optimization of his renal function consultation was placed to nephrology. Due to his ongoing hematochezia, consultation was placed to GI; he was recommended IV PPI. Patient had prior colonoscopy years ago, and notes some rectal bleeding for months. He was monitored with no acute need for colonoscopy. He was deemed high risk for revascularization and would likely not do well with a CABG. As such patient was recommended angioplasty/stent. He had angioplasty on 05/24/2021 with successful complex PCI of the left main and LAD with atherectomy and intravascular ultrasound guidance; unsuccessful complex PTCA of the right coronary artery due to heavy calcific disease; successful insertion and removal of a Impella CP left ventricular percutaneous assist device. Patient was fitted for LifeVest on 05/25/2021. He was recommended outpatient follow-up for reevaluation for ICD therapy. Stable discharge home on 05/25/2021 Discharge Information Condition at Discharge: Stable Follow Up: Weeks Disposition/Orders: D/C to Home Scheduled Aspirin (Aspirin Ec) 81 Mg Tablet.dr, 81 MG PO DAILYWBKFT for CAD, #30 Ref 3 Prescribed by: PAUL CHAVEZ MD on 05/25/21 1628 Atorvastatin Calcium (Atorvastatin Calcium) 40 Mg Tablet, 40 MG PO QHS for CAD, #30 Ref 3 Prescribed by: PAUL CHAVEZ MD on 05/25/21 1628 Carvedilol (Carvedilol ) 3.125 Mg Tablet, 3.125 MG PO BIDWMEALS for CHF, #30 Ref 3 Prescribed by: PAUL CHAVEZ MD on 05/25/218 Clopidogrel Bisulfate (Clopidogrel) 75 Mg Tablet, 75 MG PO DAILYWBKFT for CAD, #30 Ref 3 Prescribed by: PAUL CHAVEZ MD on 05/25/211627 Docusate Sodium (Colace) 100 Mg Capsule, 1 CAP PO BID, #30 (Reported) Entered as Reported by: OSCAR CORMIER on 11/18/15 1418 Last Action: Continued on 05/15/211707 by ORLANDO GONZALEZ MD Empagliflozin (Jardiance) 10 Mg Tablet, 10 MG PO DAILY for DM2/CHF, #30 Ref 3 Prescribed by: PAUL CHAVEZ MD on 05/25/211627 Lisinopril (Lisinopril) 5 Mg Tablet, 5 MG PO DAILY for CHF, #30 Ref 3 Prescribed by: PAUL CHAVEZ MD on 05/25/211627 Scheduled PRN Furosemide (Furosemide) 40 Mg Tablet, 40 MG PO PRN DAILY PRN for PER [facility] INSTRUCTIONS, #30 Ref 2 Prescribed by: PAUL CHAVEZ MD on 05/25/211627 Miscellaneous Medications Ferrous Sulfate (Ferrous Sulfate) 325 Mg Tablet, 325 MG PO, (Reported) Next dose tomorrow 11/19/15 09 am. Entered as Reported by: MICHAEL PELLETIER on 10/29/15 130 Last Action: HELD on 05/15/211707 by ORLANDO GONZALEZ MD Discontinued Medications Atorvastatin Calcium (Atorvastatin Calcium) 10 Mg Tablet, 10 MG PO HS for FOR CHOLESTEROL, #30 Ref 0 (Reported) Next dose tonight at bed time. Entered as Reported by: MICHAEL PELLETIER on 10/29/15 1303 Last Action: Continued on 05/15/211707 by ORLANDO GONZALEZ MD Lisinopril (Lisinopril) 20 Mg Tablet, 10 MG PO DAILY for FOR HYPERTENSION, #30 Ref 0 (Reported) Next dose tomorrow 11/19/15 at 9 am. Entered as Reported by: HORACIO BURTON on 04/08/15 0857 Last Action: Continued on 05/15/211707 by ORLANDO GONZALEZ MD Sildenafil Citrate (Viagra) 100 Mg Tablet, 100 MG PO ONCE for SEE COMMENTS, (Reported) Resume prior to hospitalization. Entered as Reported by: MICHAEL PELLETIER on 10/29/15 130 Last Action: HELD on 05/15/211707 by ORLANDO GONZALEZ MD Warfarin Sodium (Coumadin) 3 Mg Tablet, 1 TAB PO DAILY, #30 Ref 5 (Reported) Entered as Reported by: OSCAR CORMIER on 11/18/15 1418 Last Action: HELD on 05/15/211707 by ORLANDO GONZALEZ MD Justicifation of Admission Dx: Justifications for Admission: Justification of Admission Dx: Yes CHF: Hemodynamic Instability [place]: Acute NSTEMI PAUL CHAVEZ MD May 25, 2021 16:53
[2021-05-25 17:34] VITALS: BP 160/78
[2021-05-26] MEDS ORDERED: POTASSIUM CHLORIDE 10 MEQ TABLET.ER. PO SCH (08:00)
[2021-05-26] MEDS ORDERED: LISINOPRIL 5 MG TABLET. PO SCH (09:00)
[2021-05-26] MEDS ORDERED: EMPAGLIFLOZIN 10 MG TABLET. PO SCH (09:00)
[2021-05-26] MEDS ORDERED: FUROSEMIDE 40 MG TABLET. PO PRN (09:00)
== END 2021-05-25 18:00 | disposition home or self-care (01) | DRG 216 ==
LOC: 6 SOUTH 16:27 → 1 WEST ICU 21:58
PROVIDERS: ADMIT Student in an Organized Health Care Education/Training Program; ATTEND Student in an Organized Health Care Education/Training Program
PROC: 5A09357 Assistance with Respiratory Ventilation, Less than 24 Consecutive Hours, Continuous Positive Airway Pressure (ICD-10-PCS; principal; 2021-05-15)
PROC: 5A0935A Assistance with Respiratory Ventilation, Less than 24 Consecutive Hours, High Flow/Velocity Cannula (ICD-10-PCS; 2021-05-15)
PROC: 4A023N8 Measurement of Cardiac Sampling and Pressure, Bilateral, Percutaneous Approach (ICD-10-PCS; 2021-05-17)
PROC: B2111ZZ Fluoroscopy of Multiple Coronary Arteries using Low Osmolar Contrast (ICD-10-PCS; 2021-05-17)
PROC: 02HA3RJ Insertion of Short-term External Heart Assist System into Heart, Intraoperative, Percutaneous Approach (ICD-10-PCS; 2021-05-24)
PROC: 5A02210 Assistance with Cardiac Output using Balloon Pump, Continuous (ICD-10-PCS; 2021-05-24)
PROC: 027034Z Dilation of Coronary Artery, One Artery with Drug-eluting Intraluminal Device, Percutaneous Approach (ICD-10-PCS; 2021-05-24)
PROC: 02C03ZZ Extirpation of Matter from Coronary Artery, One Artery, Percutaneous Approach (ICD-10-PCS; 2021-05-24)
PROC: 02703ZZ Dilation of Coronary Artery, One Artery, Percutaneous Approach (ICD-10-PCS; 2021-05-24)
PROC: 30233N1 Transfusion of Nonautologous Red Blood Cells into Peripheral Vein, Percutaneous Approach (ICD-10-PCS; 2021-05-24)
PROC: B240ZZ3 Ultrasonography of Single Coronary Artery, Intravascular (ICD-10-PCS; 2021-05-24)
PROC: B4101ZZ Fluoroscopy of Abdominal Aorta using Low Osmolar Contrast (ICD-10-PCS; 2021-05-24)
DX: I11.0 Hypertensive heart disease with heart failure (principal); J96.01 Acute respiratory failure with hypoxia; I21.A1 Myocardial infarction type 2; I50.43 Acute on chronic combined systolic (congestive) and diastolic (congestive) heart failure; R57.0 Cardiogenic shock; D62 Acute posthemorrhagic anemia; N17.9 Acute kidney failure, unspecified; D69.6 Thrombocytopenia, unspecified; E78.5 Hyperlipidemia, unspecified; E87.6 Hypokalemia; F17.210 Nicotine dependence, cigarettes, uncomplicated; I25.10 Atherosclerotic heart disease of native coronary artery without angina pectoris; I25.2 Old myocardial infarction; I25.5 Ischemic cardiomyopathy; I27.29 Other secondary pulmonary hypertension; J43.9 Emphysema, unspecified; Z82.49 Family history of ischemic heart disease and other diseases of the circulatory system; Z96.642 Presence of left artificial hip joint; M19.90 Unspecified osteoarthritis, unspecified site
CPT/HCPCS: 33210; 33991; 92920; 92933; 92978; 92979; 93458; 93460; G0269; 36415; 36430; 36600; 71045; 71260; 76937; 80048; 80053; 80061; 80069; 82607; 82805; 83540; 83550; 83735; 84443; 84484; 85025; 85027; 85347; 85520; 86850; 86900; 86901; 86920; 93306; 94660; 94760; 99152; 99153; C1725; C1753; C1769; C1773; C1874; C1894; C9113; J0456; J0696; J1644; J1940; J2250; J2260; J2370; J3010; J3490; J7030; J7050; P9016; Q9967; C8929; G0378

== ENCOUNTER → 2021-06-24 | Outpatient (CLI) | payer MEDICARE, OTHER ==
[2021-05-25 17:34] VITALS: BP 160/78
[~2021-06-24] MED LIST changes: +ASPI-886 PO; +ATOR40TA59 PO; +CARV3.1210 PO; +CLOP75TA PO; +EMPA10TA3 PO; +FURO40TA4 PO; +LISI5TAB15 PO
[2021-06-24 11:35] LABS: BASO # 0.1 x10^3/uL (0.0-0.2); BASO % 2 % (0-3); EOS # 0.3 x10^3/uL (0.0-0.7); EOS % 4 % (0-3); HEMATOCRIT 37.5 % (39.0-53.0); HEMOGLOBIN 12.2 g/dL (13.0-17.5); LYMPH # 1.3 x10^3/uL (1.0-4.8); LYMPH % 19 % (24-48); MEAN CORPUSCULAR HEMOGLOBIN 30 pg (25-35); MEAN CORPUSCULAR HGB CONC 33 g/dL (31-37); MEAN CORPUSCULAR VOLUME 93 fL (79-100); MONO # 0.6 x10^3/uL (0.0-1.1); MONO % 8 % (0-9); NEUT # 4.8 x10^3/uL (1.8-7.7); NEUT % 67 % (31-73); PLATELET COUNT 266 x10^3/uL (140-400); RED BLOOD COUNT 4.04 x10^6/uL (4.30-5.70); RED CELL DISTRIBUTION WIDTH 24.2 % (11.5-14.5); WHITE BLOOD COUNT 7.1 x10^3/uL (4.0-11.0)
[2021-06-24 11:54] LABS: ALBUMIN 3.3 g/dL (3.4-5.0); ALBUMIN/GLOBULIN RATIO 0.8 (1.0-1.7); CALCIUM 8.5 mg/dL (8.5-10.1); GFR 73.2; POTASSIUM 3.7 mmol/L (3.5-5.1); TOTAL BILIRUBIN 0.3 mg/dL (0.2-1.0); TOTAL PROTEIN 7.7 g/dL (6.4-8.2)
[2021-06-24 11:58] LABS: CHOLESTEROL/HDL RATIO 2.7
[2021-06-24 16:03] LABS: ANISOCYTOSIS MOD; PLT ESTIMATE ADEQUATE (ADEQUATE)
== END ==
LOC: LAB 11:11
PROVIDERS: ATTEND Internal Medicine Cardiovascular Disease
DX: I25.10 Atherosclerotic heart disease of native coronary artery without angina pectoris (principal)
CPT/HCPCS: 36415; 80053; 80061; 83721; 83880; 85025